=== PATIENT | female | born 1975 | race Caucasian/White ===

== ENCOUNTER 2020-06-14 08:10 | Outpatient (REF) | payer OTHER, SELFPAY ==
[2020-06-14 08:43] LABS: MANUAL DIFF FLAG NO
[2020-06-14 08:49] LABS: Basophils Absolute Auto 0.1 X10*3/uL (0.0-0.2); Basophils Percent Auto 1.2 % (0-2); Eosinophils Absolute Auto 0.1 X10*3/uL (0.0-0.4); Eosinophils Percent Auto 1.2 % (0-4); Hematocrit 39.7 % (37-47); Hemoglobin 12.8 g/dl (12.0-16.0); Imm Gran Abs Auto 0.02 X10*3/uL (0.00-0.03); Imm Gran Pct Auto 0.3 % (0.0-0.4); Lymphocytes Absolute Auto 2.3 X10*3/uL (1.2-4.9); Mean Corpuscular HGB Conc 32.2 g/dl (31.0-35.0); Mean Corpuscular Hemoglobin 27.5 pg (27.0-33.0); Mean Corpuscular Volume 85.2 fL (80-98); Mean Platelet Volume 11.4 fL (9.4-12.3); Monocytes Absolute Auto 0.7 X10*3/uL (0.1-1.2); Neutrophils Absolute Auto 3.5 X10*3/uL (2.0-8.3); Neutrophils Percent Auto 52.3 % (45-73); Platelet Count 292 X10*3/uL (160-400); Red Blood Count 4.66 X10*6/uL (4.20-5.50); Red Cell Distribution Width 13.9 % (11.0-16.0); White Blood Count 6.6 X10*3/uL (4.8-10.8)
[2020-06-14 09:04] LABS: Alanine Aminotransferase 14 U/L (0-31); Albumin Level 4.1 g/dL (3.5-5.0); Alkaline Phosphatase 71 U/L (39-117); Anion Gap 11 (12-20); Aspartate Amino Transferase 21 U/L (5-31); Bilirubin Total 0.7 mg/dL (0.0-1.0); Blood Urea Nitrogen 7 mg/dL (9-16); Calcium 8.9 mg/dL (8.4-10.2); Carbon Dioxide 26 mmol/L (22-29); Chloride 107 mmol/L (96-108); Cholesterol 171 mg/dL; Estimated Glomerular Filt Rate > 60; Glucose Fasting 99 mg/dL (60-99); HDL Cholesterol 42 mg/dL; LDL Cholesterol Calculated 116 mg/dl; Potassium 3.9 mmol/L (3.3-5.1); Sodium 140 mmol/L (135-145); Total Protein 7.1 g/dL (6.5-8.0); Triglycerides 68 mg/dL
[2020-06-14 09:26] LABS: TSH reflex Free T4 1.27 uIU/mL (0.32-4.0)
[2020-06-14 10:23] LABS: Folate 16.6 ng/mL (> or = 4.0); Vitamin B12 490 pg/mL (200-900)
[2020-06-19 13:26] LABS: Vitamin D 25-OH, D2 4 ng/mL; Vitamin D 25-OH, D3 21 ng/mL; Vitamin D 25-OH, Total 25 ng/mL (30-100)
== END 2020-06-14 08:11 | disposition home or self-care (01) ==
LOC: HO.LAB 08:10
PROVIDERS: PCP Internal Medicine; Visit Provider Internal Medicine
DX: R53.82 Chronic fatigue, unspecified (principal); E55.9 Vitamin D deficiency, unspecified; E78.5 Hyperlipidemia, unspecified
CPT/HCPCS: 36415; 80053; 80061; 82306; 82607; 82746; 84443; 85025

== ENCOUNTER 2020-09-21 11:20 | Outpatient (REF) | payer OTHER, SELFPAY ==
--- NOTE | ~2020-09-21 | MM_ITS ---
EXAMINATION: MM SCREENING DIGITAL BREAST TOMOSYNTHESIS, BILATERAL CLINICAL INFORMATION: Screening. Asymptomatic. The lifetime risk of breast cancer based on the Tyrer-Cuzick Model is 6.6%. COMPARISON: Mammography: September 16, 2019 and studies dating back to November 24, 2015 TECHNIQUE: Digital breast tomosynthesis is performed in both the craniocaudal and mediolateral oblique views along with computer-aided detection (CAD). Synthesized 2D images are generated from the tomosynthesis. FINDINGS: The breasts are heterogeneously dense, which may obscure small masses (ACR BI-RADS breast composition Category c). There are no significant masses, abnormal calcifications, or other abnormalities. There are stable calcifications present bilaterally right greater than left. MM/MM tomosynthesis screening BI IMPRESSION: There are no significant changes from prior study. ASSESSMENT: BI-RADS 2: Benign RECOMMENDATION: Routine annual mammography screening. This patient's information was entered into a reminder system with a target due date for their next mammogram.
== END 2020-09-21 11:21 | disposition home or self-care (01) ==
LOC: HO.MAMMO 11:20
PROVIDERS: PCP Internal Medicine; Visit Provider Internal Medicine
DX: Z12.31 Encounter for screening mammogram for malignant neoplasm of breast (principal)
CPT/HCPCS: 77063; 77067

== ENCOUNTER 2021-05-03 08:27 | Outpatient (REF) | payer OTHER, SELFPAY ==
--- NOTE | ~2021-05-03 | XR_ITS ---
EXAMINATION: XR ABDOMEN KUB CLINICAL INDICATION: Calculus of kidney COMPARISON: None TECHNIQUE: AP view of the abdomen. FINDINGS: There is scattered stool and gas seen throughout the colon without significant distention. No radiopaque renal calculi seen. There is solitary phlebolith in pelvis. The gallbladder has been surgically removed. No gross bony abnormality seen. There is partial lumbarization of S1 vertebra. XR/XR KUB IMPRESSION: Mild constipation. No acute process seen.
[2021-05-03 08:46] LABS: MANUAL DIFF FLAG NO
[2021-05-03 09:38] LABS: Basophils Absolute Auto 0.1 X10*3/uL (0.0-0.2); Basophils Percent Auto 1.1 % (0-2); Eosinophils Absolute Auto 0.1 X10*3/uL (0.0-0.4); Eosinophils Percent Auto 1.5 % (0-4); Hematocrit 38.9 % (37.0-47.0); Hemoglobin 12.5 g/dl (12.0-16.0); Imm Gran Abs Auto 0.04 X10*3/uL (0.00-0.03); Imm Gran Pct Auto 0.5 % (0.0-0.4); Lymphocytes Absolute Auto 2.5 X10*3/uL (1.2-4.9); Lymphocytes Percent Auto 33.1 % (20-40); Mean Corpuscular HGB Conc 32.1 g/dl (31.0-35.0); Mean Corpuscular Hemoglobin 27.5 pg (27.0-33.0); Mean Corpuscular Volume 85.7 fL (80.0-98.0); Mean Platelet Volume 11.1 fL (9.4-12.3); Monocytes Absolute Auto 0.7 X10*3/uL (0.1-1.2); Monocytes Percent Auto 8.8 % (2-11); Neutrophils Absolute Auto 4.1 x10*3/uL (2.0-8.3); Platelet Count 335 X10*3/uL (160-400); Red Blood Count 4.54 X10*6/uL (4.20-5.50); Red Cell Distribution Width 13.9 % (11.0-16.0); White Blood Count 7.4 X10*3/uL (4.8-10.8)
[2021-05-03 10:06] LABS: Alanine Aminotransferase 15 U/L (0-31); Albumin Level 3.9 g/dL (3.5-5.0); Alkaline Phosphatase 61 U/L (39-117); Anion Gap 11 (12-20); Aspartate Amino Transferase 13 U/L (5-31); Bilirubin Total 0.5 mg/dL (0.0-1.0); Blood Urea Nitrogen 8 mg/dL (9-16); Calcium 9.3 mg/dL (8.4-10.2); Carbon Dioxide 27 mmol/L (22-29); Chloride 108 mmol/L (96-108); Cholesterol 171 mg/dL; Estimated Glomerular Filt Rate > 60; Glucose Fasting 87 mg/dL (60-99); HDL Cholesterol 48 mg/dL; LDL Cholesterol Calculated 100 mg/dl; Potassium 4.6 mmol/L (3.3-5.1); Sodium 141 mmol/L (135-145); Total Protein 6.8 g/dL (6.5-8.0); Triglycerides 118 mg/dL
[2021-05-07 13:56] LABS: Vitamin D 25-OH, D2 <4 ng/mL; Vitamin D 25-OH, D3 19 ng/mL; Vitamin D 25-OH, Total 19 ng/mL (30-100)
== END 2021-05-03 08:28 | disposition home or self-care (01) ==
LOC: HO.LAB 08:27
PROVIDERS: PCP Internal Medicine; Visit Provider Internal Medicine
DX: Z00.00 Encounter for general adult medical examination without abnormal findings (principal); R53.82 Chronic fatigue, unspecified; E55.9 Vitamin D deficiency, unspecified; N20.0 Calculus of kidney
CPT/HCPCS: 36415; 74018; 80053; 80061; 82306; 85025

== ENCOUNTER 2021-09-22 13:07 | Outpatient (REF) | payer OTHER, SELFPAY ==
--- NOTE | ~2021-09-22 | MM_ITS ---
EXAMINATION: MM SCREENING DIGITAL BREAST TOMOSYNTHESIS, BILATERAL CLINICAL INFORMATION: Screening. Asymptomatic. The lifetime risk of breast cancer based on the Tyrer-Cuzick Model is 7%. COMPARISON: Mammography: 09/21/2020, 09/16/2019, 03/28/2018; ultrasound right breast 08/11/2019, 01/16/2019; ultrasound left breast 06/19/2018. TECHNIQUE: Digital breast tomosynthesis is performed in both the craniocaudal and mediolateral oblique views along with computer-aided detection (CAD). Synthesized 2D images are generated from the tomosynthesis. FINDINGS: The breasts are heterogeneously dense, which may obscure small masses (ACR BI-RADS breast composition Category c). Parenchymal pattern is similar to prior studies. There is no developing density or architectural abnormality. Punctate calcification central and outer right breast are similar to prior studies. There are other benign coarse calcifications again seen as well. The axilla and skin contours are unremarkable. No significant changes. MM/MM tomosynthesis screening BI IMPRESSION: No significant changes from prior studies. ASSESSMENT: BI-RADS 2: Benign RECOMMENDATION: Routine annual mammography screening. This patient's information was entered into a reminder system with a target due date for their next mammogram.
== END 2021-09-22 13:08 | disposition home or self-care (01) ==
LOC: HO.MAMMO 13:07
PROVIDERS: PCP Internal Medicine; Visit Provider Internal Medicine
DX: Z12.31 Encounter for screening mammogram for malignant neoplasm of breast (principal)
CPT/HCPCS: 77063; 77067

== ENCOUNTER 2022-01-23 09:37 | Outpatient (REF) | payer OTHER, SELFPAY ==
[2022-01-24 09:25] LABS: CT PCR DETECTED (Not Detect.); NG PCR NOT DETECTED (Not Detect.)
== END 2022-01-23 09:38 | disposition home or self-care (01) ==
LOC: HO.LNP 09:37
PROVIDERS: PCP Internal Medicine; Visit Provider Obstetrics & Gynecology
DX: Z32.02 Encounter for pregnancy test, result negative (principal); R10.2 Pelvic and perineal pain; R31.29 Other microscopic hematuria
CPT/HCPCS: 81025; 87086; 87088; 87186; 87491; 87591; 99202

== ENCOUNTER 2022-01-25 05:59 | Outpatient (REF) | payer OTHER, SELFPAY ==
[2022-01-25 08:40] LABS: HBsAGNum1 0.31 S/CO (0.00-0.99); HIV AB/AG Nonreactive (Nonreactive); HIV Num 1 0.06 S/CO (0.00-0.99); Hepatitis B Surface Antigen Negative (Negative); ~HepC Num1 0.08 S/CO (0.00-0.79); ~Hepatitis C Antibody Nonreactive (Nonreactive)
[2022-01-26 05:12] LABS: Syphilis Screen Nonreactive (Nonreactive)
== END 2022-01-25 06:00 | disposition home or self-care (01) ==
LOC: HO.LAB 05:59
PROVIDERS: PCP Internal Medicine; Visit Provider Obstetrics & Gynecology
DX: Z11.4 Encounter for screening for human immunodeficiency virus [HIV] (principal); Z11.59 Encounter for screening for other viral diseases; A74.9 Chlamydial infection, unspecified
CPT/HCPCS: 36415; 86780; 86803; 87340; 87389

== ENCOUNTER 2022-02-13 12:09 | Outpatient (REF) | payer OTHER, SELFPAY ==
[2022-02-13 18:18] LABS: CT PCR NOT DETECTED (Not Detect.); NG PCR NOT DETECTED (Not Detect.)
== END 2022-02-13 12:10 | disposition home or self-care (01) ==
LOC: HO.LNP 12:09
PROVIDERS: PCP Internal Medicine; Visit Provider Obstetrics & Gynecology
DX: R31.29 Other microscopic hematuria (principal); Z86.19 Personal history of other infectious and parasitic diseases; Z32.02 Encounter for pregnancy test, result negative
CPT/HCPCS: 81025; 87491; 87591; 99212

== ENCOUNTER 2022-04-19 10:33 | Outpatient (REF) | payer OTHER, SELFPAY ==
--- NOTE | ~2022-04-19 | US_ITS ---
EXAM: Pelvic Ultrasound CLINICAL INDICATION: Pelvic and perineal pain COMPARISON: Pelvic ultrasound 06/27/2015 TECHNIQUE: The pelvis was evaluated using transabdominal and transvaginal imaging. FINDINGS: The uterus measures 9.6 x 5.0 x 5.9 cm in longitudinal by AP by transverse dimension. The endometrial stripe is not thickened and measures 0.7 cm. Some ill-defined hypoechoic regions within the posterior uterine fundus are nonspecific but possibly represent small fibroids. The left ovary measures approximately 4.0 x 2.1 x 3.2 cm and contains a 2 cm cyst, possibly corpus luteum. The right ovary measures approximately 3.0 x 1.3 x 1.8 cm and is normal. There are no abnormal adnexal masses. There is no free fluid in the pelvis. US/US pelvic and transvaginal IMPRESSION: -Normal thickness endometrial stripe. -Possible small posterior fundal fibroids.
== END 2022-04-19 10:34 | disposition home or self-care (01) ==
LOC: HO.US 10:33
PROVIDERS: PCP Internal Medicine; Visit Provider Obstetrics & Gynecology
DX: R10.2 Pelvic and perineal pain (principal)
CPT/HCPCS: 76830; 76856

== ENCOUNTER 2022-07-17 10:23 | Outpatient (REF) | payer OTHER, SELFPAY ==
[2022-07-17 14:33] LABS: CT PCR NOT DETECTED (Not Detect.); NG PCR NOT DETECTED (Not Detect.)
[2022-07-19 00:03] LABS: HPV mRNA E6/E7 rflx Not Detected (Not Detected)
== END 2022-07-17 10:24 | disposition home or self-care (01) ==
LOC: HO.LNP 10:23
PROVIDERS: PCP Internal Medicine; Visit Provider Obstetrics & Gynecology
DX: Z01.419 Encounter for gynecological examination (general) (routine) without abnormal findings (principal); Z11.51 Encounter for screening for human papillomavirus (HPV); R10.2 Pelvic and perineal pain; A74.9 Chlamydial infection, unspecified; R31.29 Other microscopic hematuria
CPT/HCPCS: 0353U; 87086; 87088; 87186; 87624; 88142; 99212

== ENCOUNTER 2022-08-08 08:26 | Outpatient (REF) | payer OTHER, SELFPAY | END 2022-08-08 08:27 | disposition home or self-care (01) | LOC: HO.LNP 08:26 | PROVIDERS: PCP Internal Medicine; Visit Provider Obstetrics & Gynecology | DX: R31.29 Other microscopic hematuria (principal) | CPT/HCPCS: 87086; 87088; 87186; 99212 ==

== ENCOUNTER 2022-08-10 12:39 | Emergency (ER) | payer OTHER, SELFPAY ==
--- NOTE | ~2022-08-10 | CT_ITS ---
EXAMINATION: CT ABDOMEN AND PELVIS WITH CONTRAST CLINICAL INFORMATION: Right-sided flank pain. COMPARISON: None available. TECHNIQUE: Multidetector volumetric images were obtained from the superior aspect of the liver through the pubic symphysis following administration 85 mL of Omnipaque 350 intravenous contrast. Sagittal and coronal reformatted images were obtained on the technologist's workstation. Oral contrast: No This CT examination was performed using dose optimization techniques as appropriate, variously including the following: *Automated exposure control *Adjustment of mA and/or kV according to patient size (this includes techniques or standardized protocols for targeted exams where dose is matched to indication/reason for exam; i.e. extremities or head) *Use of iterative reconstruction technique DLP: 534 mGy-cm FINDINGS: LUNG BASES: Mild hypoventilatory changes are present at both lung bases. LIVER, GALLBLADDER, AND BILIARY TREE: The liver is normal in size, shape, and attenuation. No focal hepatic lesion or biliary ductal dilatation is present. The gallbladder is surgically absent. No evidence of any intrahepatic or extremity biliary ductal dilatation present. PANCREAS: Unremarkable. SPLEEN: Unremarkable. ADRENAL GLANDS: Unremarkable. KIDNEYS AND URETERS: The kidneys are normal in size, shape, and attenuation. No hydronephrosis, hydroureter, or calculi seen. No perinephric stranding. Note is made of 2 radiopaque densities within the left lower hemipelvis, likely represent phlebolith and less likely to be distal left ureteric calculi (628 and [phone] series 4). BLADDER: Suboptimally distended. GASTROINTESTINAL TRACT: The small, large bowel loops are decompressed. The stomach is decompressed. Significant fecal residual is noted throughout the entire large bowel mostly to the right-sided colon. Nonvisualized appendix without any inflammatory changes around the cecum. Multiple nonopacified fluid-filled bowel loops are noted involving the distal ileum. ABDOMINAL WALL: No significant hernia is appreciated. LYMPH NODES: There are no pathologically enlarged retroperitoneal, mesenteric, pelvic and/or groin/inguinal lymphadenopathy. VASCULAR: Unremarkable. PELVIC VISCERA: Small volume free fluid is present within the dependent part of the pelvis and around both adnexal region (right greater than left). There appears to be hemorrhagic follicle present within the right ovary measuring approximately 1.8 cm at its maximum dimension. No evidence of any free air. OSSEOUS STRUCTURES: Transitional lumbar vertebra is present. Mild diffuse osteopenia. No suspicious focal lesion. CT/CT abdomen pelvis w IV con IMPRESSION: 1. No CT evidence of any radiopaque definite urinary tract calculi and/or obstruction. 2. Nonvisualized appendix without any inflammatory changes around the cecum. 3. Small volume free fluid within the dependent part of the pelvis and features suggestive of hemorrhagic follicle within the right ovary. 4. Surgically absent gallbladder and decompressed biliary tree. Fleischner guidelines were followed.
[2022-08-10 12:47] VITALS: BP 138/71; PULSE 72; RESP 20; TEMP 36; O2SAT 98; BMI 23.9
--- NOTE | 2022-08-10 12:48 | ED.GENADULT ---
HPI - General Adult General Chief complaint: Urogenital-Female Stated complaint: Back and Leg Pain Time Seen by Provider: 08/10/22 15:15 History of Present Illness HPI narrative: patient complains of right upper abdominal pain as well as right flank pain for past several days, pain is not changed by movement, there is no nausea vomiting diarrhea, there is mild dysuria and she is being treated with Macrobid, denies any fever chills, she is able to tolerate p.o., there is no chest pain no shortness of breath Related Data Home Medications Medication Instructions Recorded Confirmed gabapentin 400 mg capsule 400 mg PO TID 03/16/20 03/20/21 melatonin 5 mg tablet 500f10 mg PO BEDTIME PRN insomnia 03/16/20 03/20/21 mirtazapine 15 mg tablet 15 mg PO BEDTIME 03/16/20 03/20/21 risperidone 0.5 mg tablet 0.5 mg PO BEDTIME 03/16/20 03/20/21 Previous Rx's Medication Instructions Recorded calcitriol 0.25 mcg capsule 0.25 mcg PO DAILY 90 days #90 caps 09/14/21 ketorolac 10 mg tablet 10 mg PO TID PRN pain 5 days #15 08/10/22 tabs lidocaine 5 % topical patch 1 patch topical DAILY PRN pain #15 08/10/22 ea nitrofurantoin 100 mg PO BID 5 days #10 caps 08/10/22 monohydrate/macrocrystals 100 mg capsule (Macrobid) Allergies Allergy/AdvReac Type Severity Reaction Status Date / Time eggplant [EGGPLANT] Allergy Severe THROAT Verified 08/08/22 08:37 CLOSING sertraline Allergy Severe Nausea and Verified 08/08/22 08:37 Vomiting PMFSH Past Medical History Source: nursing notes reviewed Medical History Cervical radiculopathy Chronic fatigue Depression with anxiety Encounter for physical examination Insomnia Mild asthma Muscle spasm Surgical History History of section History of cholecystectomy History of tubal ligation Family History Family History Father Hypertension Diabetes Mother Hypertension Depression H/O: pituitary tumor Mental health disorder Son Hypoplastic anemia Sister History of kidney cancer Maternal Grandmother Cancer Social History Social History Housing: Apartment Alcohol intake: current Alcohol intake frequency: holidays/special occasions only Alcohol type: beer and wine Patient Tobacco Use Status: Current someday Tobacco user Tobacco use type: Cigarette Cigarettes Per Day: 3 e-Cigarette/Vaping Use: Never Used Second Hand Smoke Exposure: Yes Substance Use Type: Marijuana Advance Directives: No Advance Directives Information Provided: No service: No Current occupational status: disabled Cognitive needs: Yes (Cane) Hearing needs: No Vision needs: Yes (Glasses) Physical Exam ED Vital Signs: Vital Signs - 24 hr 08/10/22 12:47 08/10/22 15:49 08/10/22 17:24 Temperature 96.8 F 98.3 F 98.0 F Pulse Rate 72 65 66 Respiratory Rate 20 16 16 Blood Pressure 138/71 100/63 109/69 Pulse Oximetry 98 97 97 Oxygen Delivery Method Room Air Room Air Room Air BMI result Body Mass Index 23.9 general appearance is no acute distress The pharynx is moist no redness swelling or exudate Neck is supple Chest clear to auscultation bilateral Heart no murmur The abdomen had right upper quadrant tenderness as well as right flank tenderness and right CVA tenderness, there is no improvement or worsening with movement, no rebound no guarding Extremities range motion x4 Skin no rash Neuro no focal deficits Course Course Course Narrative: This is an RME: Additional HPI, ROS, PE not included below will be deferred to primary provider. Patient is a 47 year old female with a past medical history of uterine myoma and pelvic pain presents with RUQ pain radiating to back. Patient is currently being treated with macrobid for a UTI. The first course failed so she is on a second course of the same antibiotic. Patient denies fever, chills, shortness of breath, and weakness. Plan: labs, imaging: CT abdomen and pelvis Patient had tubal ligation 26 years ago Exam showed right upper quadrant and right flank tenderness, Labs CBC chemistry and urinalysis were negative At 07:[address] results pending case is signed out to physician assistant gonzales to follow CT results re-evaluate and dispo patient Reevaluation(s) Reevaluation #1: Patient's CT scan with no evidence of radiopaque urinary tract calculi and/or obstruction, nonvisualized appendix without inflammatory changes, patient's tenderness is not to low right lower quadrant therefore unlikely that this is atypical presentation of appendicitis. Small volume of free fluid within the dependent part of the pelvis and features suggestive of hemorrhagic follicle within the right ovary, no pelvic pain, vaginal bleeding or discharge. Will have her follow-up with OBGYN. Surgically absent gallbladder and decompressed biliary tree. Patient comfortable. Will discharge home on Toradol, Lidoderm patches. Likely musculoskeletal. Medications Administered Discontinued Medications Generic Name Dose Route Start Last Admin Trade Name Freq PRN Reason Stop Dose Admin Iohexol 100 ml 08/10/22 18:03 08/10/22 18:03 Iohexol 350 Mg/Ml 100 Ml Infus..Btl IV 08/10/22 18:04 85 ml ONCE ONE Administration Medical Decision Making Lab Data 08/10/22 13:10 08/10/22 13:10 Labs: Lab Results 08/10/22 08/10/22 08/10/22 Range/Units 13:10 13:10 13:10 WBC 7.1 (4.8-10.8) X10*3/uL RBC 4.78 (4.20-5.50) X10*6/uL Hgb 13.3 (12.0-16.0) g/dl Hct 40.6 (37.0-47.0) % MCV 84.9 (80.0-98.0) fL MCH 27.8 (27.0-33.0) pg MCHC 32.8 (31.0-35.0) g/dl RDW 14.2 (11.0-16.0) % Plt Count 256 (160-400) X10*3/uL MPV 11.1 (9.4-12.3) fL Immature Gran % (Auto) 0.3 (0.0-0.4) % Neut % (Auto) 61.9 (45-73) % Lymph % (Auto) 27.0 (20-40) % [place] % (Auto) 8.9 (2-11) % Eos % (Auto) 0.8 (0-4) % Baso % (Auto) 1.1 (0-2) % Lymph # (Auto) 1.9 (1.2-4.9) X10*3/uL [place] # (Auto) 0.6 (0.1-1.2) X10*3/uL Eos # (Auto) 0.1 (0.0-0.4) X10*3/uL Baso # (Auto) 0.1 (0.0-0.2) X10*3/uL Abs Immat Gran (auto) 0.02 (0.00-0.03) X10*3/uL Absolute Neuts (auto) 4.4 (2.0-8.3) x10*3/uL Absolute Nucleated RBC 0.000 (0.0-0.012) X10*3/uL Nucleated RBC % (auto) 0.0 (0.0-0.2) /100WBC Sodium 141 (135-145) mmol/L Potassium 4.1 (3.3-5.1) mmol/L Chloride 110 H (96-108) mmol/L Carbon Dioxide 24 (22-29) mmol/L Anion Gap 11 L (12-20) BUN 9 (9-16) mg/dL Creatinine 0.65 (0.5-1.4) mg/dL Estim Creat Clear Calc 100.1 Estimated GFR > 60 Random Glucose 97 (60-115) mg/dL Lactic Acid 1.1 (0.5-2.0) mmol/L Calcium 9.4 (8.4-10.2) mg/dL Magnesium 1.9 (1.6-2.6) mg/dL Total Bilirubin 0.2 (0.0-1.0) mg/dL AST 16 (5-31) U/L ALT 14 (0-31) U/L Alkaline Phosphatase 54 (39-117) U/L Total Protein 7.2 (6.5-8.0) g/dL Albumin 4.0 (3.5-5.0) g/dL Urine Color Urine Appearance Urine pH (5.0-9.0) Ur Specific [place] (1.005-1.025) Urine Protein (Neg-Trace) mg/dL Urine Glucose (UA) (Negative) mg/dL Urine Ketones (Negative) mg/dL Urine Blood (Negative) Urine Nitrite (Negative) Ur Leukocyte Esterase (Negative) 08/10/22 Range/Units 18:12 WBC (4.8-10.8) X10*3/uL RBC (4.20-5.50) X10*6/uL Hgb (12.0-16.0) g/dl Hct (37.0-47.0) % MCV (80.0-98.0) fL MCH (27.0-33.0) pg MCHC (31.0-35.0) g/dl RDW (11.0-16.0) % Plt Count (160-400) X10*3/uL MPV (9.4-12.3) fL Immature Gran % (Auto) (0.0-0.4) % Neut % (Auto) (45-73) % Lymph % (Auto) (20-40) % [place] % (Auto) (2-11) % Eos % (Auto) (0-4) % Baso % (Auto) (0-2) % Lymph # (Auto) (1.2-4.9) X10*3/uL [place] # (Auto) (0.1-1.2) X10*3/uL Eos # (Auto) (0.0-0.4) X10*3/uL Baso # (Auto) (0.0-0.2) X10*3/uL Abs Immat Gran (auto) (0.00-0.03) X10*3/uL Absolute Neuts (auto) (2.0-8.3) x10*3/uL Absolute Nucleated RBC (0.0-0.012) X10*3/uL Nucleated RBC % (auto) (0.0-0.2) /100WBC Sodium (135-145) mmol/L Potassium (3.3-5.1) mmol/L Chloride (96-108) mmol/L Carbon Dioxide (22-29) mmol/L Anion Gap (12-20) BUN (9-16) mg/dL Creatinine (0.5-1.4) mg/dL Estim Creat Clear Calc Estimated GFR Random Glucose (60-115) mg/dL Lactic Acid (0.5-2.0) mmol/L Calcium (8.4-10.2) mg/dL Magnesium (1.6-2.6) mg/dL Total Bilirubin (0.0-1.0) mg/dL AST (5-31) U/L ALT (0-31) U/L Alkaline Phosphatase (39-117) U/L Total Protein (6.5-8.0) g/dL Albumin (3.5-5.0) g/dL Urine Color Yellow Urine Appearance Clear Urine pH 7.5 (5.0-9.0) Ur Specific [place] 1.010 (1.005-1.025) Urine Protein Negative (Neg-Trace) mg/dL Urine Glucose (UA) Negative (Negative) mg/dL Urine Ketones Negative (Negative) mg/dL Urine Blood Negative (Negative) Urine Nitrite Negative (Negative) Ur Leukocyte Esterase Negative (Negative) Critical Care Time Critical Care Time Critical Care Time: No Discharge Plan Discharge Clinical Impression: Acute right flank pain, Flank pain Patient Disposition: Home, Self-Care Instructions: Flank Pain (ED) Additional Instructions: Take your medications as prescribed. If you were prescribed antibiotics today, it is important that you take your medication to their entirety, do not skip any doses, do not finish them early. Follow-up with your primary care provider this week. Return to the emergency department with new or worsening symptoms. Such as fevers, chills, chest pain, shortness of breath, nausea, vomiting, dizziness, headache, vision changes, lethargy In case of emergency call 911 Toradol has been sent to your pharmacy, you tolerated this well in the department. Please take this as prescribed do not take this with ibuprofen, or other NSAIDs, do not mix this with alcohol. Side effects of this medication including increased risk for bleeding and possible kidney injury. CT/CT abdomen pelvis w IV con IMPRESSION: ? 1. No CT evidence of any radiopaque definite urinary tract calculi and/or obstruction. 2. Nonvisualized appendix without any inflammatory changes around the cecum. 3. Small volume free fluid within the dependent part of the pelvis and features suggestive of hemorrhagic follicle within the right ovary. 4. Surgically absent gallbladder and decompressed biliary tree.? ? Fleischner guidelines were followed. Prescriptions: New ketorolac 10 mg tablet 10 mg PO TID PRN (Reason: pain) 5 Days Qty: 15 0RF lidocaine 5 % adhesive patch,medicated 1 patch topical DAILY PRN (Reason: pain) Qty: 15 0RF Rx Instructions: leave on most painful area for up to 12 hrs No Action calcitriol 0.25 mcg capsule 0.25 mcg PO DAILY 90 Days Qty: 90 1RF nitrofurantoin monohyd/m-cryst [Macrobid] 100 mg capsule 100 mg PO BID 5 Days Qty: 10 0RF risperidone 0.5 mg tablet 0.5 mg PO BEDTIME mirtazapine 15 mg tablet 15 mg PO BEDTIME melatonin 5 mg tablet 500f10 mg PO BEDTIME PRN (Reason: insomnia) gabapentin 400 mg capsule 400 mg PO TID Referrals: Tali Clemente MD [Primary Care Provider] - 2 days Stand Alone Forms: Work/School Release
[2022-08-10 13:17] LABS: MANUAL DIFF FLAG NO
[2022-08-10 13:18] LABS: Basophils Absolute Auto 0.1 X10*3/uL (0.0-0.2); Basophils Percent Auto 1.1 % (0-2); Eosinophils Absolute Auto 0.1 X10*3/uL (0.0-0.4); Eosinophils Percent Auto 0.8 % (0-4); Hematocrit 40.6 % (37.0-47.0); Hemoglobin 13.3 g/dl (12.0-16.0); Imm Gran Abs Auto 0.02 X10*3/uL (0.00-0.03); Imm Gran Pct Auto 0.3 % (0.0-0.4); Lymphocytes Absolute Auto 1.9 X10*3/uL (1.2-4.9); Mean Corpuscular HGB Conc 32.8 g/dl (31.0-35.0); Mean Corpuscular Hemoglobin 27.8 pg (27.0-33.0); Mean Corpuscular Volume 84.9 fL (80.0-98.0); Mean Platelet Volume 11.1 fL (9.4-12.3); Monocytes Absolute Auto 0.6 X10*3/uL (0.1-1.2); Monocytes Percent Auto 8.9 % (2-11); Neutrophils Absolute Auto 4.4 x10*3/uL (2.0-8.3); Neutrophils Percent Auto 61.9 % (45-73); Platelet Count 256 X10*3/uL (160-400); Red Blood Count 4.78 X10*6/uL (4.20-5.50); Red Cell Distribution Width 14.2 % (11.0-16.0); White Blood Count 7.1 X10*3/uL (4.8-10.8)
[2022-08-10 13:44] LABS: Lactic Acid 1.1 mmol/L (0.5-2.0)
[2022-08-10 13:51] LABS: Alanine Aminotransferase 14 U/L (0-31); Alkaline Phosphatase 54 U/L (39-117); Anion Gap 11 (12-20); Aspartate Amino Transferase 16 U/L (5-31); Bilirubin Total 0.2 mg/dL (0.0-1.0); Blood Urea Nitrogen 9 mg/dL (9-16); Calcium 9.4 mg/dL (8.4-10.2); Carbon Dioxide 24 mmol/L (22-29); Chloride 110 mmol/L (96-108); Creatinine Clr Calc Pharmacy 100.1; Estimated Glomerular Filt Rate > 60; Glucose Random 97 mg/dL (60-115); Magnesium 1.9 mg/dL (1.6-2.6); Potassium 4.1 mmol/L (3.3-5.1); Sodium 141 mmol/L (135-145); Total Protein 7.2 g/dL (6.5-8.0)
[2022-08-10 15:49] VITALS: BP 100/63; PULSE 65; RESP 16; TEMP 36.8; O2SAT 97
[2022-08-10 17:24] VITALS: BP 109/69; PULSE 66; RESP 16; TEMP 36.7; O2SAT 97
[2022-08-10] MEDS: iohexoL 350 MG/ML 100 ML INFUS..BTL IV (18:03)
[2022-08-10 18:25] LABS: Appearance Urine Clear; Color Urine Yellow; Glucose Urine UA Negative (Negative); Leukocyte Esterase Urine Negative (Negative); Nitrite Urine Negative (Negative); PH 7.5 (5.0-9.0); Urine Blood Negative (Negative); Urine Ketones Negative (Negative); Urine Protein Negative (Neg-Trace)
[2022-08-10 19:41] VITALS: BP 122/67; PULSE 67; RESP 14; O2SAT 97
[2022-08-10] MEDS: Lidocaine 4 % Patch ADH..PATCH 1 PATCH TRANSDERMA (19:42)
[2022-08-10] MEDS: Ketorolac Tromethamine 15 MG/ML VIAL 30 MG IM (19:43)
== END 2022-08-10 19:57 | disposition home or self-care (01) ==
PROVIDERS: Physician Assistant; Emergency Provider Emergency Medicine Emergency Medical Services; PCP Internal Medicine
DX: R10.9 Unspecified abdominal pain (principal); F17.210 Nicotine dependence, cigarettes, uncomplicated; F12.90 Cannabis use, unspecified, uncomplicated
CPT/HCPCS: 36415; 74177; 80053; 81003; 83605; 83735; 85025; 87040; 96372; 99284; J1885; Q9967

== ENCOUNTER 2022-09-04 16:58 | Outpatient (AMB) | payer OTHER, SELFPAY ==
[2022-09-04 17:01] VITALS: BP 110/74; BMI 23.6
--- NOTE | 2022-09-04 17:01 | MHC.PC.OV ---
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 Accompanied by: Self / Same As Patient Allergies eggplant [EGGPLANT] Allergy (Severe, Verified 09/04/22 17:10) THROAT CLOSING sertraline Allergy (Severe, Verified 09/04/22 17:10) Nausea and Vomiting Medication List - Last Reconciled 09/04/22 by Tali Rivera MD calcitriol 0.25 mcg PO DAILY 90 days gabapentin 400 mg PO TID ketorolac 10 mg PO TID PRN 5 days melatonin 500f10 mg PO BEDTIME PRN mirtazapine 15 mg PO BEDTIME risperidone 0.5 mg PO BEDTIME Tobacco use date assessed: 09/04/22 Dental Screening Dental Screen Date: 09/04/22 Did you have a dental visit in the last 12 months?: Yes Did you have a dental problem in the last 6 months where you did not have access to dental care?: No Was dental information given to patient?: Patient has dentist HPI HPI Comments History of Present Illness Details This is a 47-year-old female that comes today complaining of lumbar pain radiating to the right leg and associated with right leg numbness that has been present for about 4-6 weeks. She denies any fever, bowel or bladder incontinence. On gabapentin for her sciatica. Went to ER due to this matter last month and they thought he was flank pain and did a CT scan of the abdomen and pelvis. She also has and ovarian abnormality follow by OBGYN. [facility] Medical History Cervical radiculopathy Chronic fatigue Depression with anxiety Encounter for physical examination Insomnia Mild asthma Muscle spasm Surgical History History of section History of cholecystectomy History of tubal ligation Family History Father Hypertension Diabetes Mother Hypertension Depression H/O: pituitary tumor Mental health disorder Son Hypoplastic anemia Sister History of kidney cancer Maternal Grandmother Cancer Social History Housing: Apartment Alcohol intake: current Alcohol intake frequency: holidays/special occasions only Alcohol type: beer and wine Patient Tobacco Use Status: Current someday Tobacco user Tobacco use type: Cigarette Cigarettes Per Day: 3 e-Cigarette/Vaping Use: Never Used Second Hand Smoke Exposure: Yes Substance Use Type: Marijuana service: No Current occupational status: disabled Cognitive needs: Yes (Cane) Hearing needs: No Vision needs: Yes (Glasses) Female Reproductive History Menstrual Age of Menarche: 11 Questionnaire PHQ-9 Over the last 2 weeks, how often have you been bothered by any of the following problems? 1. Little interest or pleasure in doing things: not at all 2. Feeling down, depressed, or hopeless: several days 3. Trouble falling or staying asleep, or sleeping too much: not at all 4. Feeling tired or having little energy: not at all 5. Poor appetite or overeating: not at all 6. Feeling bad about yourself - or that you are a failure or have let yourself or your family down: not at all 7. Trouble concentrating on things, such as reading the newspaper or watching television: not at all 8. Moving or speaking so slowly that other people could have noticed. Or the opposite - being so fidgety or restless that you have been moving around a lot more than usual: not at all 9. Thoughts that you would be better off or of hurting yourself in some way: not at all Total score: 1 Depression Screening Interpretation: Negative 35252 - PHQ-9 Billing: Yes Source: Developed by Drs. Joseluis Espinoza, Mirtha Link, Jonathan Trejo and colleagues, with an educational maryan from [employer]. Thrive Questionnaire Date Thrive assessed: 09/04/22 I am a: Patient What is your living situation today?: I have a steady place to live Within the past 12 months, did the food you bought not last and you didn't have the money to get more?: Never true Within the past 12 months, did you worry whether your food would run out before you got money to buy more?: Never true Do you have trouble paying for medicines?: No Do you have trouble getting transportation to medical appointments?: No Do you have trouble paying your heating and electricity bill?: No Do you have trouble taking care of your child, family member or friend?: No Do you have trouble with day-to-day activities such as bathing, preparing meals, shopping, managing finances, etc.?: No Are you currently unemployed and looking for a job?: No Are you interested in more education?: No Please select the resources that you would like help with: None Currently or been in a relationship where the following occur: no concerns reported AUDIT C Alcohol Use Questionnaire (AUDIT-C) 1. How often do you have a drink containing alcohol?: Monthly or less 2. How many drinks containing alcohol do you have on a typical day when you are drinking?: 1 or 2 3. How often do you have six or more drinks on one occasion?: Never Total Score: 1 Score Reviewed/Action Taken: No HELDER-7 AMB Questionnaire HELDER-7 Date HELDER - 7 assessed: 09/04/22 Feeling nervous, anxious, or on edge: 1 = Several days Not being able to stop or control worryin = Not at all Worrying too much about different things: 0 = Not at all Trouble relaxin = Not at all Being so restless that it is hard to sit still: 0 = Not at all Becoming easily annoyed or irritable: 0 = Not at all Feeling afraid as if something awful might happen: 0 = Not at all Total HELDER-7 score (0-4 normal; 5-9 mild; 10-14 moderate; 15-21 severe): 1 Source: Developed by Drs. Joseluis Espinoza, Mirtha Link, Jonathan Trejo and colleagues, with an educational maryan from [employer]. HELDER-7 Assessment Billing HELDER-7 Assessment Tool: HELDER-7 Assessment 99089 Review of Systems Const All systems reviewed & are unremarkable except as noted in HPI and below Eyes Reports no additional complaints, Denies change in vision and Denies other visual disturbances Card Denies chest pain at rest, Denies chest pain with activity, Denies edema, Denies irregular heart rhythm, Denies claudication, Denies dyspnea, Denies dyspnea on exertion, Denies orthopnea, Denies paroxysmal nocturnal dyspnea and Denies slow heart rate Resp Denies cough, Denies dyspnea and Denies dyspnea on exertion GI Denies abdominal pain, Denies change in bowel habits, Denies excessive flatus, Denies nausea and Denies vomiting Denies urinary incontinence, Denies urinary hesitancy and Denies urinary urgency Musc Denies abnormal gait, Reports back pain, Denies atrophy, Denies deformity, Denies limited range of motion, Reports numbness and Reports radiating pain into limb Skin/Breast Denies bleeding lesions, Denies changing lesions and Denies rash Neuro Denies abnormal gait, Denies lack of coordination and Reports numbness Physical exam (Primary Care) Vital Signs: Last Vital Signs BP 110/74 09/04/22 17:01 BMI result Body Mass Index 23.6 Tobacco/Smoking Status: Tobacco use Status Tobacco use date assessed 09/04/22 09/04/22 17:06 Patient Tobacco Use Status Current someday Tobacco 09/04/22 17:06 Tobacco use type Cigarette 09/04/22 17:06 e-Cigarette/Vaping Use Never Used 09/04/22 17:06 PHQ-9: PHQ-9 Score PHQ-9: Total score 1 09/04/22 17:06 Depression Screening Interpretation: Negative Thrive Assessment: Date of Thrive Assessment Date Thrive assessed 09/04/22 09/04/22 17:06 Currently or been in a relationship where the following occur: no concerns reported Eyes General: appearance normal, both eyes and all related structures Eyelids: Yes eyelids normal Conjunctivae: conjunctivae normal Neck Neck: Yes normal visual inspection and Yes supple Resp Effort & Inspection: normal respiratory effort Auscultation: clear to auscultation bilaterally Cardio Jugular venous distension: no JVD Rate: regular rate Rhythm: regular rhythm Heart sounds: S1 normal heart sound present and S2 normal heart sound present Back/Spine/Pelvis Thoracic/Lumbar Spine: straight leg raise positive bilateral Extrem General: Yes full ROM Assessment and Plan Assessment & Plan (1) Right sided sciatica: Code(s): M54.31 - Sciatica, right side Plan: Continue gabapentin. X-ray ordered. Referred to pain management. Orders: Orders XR hip RT min 2V Today M25.551 - Pain in right hip XR lumbar spine 2-3V Today M54.50 - Low back pain, unspecified Comprehensive [place]. Panel Fast Today M54.50 - Low back pain, unspecified Lipid Panel Today Z00.00 - Encounter for general adult medical examination without abnormal findings Vitamin D 25-OH Total Today E55.9 - Vitamin D deficiency, unspecified Referrals Pain Management Referral M54.31 - Sciatica, right side Coding Level of Care Code Est Pt Level 3 (37573) Diagnoses Right sided sciatica M54.31 Additional Codes HELDER-7 Assessment Billing - HELDER-7 Assessment Tool: HELDER-7 Assessment 61536 ([id number]) Time Spent (min) 17
== END 2022-09-04 17:19 | disposition home or self-care (01) ==
PROVIDERS: PCP Internal Medicine; Visit Provider Internal Medicine
DX: M54.31 Sciatica, right side (principal)
CPT/HCPCS: 99213

== ENCOUNTER 2022-09-11 09:19 | Outpatient (REF) | payer OTHER, SELFPAY ==
--- NOTE | ~2022-09-11 | XR_ITS ---
EXAMINATION: XR HIP, RIGHT CLINICAL INFORMATION: Pain COMPARISON: None available. TECHNIQUE: Two views of the right hip and AP pelvis. FINDINGS: No fracture. Alignment is anatomic. Hip joint space is maintained. Soft tissues are unremarkable. XR/XR hip RT w PEL1V IMPRESSION: Normal right hip.
--- NOTE | ~2022-09-11 | XR_ITS ---
EXAMINATION: XR LUMBOSACRAL SPINE CLINICAL INFORMATION: Low back pain COMPARISON: 11/20/2018 TECHNIQUE: Three views of the lumbosacral spine. FINDINGS: There are 5 not ribs bearing vertebral bodies and lumbar spine. The vertebral bodies and posterior elements are normal. The disc spaces are preserved and the vertebral alignment is normal. The paraspinal soft tissues are normal. XR/XR lumbar spine 2-3V IMPRESSION: Unremarkable examination.
[2022-09-11 11:07] LABS: Alanine Aminotransferase 15 U/L (0-31); Albumin Level 3.9 g/dL (3.5-5.0); Alkaline Phosphatase 48 U/L (39-117); Anion Gap 14 (12-20); Aspartate Amino Transferase 13 U/L (5-31); Bilirubin Total 0.5 mg/dL (0.0-1.0); Blood Urea Nitrogen 9 mg/dL (9-16); Calcium 9.2 mg/dL (8.4-10.2); Carbon Dioxide 22 mmol/L (22-29); Chloride 110 mmol/L (96-108); Cholesterol 161 mg/dL; Estimated Glomerular Filt Rate > 60; Glucose Fasting 88 mg/dL (60-99); HDL Cholesterol 43 mg/dL; LDL Cholesterol Calculated 101 mg/dl; Potassium 4.6 mmol/L (3.3-5.1); Sodium 141 mmol/L (135-145); Total Protein 6.9 g/dL (6.5-8.0); Triglycerides 85 mg/dL
[2022-09-11 11:22] LABS: Vitamin D 25-OH Total 23.8 ng/mL (>30)
== END 2022-09-11 09:20 | disposition home or self-care (01) ==
LOC: HO.LAB 09:19
PROVIDERS: PCP Internal Medicine; Visit Provider Internal Medicine
DX: E55.9 Vitamin D deficiency, unspecified (principal); Z00.00 Encounter for general adult medical examination without abnormal findings; M54.50 Low back pain, unspecified; G62.9 Polyneuropathy, unspecified
CPT/HCPCS: 36415; 72100; 73502; 80053; 80061; 82306; 99202

== ENCOUNTER 2022-09-11 09:59 | Outpatient (AMB) | payer OTHER, SELFPAY ==
--- NOTE | 2022-09-11 10:12 | A.OFFVIS_ITS ---
Intake Vital Signs 09/11/22 10:18 Height 5 ft 6 in Weight 144 lb 6 oz BMI 23.3 BP 114/56 L Blood Pressure Location Rt brachial Position Sitting Respiration 16 Pulse 70 Pulse Source Pulse Oximeter Pulse Oximetry (%) 98 Oxygen Delivery Method Room Air Intake Visit Reasons: RIGHT SIDED SCIATICA Allergies eggplant [EGGPLANT] Allergy (Severe, Verified 09/11/22 10:12) THROAT CLOSING sertraline Allergy (Severe, Verified 09/11/22 10:12) Nausea and Vomiting HPI HPI Comments History of Present Illness Details Britta is a very pleasant 47 year old female who presents to the office today for evaluation and management of right sided lower back pain with radiation down right leg. Patient reports the pain started over 3 months ago. She does not recall inciting injury but states she walks a lot and the pain is excruciating at times. Pain is worse in the morning when she tries to get out of bed, with ambulation, position changes, sleeping on right side and standing. Pain is constant, 9/10 today with burning/tingling and zapping pain down the right leg in anterior aspect of thigh, lateral lower leg to the right foot. She denies red flag symptoms including loss of bladder, bowel or saddle anesthesia. Patient reports the pain is negatively impacting her sleep, mood, mobility, enjoyment of life and ability to perform activities of daily living. She has tried NSAIDs without effect. She is currently taking gabapentin and using lidocaine patches with minimal relief. PCP ordered LS xray that patient completed this morning, she reports positioning for the xrays exacerbated her pain. She has not tried PT, massage, aqua therapy, chiropractor or acupuncture. She has not tried muscle relaxers. In terms of muscle damage condition is described as aching, shooting, stabbing, sharp, tingling, pins, needles and burning. Patient denies implantable devices, pacemaker or defibrillator. [facility], [facility] Medical History Cervical radiculopathy Chronic fatigue Depression with anxiety Encounter for physical examination Insomnia Mild asthma Muscle spasm Surgical History History of section History of cholecystectomy History of tubal ligation Family History Father Hypertension Diabetes Mother Hypertension Depression H/O: pituitary tumor Mental health disorder Son Hypoplastic anemia Sister History of kidney cancer Maternal Grandmother Cancer Social History Housing: Apartment Alcohol intake: current Alcohol intake frequency: holidays/special occasions only Alcohol type: beer and wine Patient Tobacco Use Status: Current someday Tobacco user Tobacco use type: Cigarette Cigarettes Per Day: 3 e-Cigarette/Vaping Use: Never Used Second Hand Smoke Exposure: Yes Substance Use Type: Marijuana service: No Current occupational status: disabled Cognitive needs: Yes (Cane) Hearing needs: No Vision needs: Yes (Glasses) Female Reproductive History Menstrual Age of Menarche: 11 Review of Systems Const All systems reviewed & are unremarkable except as noted in HPI and below Physical Exam Vital Signs: Last Vital Signs Pulse 70 09/11/22 10:18 Resp 16 09/11/22 10:18 BP 114/56 L 09/11/22 10:18 Pulse Ox 98 09/11/22 10:18 Oxygen Delivery Method Room Air 09/11/22 10:18 BMI result Body Mass Index 23.3 General: awake, alert, oriented. Answers questions appropriately. Fully engaged in examination. Skin: warm, dry, intact without visible rashes or lesions. HEENT: Normocephalic. Conjuntivae clear without exudate. Sclera non-icteric. Hearing intact. Cardiac: External chest normal in appearance. Respiratory: No signs of trauma. No signs of respiratory distress. No cough, audible wheezing or stridor. Abdomen: without gross distension. Neurological: Oriented to person, place, time and situation. Thought process intact. No gait abnormalities appreciated. Psychiatric: Appropriate mood and affect. Good judgment and insight. Back/Spine/Pelvis Other: Lumbar Spine visual inspection without gross abnormality Able to stand on bilateral tiptoes and bilateral heels. Able to transition from sit to stand unassisted. Ambulates with bilaterally normal heel strike and toe off Tender to palpation over paraspinal muscles in region of L2-3 to L4-5 Nontender to palpation over midline lumbar vertebrae Nontender to palpation over PSIS ROM: limited secondary to pain with extension to 10 degrees. flexion to 70 degrees Strength: 5/5 BLE Sensation: intact and symmetric BLE DTR: intact and symmetric Straight leg raises with and without dorsiflexion positive on Right, negative on Left CARITO positive on Right Assessment & Plan Assessment & Plan (1) Lumbar radiculopathy: Code(s): M54.16 - Radiculopathy, lumbar region (2) Neuropathy: Code(s): G62.9 - Polyneuropathy, unspecified Plan Britta is a very pleasant 47 year old female who presented to the office today for evaluation and management of her right lower back pain with radiculopathy and neuropathy. Xrays had been ordered by PCP, she completed them just prior to her appointment here today. Results unavailable at this time. Will order MRI to futher evaluate lumbar radiculopathy ongoing for greater than 3 months with no response to gabapentin and NSAIDS. PT eval and treat ordered Tizanidine 2mg po bid as needed. pt instructed on use. Patient to follow up here after MRI and several sessions of PT to evaluate response. Discussed options for treatment including diagnostic interventional testing, epidural steroid injections, peripheral nerve stimulation with Sprint, RFA and more permanent neuromodulation. If no reported improvement in symptoms at next visit will plan for Fluoroscopy guided L4/5 TFESI with local anesthetic. All questions and concerns have been answered and patient agrees with the plan. Follow up after injections and sooner if needed. Orders: Orders MR lumbar spine wo con Today G62.9 - Polyneuropathy, unspecified, M54.16 - Radiculopathy, lumbar region PT Evaluation and Treatment Today M54.16 - Radiculopathy, lumbar region Medications: New tizanidine do not drive or drink alcohol while taking this medication. 2 mg PO BID PRN 60 tabs 0RF muscle spasticity M54.16 - Radiculopathy, lumbar region Coding Level of Care Code New Pt Level 4 (56102) Diagnoses Lumbar radiculopathy M54.16 Neuropathy G62.9
[2022-09-11 10:18] VITALS: BP 114/56; PULSE 70; RESP 16; O2SAT 98; BMI 23.3
== END 2022-09-11 10:29 | disposition home or self-care (01) ==
PROVIDERS: PCP Internal Medicine; Visit Provider Registered Nurse Emergency
DX: M54.16 Radiculopathy, lumbar region (principal); G62.9 Polyneuropathy, unspecified
CPT/HCPCS: 99204

== ENCOUNTER 2022-09-19 14:52 | Outpatient (AMB) | payer OTHER, SELFPAY ==
--- NOTE | 2022-09-19 14:53 | MHC.PC.OV ---
Vital Signs 09/19/22 14:54 Height 5 ft 6 in Weight 150 lb BMI 24.2 BP 110/70 Blood Pressure Location Lt brachial Position Sitting Pulse 66 Pulse Source Pulse Oximeter Temp Source Skin Pulse Oximetry (%) 99 Oxygen Delivery Method Room Air Intake Visit Reasons: Physical exam Intake Note: Patient is here today for a physical. Charge Attendant Required: Yes Charge Attendant Language: [place] Allergies eggplant [EGGPLANT] Allergy (Severe, Verified 09/19/22 15:01) THROAT CLOSING sertraline Allergy (Severe, Verified 09/19/22 15:01) Nausea and Vomiting Medication List - Last Reconciled 09/19/22 by NITZA Almanzar cholecalciferol (vitamin D3) 25 mcg PO DAILY 90 days gabapentin 400 mg PO TID ketorolac 10 mg PO TID PRN 5 days melatonin 500f10 mg PO BEDTIME PRN mirtazapine 15 mg PO BEDTIME risperidone 0.5 mg PO BEDTIME tizanidine 2 mg PO BID PRN Tobacco use date assessed: 09/19/22 Dental Screening Dental Screen Date: 09/19/22 Did you have a dental visit in the last 12 months?: No Did you have a dental problem in the last 6 months where you did not have access to dental care?: No HPI Physical exam HPI Details Patient is a 47-year-old female who presents today for physical exam. Patient of Dr. Levine. Medical history significant for depression with anxiety-followed by Psychiatry and therapist, insomnia, mild asthma, microscopic hematuria-will be seeing Urology 10/2022, right-sided sciatica-followed by [facility]. Patient has an upcoming mammogram scheduled for 09/2022. Pap smear normal 07/2022 with [facility]. Patient has an upcoming appointment with [facility] this month for pre colonoscopy screening. Today we discussed patient's need for tetanus vaccine. Patient reports that she will call her eye doctor for an exam. Patient denies shortness of breath or chest pain. 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 FORMERLY [facility], [facility] Medical History Cervical radiculopathy Chronic fatigue Depression with anxiety Encounter for physical examination Insomnia Mild asthma Muscle spasm Surgical History History of section History of cholecystectomy History of tubal ligation Family History Father Hypertension Diabetes Mother Hypertension Depression H/O: pituitary tumor Mental health disorder Son Hypoplastic anemia Sister History of kidney cancer Maternal Grandmother Cancer Social History Housing: Apartment Alcohol intake: current Alcohol intake frequency: holidays/special occasions only Alcohol type: beer and wine Patient Tobacco Use Status: Current someday Tobacco user Tobacco use type: Cigarette Cigarettes Per Day: 3 e-Cigarette/Vaping Use: Never Used Second Hand Smoke Exposure: Yes Substance Use Type: Marijuana service: No Current occupational status: disabled Cognitive needs: Yes (Cane) Hearing needs: No Vision needs: Yes (Glasses) Female Reproductive History Menstrual Age of Menarche: 11 Questionnaire PHQ-9 Over the last 2 weeks, how often have you been bothered by any of the following problems? 1. Little interest or pleasure in doing things: not at all 2. Feeling down, depressed, or hopeless: several days 3. Trouble falling or staying asleep, or sleeping too much: not at all 4. Feeling tired or having little energy: not at all 5. Poor appetite or overeating: not at all 6. Feeling bad about yourself - or that you are a failure or have let yourself or your family down: not at all 7. Trouble concentrating on things, such as reading the newspaper or watching television: not at all 8. Moving or speaking so slowly that other people could have noticed. Or the opposite - being so fidgety or restless that you have been moving around a lot more than usual: not at all 9. Thoughts that you would be better off or of hurting yourself in some way: not at all Total score: 1 Depression Screening Interpretation: Negative [id number] - PHQ-9 Billing: Yes Source: Developed by Drs. Joseluis Espinoza, Mirtha Link, Jonathan Trejo and colleagues, with an educational maryan from [employer]. Thrive Questionnaire Date Thrive assessed: 09/04/22 AUDIT C Alcohol Use Questionnaire (AUDIT-C) 1. How often do you have a drink containing alcohol?: Monthly or less 2. How many drinks containing alcohol do you have on a typical day when you are drinking?: 1 or 2 3. How often do you have six or more drinks on one occasion?: Never Total Score: 1 Score Reviewed/Action Taken: No HELDER-7 AMB Questionnaire HELDER-7 Date HELDER - 7 assessed: 09/04/22 Feeling nervous, anxious, or on edge: 0 = Not at all Not being able to stop or control worryin = Not at all Worrying too much about different things: 0 = Not at all Trouble relaxin = Not at all Being so restless that it is hard to sit still: 0 = Not at all Becoming easily annoyed or irritable: 0 = Not at all Feeling afraid as if something awful might happen: 0 = Not at all Total HELDER-7 score (0-4 normal; 5-9 mild; 10-14 moderate; 15-21 severe): 0 Source: Developed by Drs. Joseluis Espinoza, Mirtha Link, Jonathan Trejo and colleagues, with an educational maryan from [employer]. HELDER-7 Assessment Billing HELDER-7 Assessment Tool: HELDER-7 Assessment 93235 Review of Systems Const Denies body aches, Denies chills, Denies fever(s) and Denies headache(s) Eyes Denies change in vision ENT Denies dizziness, Denies otalgia, Denies headache(s), Denies nasal discharge, Denies sinus pain and Denies sore throat Card Denies chest pain, Denies edema, Denies lightheadedness and Denies dyspnea Resp Denies cough, Denies dyspnea and Denies wheezing GI Denies abdominal pain, Denies constipation, Denies diarrhea, Denies nausea and Denies vomiting Denies dysuria Musc Reports back pain and Denies myalgias Skin/Breast Denies rash Neuro Denies dizziness and Denies headache(s) Aller/Immun Denies wheezing Physical exam (Primary Care) Vital Signs: Last Vital Signs Pulse 66 09/19/22 14:54 BP 110/70 09/19/22 14:54 Pulse Ox 99 09/19/22 14:54 Oxygen Delivery Method Room Air 09/19/22 14:54 BMI result Body Mass Index 24.2 Tobacco/Smoking Status: Tobacco use Status Tobacco use date assessed 09/19/22 09/19/22 14:54 Patient Tobacco Use Status Current someday Tobacco 09/19/22 14:54 Tobacco use type Cigarette 09/19/22 14:54 e-Cigarette/Vaping Use Never Used 09/19/22 14:54 PHQ-9: PHQ-9 Score PHQ-9: Total score 1 09/19/22 14:59 Depression Screening Interpretation: Negative Thrive Assessment: Date of Thrive Assessment Date Thrive assessed 09/04/22 09/19/22 14:54 Const General: cooperative and no acute distress Orientation/consciousness: patient oriented x3 HENMT Head: Yes normocephalic and Yes atraumatic Ears: TM's normal bilaterally Face and sinus: Yes sinuses nontender Mouth: oropharynx normal and moist mucous membranes Throat: Yes posterior oropharynx normal Eyes General: appearance normal, both eyes and all related structures Pupils: Equal, round and reactive pupils present EOM: EOMs intact bilaterally Neck Neck: Yes normal visual inspection, Yes full ROM and Yes no lymphadenopathy Thyroid: Thyroid normal Resp Effort & Inspection: normal respiratory effort and able to speak in complete sentences Auscultation: clear to auscultation bilaterally, no crackles, no rales, no rhonchi and no wheezes Cardio Rate: regular rate Rhythm: regular rhythm Heart sounds: S1 normal heart sound present, S2 normal heart sound present and no murmurs GI Palpation (GI): Soft to palpation, not firm, nontender, no guarding, not rigid and no hepatosplenomegaly Auscultation: normal bowel sounds General: No CVA tenderness Back/Spine/Pelvis Back: No CVA tenderness Skin General skin exam: no rashes or lesions noted Neuro General: patient oriented x3 Cranial nerves: Yes Equal, round and reactive pupils present Gait exam (Neuro): Normal gait present Extrem General: Yes full ROM and No edema Immunizations Boostrix Tdap Performing Provider: NITZA Almanzar Administered by: ELVER Castro on 09/19/22 15:15 Dose Route Admin Location Lot Number Expiration Date NDC Core Analyst 0.5 mL IM Left Deltoid [id number] 11/21/24 [id number] Verastem VIS Given Date VIS Provided VIS Publication Date 09/19/22 Single Vaccine 20 Eligibility Eligibility Date Funding Source Not [facility] Eligible 09/19/22 Private Assessment and Plan Assessment & Plan (1) Adult general medical exam: Code(s): Z00.00 - Encounter for general adult medical examination without abnormal findings Plan: Repeat in 1 year (2) Mild asthma: Code(s): J45.909 - Unspecified asthma, uncomplicated Plan: Stable Provided patient with albuterol inhaler p.r.n. (3) Depression with anxiety: Code(s): F41.8 - Other specified anxiety disorders Plan: Continue to follow-up with psychiatry and therapist, continue current treatment as prescribed by Psychiatry Orders: Orders TSH reflex Free T4 Today Z00.00 - Encounter for general adult medical examination without abnormal findings TDaP Immunization Today Z23 - Encounter for immunization Medications: New albuterol sulfate 90 mcg/actuation (Ventolin HFA) 2 puffs inhalation Q4-6H PRN 8.5 grams 0RF shortness of breath or wheezing J45.909 - Unspecified asthma, uncomplicated Discontinued ketorolac Discontinued Reason: Patient no longer taking 10 mg PO TID 5 days PRN 15 tabs 0RF pain Coding Level of Care Code Est Pt Prev Care 40-64y(75219) Diagnoses Adult general medical exam Z00.00 Mild asthma J45.909 Depression with anxiety F41.8 Additional Codes HELDER-7 Assessment Billing - HELDER-7 Assessment Tool: HELDER-7 Assessment [id number] ([id number])
[2022-09-19 14:54] VITALS: BP 110/70; PULSE 66; O2SAT 99; BMI 24.2
== END 2022-09-19 15:19 | disposition home or self-care (01) ==
PROVIDERS: Visit Provider Nurse Practitioner Family
DX: Z00.00 Encounter for general adult medical examination without abnormal findings (principal); J45.909 Unspecified asthma, uncomplicated; F41.8 Other specified anxiety disorders; Z23 Encounter for immunization
CPT/HCPCS: 90471; 90715; 99396

== ENCOUNTER 2022-09-26 14:27 | Outpatient (REF) | payer OTHER, SELFPAY ==
--- NOTE | ~2022-09-26 | CT_ITS ---
EXAMINATION: CT ABDOMEN AND PELVIS WITHOUT AND WITH CONTRAST CLINICAL INFORMATION: Microscopic hematuria COMPARISON: 08/10/2022 TECHNIQUE: Multidetector volumetric imaging was performed of the abdomen and pelvis before and after the IV administration of 85 mL of Omnipaque 350 intravenous contrast. Sagittal and coronal reformatted images were obtained on the technologist's workstation. This CT examination was performed using dose optimization techniques as appropriate, variously including the following: *Automated exposure control *Adjustment of mA and/or kV according to patient size (this includes techniques or standardized protocols for targeted exams where dose is matched to indication/reason for exam; i.e. extremities or head) *Use of iterative reconstruction technique DLP: 858 mGy-cm FINDINGS: LUNG BASES: The visualized lung bases are unremarkable. LIVER, GALLBLADDER, AND BILIARY TREE: The liver is normal in size, shape, and attenuation. No focal hepatic lesion or biliary ductal dilatation is present. Gallbladder is surgically absent. PANCREAS: Unremarkable SPLEEN: Unremarkable ADRENAL GLANDS: Unremarkable KIDNEYS AND URETERS: The kidneys are normal in size, shape, and attenuation. No hydronephrosis, hydroureter, or calculi seen. No perinephric stranding. BLADDER: Unremarkable GASTROINTESTINAL TRACT: The small and large bowel are unremarkable. The appendix is unremarkable. ABDOMINAL WALL: No significant hernia is appreciated. LYMPH NODES: Normal VASCULAR: Unremarkable PELVIC VISCERA: Unremarkable OSSEOUS STRUCTURES: Unremarkable CT/CT abdomen pelvis wo/w IV con IMPRESSION: No explanation for hematuria. Status post cholecystectomy. Fleischner guidelines were followed.
[2022-09-26] MEDS: iohexoL 350 MG/ML 100 ML INFUS..BTL IV (16:54)
== END 2022-09-26 14:28 | disposition home or self-care (01) ==
LOC: HO.CT 14:27
PROVIDERS: Visit Provider Obstetrics & Gynecology
DX: R31.29 Other microscopic hematuria (principal)
CPT/HCPCS: 74178; Q9967

== ENCOUNTER 2022-09-27 13:21 | Outpatient (REF) | payer OTHER, SELFPAY ==
--- NOTE | ~2022-09-27 | MM_ITS ---
EXAMINATION: MM SCREENING DIGITAL BREAST TOMOSYNTHESIS, BILATERAL CLINICAL INFORMATION: Screening. Asymptomatic. COMPARISON: Mammography: This study is compared with prior exams dating back to 2019. TECHNIQUE: Digital breast tomosynthesis is performed in both the craniocaudal and mediolateral oblique views along with computer-aided detection (CAD). Synthesized 2D images are generated from the tomosynthesis. FINDINGS: The breasts are heterogeneously dense, which may obscure small masses (ACR BI-RADS breast composition Category c). There are no significant masses, abnormal calcifications, or other abnormalities. There are unchanged, benign calcifications in the right breast. MM/MM tomosynthesis screening BI IMPRESSION: No mammographic evidence of malignancy. ASSESSMENT: BI-RADS BI-RADS 2 - Benign Findings RECOMMENDATION: Routine annual mammography screening. 1 year F/U This examination should not preclude the clinical evaluation of a suspicious palpable abnormality. This patient's information was entered into a reminder system with a target due date for their next mammogram.
== END 2022-09-27 13:22 | disposition home or self-care (01) ==
LOC: HO.MAMMO 13:21
PROVIDERS: PCP Internal Medicine; Referring Provider Obstetrics & Gynecology; Visit Provider Internal Medicine
DX: Z12.31 Encounter for screening mammogram for malignant neoplasm of breast (principal)
CPT/HCPCS: 77063; 77067

== ENCOUNTER → 2022-09-27 13:45 | Outpatient (BNV) | payer OTHER, SELFPAY | PROVIDERS: PCP Internal Medicine; Referring Provider Obstetrics & Gynecology; Visit Provider Radiology Diagnostic Radiology | DX: Z12.31 Encounter for screening mammogram for malignant neoplasm of breast (principal) | CPT/HCPCS: 77063; 77067 ==

== ENCOUNTER → 2022-10-10 13:41 | Outpatient (BNVA) | payer OTHER, SELFPAY | PROVIDERS: PCP Internal Medicine; Visit Provider Physician Assistant ==

== ENCOUNTER 2022-10-22 08:05 | Outpatient (AMB) | payer OTHER, SELFPAY ==
[2022-10-22 08:08] VITALS: BP 118/70; BMI 23.8
--- NOTE | 2022-10-22 08:08 | A.OFFVIS_ITS ---
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 CT scan showed the following: IMPRESSION: No explanation for hematuria. Status post cholecystectomy. Fleischner guidelines were followed. Urology referral was placed [facility] Medical History Encounter for physical examination Chronic fatigue Mild asthma Muscle spasm Cervical radiculopathy Insomnia Depression with anxiety Surgical History History of cholecystectomy History of tubal ligation History of section Family History Father Hypertension Diabetes Mother Hypertension Depression H/O: pituitary tumor Mental health disorder Son Hypoplastic anemia Sister History of kidney cancer Maternal Grandmother Cancer Social History Housing: Apartment Alcohol intake: current Alcohol intake frequency: holidays/special occasions only Alcohol type: beer and wine Patient Tobacco Use Status: Current someday Tobacco user Tobacco use type: Cigarette Cigarettes Per Day: 3 e-Cigarette/Vaping Use: Never Used Second Hand Smoke Exposure: Yes Substance Use Type: Marijuana service: No Current occupational status: disabled Cognitive needs: Yes (Cane) Hearing needs: No Vision needs: Yes (Glasses) Female Reproductive History Menstrual Age of Menarche: 11 Date of last menstrual period: 10/04/22 Review of Systems Const All systems reviewed & are unremarkable except as noted in HPI and below Reports as per HPI and Reports no additional complaints GI Reports no additional complaints Reports no additional complaints Physical Exam Vital Signs: Last Vital Signs BP 118/70 10/22/22 08:08 BMI result Body Mass Index 23.8 Assessment & Plan Assessment & Plan (1) Microscopic hematuria: Code(s): R31.29 - Other microscopic hematuria Plan: Discussed with the patient the results of CT scan, recommended follow-up with Urology, appointment scheduled today at 11:00. All questions answered, the patient verbalized understanding Coding Level of Care Code Est Pt Level 3 (89317) Diagnoses Microscopic hematuria R31.29
== END 2022-10-22 08:57 | disposition home or self-care (01) ==
PROVIDERS: PCP Internal Medicine; Visit Provider Obstetrics & Gynecology
DX: R31.29 Other microscopic hematuria (principal)
CPT/HCPCS: 99213

== ENCOUNTER 2022-10-22 08:05 | Outpatient (REF) | payer OTHER, SELFPAY ==
[2022-10-22 16:48] LABS: Urine Cytology See Pathology rpt
== END 2022-10-22 08:06 | disposition home or self-care (01) ==
LOC: HO.LAB 08:05
PROVIDERS: Urology; PCP Internal Medicine; Visit Provider Obstetrics & Gynecology
DX: R31.29 Other microscopic hematuria (principal); N39.0 Urinary tract infection, site not specified; Z80.51 Family history of malignant neoplasm of kidney; Z79.899 Other long term (current) drug therapy
CPT/HCPCS: 81003; 87086; 87088; 87186; 88112; 99202; 99212

== ENCOUNTER 2022-10-22 10:01 | Outpatient (AMB) | payer OTHER, SELFPAY ==
--- NOTE | 2022-10-22 10:04 | A.OFFVIS_ITS ---
Intake Intake Visit Reasons: microscopic hematuria Intake Note: NEW Patient presents today to established treatment for Microscopic Hematuria: Meds- None Allergies to Antibiotic- No Known Allergies Blood Thinner- None Screen Machine Operator Required: Yes Screen Machine Operator Language: Legal Document Assistant Name: Ritesh Henderson Information Interpreted: non-clinical & clinical Accompanied by: Self / Same As Patient Allergies eggplant [EGGPLANT] Allergy (Severe, Verified 10/22/22 10:31) THROAT CLOSING sertraline Allergy (Severe, Verified 10/22/22 10:31) Nausea and Vomiting Medication List - Last Reconciled 10/22/22 by Radha Mitchell MD albuterol sulfate 90 mcg/actuation (Ventolin HFA) 2 puffs inhalation Q4-6H PRN bisacodyl (Dulcolax (bisacodyl)) 20 mg (4 x 5 mg) PO ONCE 1 day cholecalciferol (vitamin D3) 25 mcg PO DAILY 90 days gabapentin 400 mg PO TID melatonin 500f10 mg PO BEDTIME PRN mirtazapine 15 mg PO BEDTIME polyethylene glycol 3350 (Miralax) 238 grams PO ONCE 1 day risperidone 0.5 mg PO BEDTIME sulfamethoxazole-trimethoprim 800-160 mg (Bactrim DS) 1 tab PO BID tizanidine 2 mg PO BID PRN HPI HPI Comments History of Present Illness Details Britta is a 47-year-old female who presents today to the office to establish as a new patient for an evaluation of microscopic hematuria. 10/22/2022? She presents today for an evaluation of microscopic hematuria. The patient is a Cymro speaking female. Certified food handler was present during the visit. She was referred to the urology office by her OB-MIXING ENGINEER. She was also seen in ER on 08/08/2022 for right back pain. She states that she was not treated with any antibiotics in ER. She states that her county coroner has prescribed antibiotics for her urinary tract infections. She was referred to the pain management by her PCP due to pain on her right back and right lower leg. She is having frequent urination and has burning with urination. She states that her father and sister had kidney cancer. Her sister had kidney cancer diagnosed when she was 6 yrs old and is sp nephrectomy, and her father is . I reviewed the abdomen/pelvis CT results from 09/26/2022 revealed?normal kidneys, no hydronephrosis of the right kidney. I reviewed the urine culture results from 08/08/2022 revealed Escherichia coli > 100,000 cfu/mL Evaluation today?UA? leukocytes: 2 +; blood: 1 +. Plan: Will send for urine for culture and cytology. Bactrim DS BID for 7 days. Follow up office Cystoscopy [facility] Medical History Encounter for physical examination Chronic fatigue Mild asthma Muscle spasm Cervical radiculopathy Insomnia Depression with anxiety Surgical History History of cholecystectomy History of tubal ligation History of section Family History Father Hypertension Diabetes Mother Hypertension Depression H/O: pituitary tumor Mental health disorder Son Hypoplastic anemia Sister History of kidney cancer Maternal Grandmother Cancer Social History Housing: Apartment Alcohol intake: current Alcohol intake frequency: holidays/special occasions only Alcohol type: beer and wine Patient Tobacco Use Status: Current someday Tobacco user Tobacco use type: Cigarette Cigarettes Per Day: 3 e-Cigarette/Vaping Use: Never Used Second Hand Smoke Exposure: Yes Substance Use Type: Marijuana service: No Current occupational status: disabled Cognitive needs: Yes (Cane) Hearing needs: No Vision needs: Yes (Glasses) Female Reproductive History Menstrual Age of Menarche: 11 Review of Systems Const All systems reviewed & are unremarkable except as noted in HPI and below Reports no additional complaints Eyes Reports no additional complaints ENT Reports no additional complaints Card Denies dyspnea Resp Denies cough and Denies dyspnea GI Reports no additional complaints Reports no additional complaints Musc Reports no additional complaints Skin/Breast Denies rash and Denies unusual bruising Neuro Reports no additional complaints Psych Reports no additional complaints Endo Reports no additional complaints Tu/Lymph Reports no additional complaints Aller/Immun Reports no additional complaints Physical Exam Const General: cooperative, healthy appearing and no acute distress Orientation/consciousness: patient oriented x3 HEENT Head: Yes normal to inspection, Yes normocephalic and Yes atraumatic Eyes Conjunctivae: conjunctivae normal Neck Neck: Yes normal visual inspection and Yes trachea midline Chest Chest palpation & inspection: normal inspection of the chest Resp Effort & Inspection: normal respiratory effort Cardio Rate: regular rate GI Inspection: Yes normal to inspection Skin General skin exam: no rashes or lesions noted Neuro General: patient oriented x3 Extrem General: No edema Psych Appearance: grossly normal Results AMB Urinalysis, Automated UA Leukoctes 125 Francesca/uL Last Edit by Fred Henderson [facility] on 10/22/22 10:36 2+ Fred Henderson 10/22/22 10:36 UA Nitrite Negative Last Edit by Fred Henderson [facility] on 10/22/22 10:36 UA Urobilinogen 0.2 mg/dL Last Edit by Fred Henderson [facility] on 10/22/22 10:3 6 UA Protein 0 mg/dL Last Edit by Fred Henderson [facility] on 10/22/22 10:36 UA pH 6.0 Last Edit by Fred Henderson [facility] on 10/22/22 10:36 UA Blood 25 Garth/uL Last Edit by Fred Henderson [facility] on 10/22/22 10:36 1+ Fred Henderson 10/22/22 10:36 UA Specific Rougon 1.030 Last Edit by Fred Henderson [facility] on 10/22/22 10: 36 UA Ketone Negative Last Edit by Fred Henderson [facility] on 10/22/22 10:36 UA Bilirubin 1 mg/dL Last Edit by Fred Henderson [facility] on 10/22/22 10:36 1+ Fred Henderson 10/22/22 10:36 UA Glucose 0 mg/dL Last Edit by Fred Henderson [facility] on 10/22/22 10:36 Results Reviewed Results Reviewed: Laboratory Last Values Urine pH (Auto) 6.0 10/22/22 10:34 Specific Rougon (Auto) 1.030 10/22/22 10:34 Urine Protein (Auto) 0 mg/dL 10/22/22 10:34 Glucose (UA)(Auto) 0 mg/dL 10/22/22 10:34 Urine Ketones (Auto) Negative 10/22/22 10:34 Urine Blood (Auto) 25 Garth/uL 10/22/22 10:34 Urine Nitrite (Auto) Negative 10/22/22 10:34 Urine Bilirubin (Auto) 1 mg/dL 10/22/22 10:34 Urine Urobilinogen (Auto) 0.2 mg/dL 10/22/22 10:34 Leukocyte Esterase (Auto) 125 Francesca/uL 10/22/22 10:34 Date of Service: 09/26/22 EXAMINATION: CT ABDOMEN AND PELVIS WITHOUT AND WITH CONTRAST CLINICAL INFORMATION: Microscopic hematuria COMPARISON: 08/10/2022 FINDINGS: LUNG BASES: The visualized lung bases are unremarkable. LIVER, GALLBLADDER, AND BILIARY TREE: The liver is normal in size, shape, and attenuation. No focal hepatic lesion or biliary ductal dilatation is present. Gallbladder is surgically absent. PANCREAS: Unremarkable SPLEEN: Unremarkable ADRENAL GLANDS: Unremarkable KIDNEYS AND URETERS: The kidneys are normal in size, shape, and attenuation. No hydronephrosis, hydroureter, or calculi seen. No perinephric stranding. BLADDER: Unremarkable GASTROINTESTINAL TRACT: The small and large bowel are unremarkable. The appendix is unremarkable. ABDOMINAL WALL: No significant hernia is appreciated. LYMPH NODES: Normal VASCULAR: Unremarkable PELVIC VISCERA: Unremarkable OSSEOUS STRUCTURES: Unremarkable IMPRESSION: No explanation for hematuria. Status post cholecystectomy. Ordered: Urine Culture Procedure Result Verified Site Urine Culture Final 08/11/22 Organism 1 Escherichia coli Quant > 100,000 cfu/mL E coli M.I.C. RX --------- --- Ampicillin 4 S Ceftriaxone <=0.25 S Gentamicin <=1 S Levofloxacin <=0.12 S Nitrofurantoin <=16 S Trimethoprim/Sulfamethoxazole <=20 S Assessment & Plan Assessment & Plan (1) Microscopic hematuria: Code(s): R31.29 - Other microscopic hematuria (2) Recurrent UTI: Code(s): N39.0 - Urinary tract infection, site not specified Plan Will send for urine for culture and cytology Bactrim DS BID for 7 days. Follow up office Cystoscopy in 4-5 weeks. Orders: Orders AMB Urinalysis Automated Today Z13.9 - Encounter for screening, unspecified Medications: New sulfamethoxazole-trimethoprim 800-160 mg (Bactrim DS) 1 tab PO BID 14 tabs 0RF Patient Instructions: The patient had an opportunity to ask questions regarding treatment plan. All questions were answered. Imaging, Laboratory studies and physical exam results were discussed and reviewed in detail. No major barriers to understanding were identified. The patient expressed understanding and agreement with the above t reatment plan.? ? ? The patient is aware they should contact our office by phone for worsening of their current condition or the appearance of new symptoms. Compliance is encouraged with any medications and followup testing that is ordered.? ? ? It is a privilege to be allowed the opportunity to participate in the urologic care of your patient. If you have any questions or concerns regarding treatment for the above conditions please do not hesitate to contact me. The office telephone contact is [phone].? ? ? This note is constructed in part using voice recognition software. While every effort has been made to ensure accuracy annealer helper errors may have been included.? ? ? Yours sincerely,? ? ? Radha Mitchell MD? Coding Level of Care Code New Pt Level 4 (54784) Diagnoses Microscopic hematuria R31.29 Recurrent UTI N39.0
== END 2022-10-22 11:06 | disposition home or self-care (01) ==
PROVIDERS: PCP Internal Medicine; Visit Provider Urology
DX: R31.29 Other microscopic hematuria (principal); N39.0 Urinary tract infection, site not specified; Z13.9 Encounter for screening, unspecified
CPT/HCPCS: 99204

== ENCOUNTER 2022-12-12 07:31 | Outpatient (REF) | payer OTHER, SELFPAY ==
--- NOTE | ~2022-12-12 | MR_ITS ---
EXAMINATION: MR LUMBAR SPINE WITHOUT CONTRAST CLINICAL INFORMATION: Radiculopathy, lumbar region. COMPARISON: CT scan of the abdomen and pelvis 09/26/2022. Plain films of the lumbar spine 09/11/2022. TECHNIQUE: MRI of the lumbar spine was obtained using routine sequences without contrast. FINDINGS: VERTEBRAL BODIES AND PARASPINAL STRUCTURES: There is a transitional vertebra at the lumbosacral junction with partial lumbarization of S1. There is a rudimentary disc at S1-S2. These findings should be correlated with the plain films and CT scan before any intervention is undertaken. There is a mild retrolisthesis of L5 on S1. There is loss of intervertebral disc signal at L4-L5 and L5-S1, consistent with disc desiccation. Intervertebral disc heights are maintained. The vertebral bodies have normal height and contour, and no fractures are demonstrated. There are small Schmorl's nodes in the mid and upper lumbar spine. Overall, marrow signal is homogenous. There are bilateral extrarenal pelves. The visualized pelvic structures are unremarkable. CONUS MEDULLARIS AND CAUDA EQUINA: Normal, terminating at the level of L1. The lower thoracic spinal cord appears normal. The cauda equina nerve roots and filum terminale appear normal. SPINAL LEVELS: T12-L1: There is mild left facet arthropathy. Posterior disc contour is normal and there is no central stenosis. The neural foramina are patent bilaterally. L1-L2: The facet joints appear normal bilaterally. Disc contour is normal. There is no central stenosis or foraminal narrowing. L2-L3: There is mild bilateral facet arthropathy. Disc contour is normal. There is no central stenosis or foraminal narrowing. L3-L4: There is mild bilateral facet arthropathy. Disc contour is normal. There is no central stenosis or foraminal narrowing. L4-L5: There is moderate bilateral facet arthropathy with ligamenta flava hypertrophy. There is a left foraminal disc protrusion with an annular fissure without definite impingement on the exiting left L4 nerve root. There is no central stenosis. L5-S1: There is mild bilateral facet arthropathy. There is a posterior disc protrusion with an annular fissure which is most prominent centrally and to the right of midline. There is minimal mass effect on the thecal sac and there is no central stenosis. There may be mild impingement on the traversing right S1 nerve root. There is a right inferior foraminal disc protrusion without exiting nerve root impingement. MR/MR lumbar spine wo con IMPRESSION: 1. There is a transitional vertebra at the lumbosacral junction with partial lumbarization of S1. This should be correlated with the plain films and CT scan before any intervention is undertaken. 2. At L5-S1 there is a posterior disc protrusion with an annular fissure, most prominent centrally and to the right of midline. There is no central stenosis. There may be mild impingement on the traversing right S1 nerve root. There is a right inferior foraminal disc protrusion without exiting nerve root impingement. 3. At L4-L5 there is moderate facet arthropathy. There is a left foraminal disc protrusion without definite impingement on the exiting left L4 nerve root. There is no central stenosis.
== END 2022-12-12 07:32 | disposition home or self-care (01) ==
LOC: HO.MRI 07:31
PROVIDERS: PCP Internal Medicine; Visit Provider Registered Nurse Emergency
DX: M54.16 Radiculopathy, lumbar region (principal); G62.9 Polyneuropathy, unspecified
CPT/HCPCS: 72148

== ENCOUNTER 2023-03-12 10:39 | Day surgery (SDC) | payer OTHER, SELFPAY ==
[2023-03-12 11:40] VITALS: BMI 27.2
[2023-03-12 12:04] VITALS: BP 108/71; PULSE 60; RESP 16; TEMP 36.4; O2SAT 100
[2023-03-12] MEDS: Lactated Ringers 1,000 ML 80 ML IVCONT (12:06)
--- NOTE | 2023-03-12 12:16 | MHC.SHP ---
Pre-Procedural Eval Section A - 24 Hr Update-Section A only Date of Service: 03/12/23 Section B - Complete if H&P > 30 days Chief Complaint: Encounter for screening for malignant neoplasm of Relevant Family History (Specify if Yes): No Relevant Social History: Tobacco Use Present Medications: see Short Stay Collaborative assessment Medical History: Significant History (Cervical radiculopathy Chronic fatigue Depression with anxiety Encounter for physical examination Insomnia Mild asthma Muscle spasm) History of Previous Operations: Relevant previous surgery/procedure and date(s) (History of section History of cholecystectomy History of tubal ligation) Allergies: Allergies Allergy/AdvReac Type Severity Reaction Status Date / Time eggplant [EGGPLANT] Allergy Severe THROAT Verified 03/12/23 11:46 CLOSING sertraline Allergy Severe Nausea and Verified 03/12/23 11:46 Vomiting Review of Systems Sugical H&P ROS: Negative: Constitution, Cardiovascular, Respiratory, Neurological, Psychiatric, Hem-Onc, Allergic/Immunologic, Gastrointestinal, Genitourinary, Musculoskeletal, Integumentary, Endocrine and Eyes/Ears/Nose/Throat Exam Surgical H&P Exam: Normal: HEENT, Normal: Heart, Normal: Lungs, Normal: Extremities, Normal: Abdomen, Normal: Skin and Normal: Neurological Plan Diagnosis/Plan: Unchanged I have reviewed the history and physical and performed a pertinent physical examination on my patient. No changes have occurred unless specified. Time Spent With Patient Time: Total time managing care of this patient today ____ minutes.
--- NOTE | 2023-03-12 12:52 | P.OP_ITS ---
Operative Note Operative Note Date of Service: 03/12/23 Narrative: Operative Information Procedure Description: Colonoscopy Indication: screening Anesthesia: MAC COLONOSCOPY Instrument: Olympus variable stiffness pediatric scope 190L Colonoscopy Monitoring: Vital signs and clinical assessment, continuous EKG monitoring, Pulse oximetry, Carbon Dioxide monitoring and blood pressure monitoring were done throughout the procedure. Colon withdrawal time was 12 minutes. Procedure: The patient was placed in the left lateral decubitis position and pre-procedure medications were administered. After a digital rectal examination of the ano-rectum, the video colonoscope was inserted into the rectum and advanced through the colon to the cecum/TI. The colonoscope was slowly withdrawn in a retrograde panoramic fashion and the colon mucosa was carefully examined including a retroflexed view of the rectum. Findings and interventions are described below. Procedure Difficulty: easy Findings: Terminal Ileum-normal Cecum: 4-5 mm sessile polyp removed with cold forceps Ascending Colon: normal Transverse Colon -normal Descending Colon:normal Sigmoid Colon: normal Rectum: Retroflexion with small internal hemorrhoids, grade I Anorectum - normal Colon preparation: [place] Bowel Preparation Scale Right colon; 2 Transverse colon: 2 Left colon; 1-2 (0 = Unprepared colon segment with mucosa not seen due to solid stool that cannot be cleared. 1 = Portion of mucosa of the colon segment seen, but other areas of the colon segment not well seen due to staining, residual stool and/or opaque liquid. 2 = Minor amount of residual staining, small fragments of stool and/or opaque liquid, but mucosa of colon segment seen well. 3 = Entire mucosa of colon segment seen well with no residual staining, small fragments of stool or opaque liquid) Impression and Post Procedure Diagnosis: polyp internal hemorrhoids Plan: High fiber diet leaflet Avoid straining at stool, epsom salts and sitz bath, anusol supps or cream Repeat Colonoscopy in 5 years due to fair left sided prep or earlier if clinically indicated Above findings were reviewed with the patient and relevant handouts were provided if indicated.
--- NOTE | 2023-03-12 12:55 | P.CONAN_ITS ---
HPI - Anesthesia Eval Consult details Narrative: colonoscopy ON LICENSE OF [facility] Active Problems Active Problems: All Active Problems (Updated 10/22/22 @ 11:10 by Radha Mitchell MD) Recurrent UTI (Acute) Encounter for screening colonoscopy (Acute) Adult general medical exam (Acute) Hypovitaminosis D (Acute) Neuropathy (Acute) Lumbar radiculopathy (Acute) Right sided sciatica (Acute) Right hip pain (Acute) Lumbar pain (Acute) Uterine myoma (Acute) Well woman exam (Acute) Chlamydia (Acute) Microscopic hematuria (Acute) Pelvic pain (Acute) Encounter for physical examination (Acute) Sinusitis, acute (Acute) Chronic fatigue (Acute) Mild asthma (Acute) Muscle spasm (Acute) Cervical radiculopathy (Acute) Insomnia (Acute) Depression with anxiety (Acute) Past Medical History Medical History Encounter for physical examination Chronic fatigue Mild asthma Muscle spasm Cervical radiculopathy Insomnia Depression with anxiety Family History Family History Father Hypertension Diabetes Mother Hypertension Depression H/O: pituitary tumor Mental health disorder Son Hypoplastic anemia Sister History of kidney cancer Maternal Grandmother Cancer Family history of problems with anesthesia: No Surgical History Surgical History History of cholecystectomy History of tubal ligation History of section History of Problems with Anesthesia: No Social History Social History Housing: Apartment Alcohol intake: current Alcohol intake frequency: holidays/special occasions only Alcohol type: beer and wine Patient Tobacco Use Status: Current someday Tobacco user Tobacco use type: Cigarette Cigarettes Per Day: 3 e-Cigarette/Vaping Use: Never Used Second Hand Smoke Exposure: Yes Use of substances other than those prescribed or required for medical reasons: Yes Substance Use Type: Marijuana Substance Use Frequency: Daily Are you DNR?: No Advance Directives: No Advance Directives Information Provided: Yes service: No Current occupational status: disabled Cognitive needs: Yes (Cane) Hearing needs: No Vision needs: Yes (Glasses) Meds Allergies Allergy/AdvReac Type Severity Reaction Status Date / Time eggplant [EGGPLANT] Allergy Severe THROAT Verified 03/12/23 11:46 CLOSING sertraline Allergy Severe Nausea and Verified 03/12/23 11:46 Vomiting Active Medications: Current Medications Lactated Ringer's (Lr) 1,000 mls @ 80 mls/hr IVCONT .[id number] IKER Last Admin: 03/12/23 12:06 Dose: 80 mls/hr Home Medications Medication Instructions Recorded Confirmed Last Taken Type gabapentin 400 mg capsule 400 mg PO TID 03/16/20 10/22/22 Unknown History melatonin 5 mg tablet 500f10 mg PO BEDTIME PRN insomnia 03/16/20 10/22/22 Unknown History mirtazapine 15 mg tablet 15 mg PO BEDTIME 03/16/20 10/22/22 Unknown History risperidone 0.5 mg tablet 0.5 mg PO BEDTIME 03/16/20 10/22/22 Unknown History Exam Height,Weight and Vital Signs: Height 5 ft 2 in Weight 67.358 kg Last Vital Signs Temp 97.5 F 03/12/23 12:04 Pulse 60 03/12/23 12:04 Resp 16 03/12/23 12:04 BP 108/71 03/12/23 12:04 Pulse Ox 100 03/12/23 12:04 O2 Del Method Room Air 03/12/23 12:04 Airway Mallampati Class: II TM Dist: >3cm Neck ROM: Full Heart: rrr Lungs: cta Assessment and Plan Assessment Anesthesia Assessment: Anesthesia Plan Discussed and Chart Reviewed Final Anesthetic Review Family History of Problems with Anesthesia: No History of Problems with Anesthesia: No NPO: Yes ASA Class: II Final Preanesthetic Review: No Changes in Pt Med Stat, Meds/Allgs Chart Reviewed, Consent Obtained/Reviewed and Anes Risks/Benef Reviewed Patient Risk: Low Procedure Risk: Low Anesthetic Plan Anesthetic Plan: MAC: Disposition: Standard PACU
[2023-03-12 13:38] VITALS: BP 113/72; PULSE 76; RESP 11; TEMP 36.2; O2SAT 100
[2023-03-12 13:53] VITALS: BP 129/76; PULSE 78; RESP 16; TEMP 37.3; O2SAT 100
== END 2023-03-12 14:19 | disposition home or self-care (01) ==
PROVIDERS: PCP Internal Medicine; Visit Provider Internal Medicine Gastroenterology
PROC: 0DJD8ZZ Inspection of Lower Intestinal Tract, Via Natural or Artificial Opening Endoscopic (ICD-10-PCS; CPT 45378; principal; 2023-03-12 13:20)
DX: Z12.11 Encounter for screening for malignant neoplasm of colon (principal); D12.0 Benign neoplasm of cecum; K64.0 First degree hemorrhoids; J45.909 Unspecified asthma, uncomplicated; M62.838 Other muscle spasm; R53.82 Chronic fatigue, unspecified; F41.8 Other specified anxiety disorders; Z79.899 Other long term (current) drug therapy; Z88.8 Allergy status to other drugs, medicaments and biological substances; F17.210 Nicotine dependence, cigarettes, uncomplicated; F12.90 Cannabis use, unspecified, uncomplicated
CPT/HCPCS: 45380; 88305; J2704

== ENCOUNTER → 2023-03-12 10:39 | Outpatient (BNV) | payer OTHER, SELFPAY | PROVIDERS: PCP Internal Medicine; Visit Provider Internal Medicine Gastroenterology | DX: Z12.11 Encounter for screening for malignant neoplasm of colon (principal); D12.0 Benign neoplasm of cecum; K64.0 First degree hemorrhoids | CPT/HCPCS: 45380 ==

== ENCOUNTER 2023-03-18 13:39 | Outpatient (AMB) | payer OTHER, SELFPAY ==
--- NOTE | 2023-03-18 14:30 | MHC.OFFVIS ---
Intake Intake Visit Reasons: cysto Intake Note: Patient presents today for Cystoscopy Meds: None Allergies to Antibiotic: No Known Allergies Blood Thinner: None Disposable Uro-G Cystoscope Cannula: Lot: [id number] Exp: 06/24/2024 Page Makeup System Operator Required: Yes Accompanied by: Self / Same As Patient Allergies eggplant [EGGPLANT] Allergy (Severe, Verified 03/18/23 14:39) THROAT CLOSING sertraline Allergy (Severe, Verified 03/18/23 14:39) Nausea and Vomiting Medication List - Last Reconciled 03/18/23 by Radha Mitchell MD albuterol sulfate 90 mcg/actuation (Ventolin HFA) 2 puffs inhalation Q4-6H PRN bisacodyl (Dulcolax (bisacodyl)) 20 mg (4 x 5 mg) PO ONCE 1 day cholecalciferol (vitamin D3) 25 mcg PO DAILY 90 days gabapentin 400 mg PO TID levofloxacin 500 mg PO DAILY 10 days melatonin 500f10 mg PO BEDTIME PRN mirtazapine 15 mg PO BEDTIME polyethylene glycol 3350 (Miralax) 238 grams PO ONCE 1 day risperidone 0.5 mg PO BEDTIME tizanidine 2 mg PO BID PRN HPI HPI Comments History of Present Illness Details 03/18/23--Britta is a 47-year-old female who presents today office cystoscopy. She has had recurrent UTI's. The patient is a Eritrean speaking female. Certified transmission repairer was present during the visit. She was initially referred to the urology office by her OB-FIELD SAMPLING TECHNICIAN for microscopic hematuria. She states that her television news photographer has prescribed antibiotics for her urinary tract infections. She is having frequent urination and has burning with urination. FH--father and sister had kidney cancer. Her sister had kidney cancer diagnosed when she was 6 yrs old and is sp nephrectomy, and her father is . I reviewed last urine c/s - 10/24/2022-- Ecoli - the patient was treated with Bactrim. 03/18/23--Office cystoscopy - Cystoscopy findings: bullous changes consistent wth cystitis, no suspicious bladder lesions visualized Review of chart: I reviewed the abdomen/pelvis CT results from 09/26/2022 revealed?normal kidneys, no hydronephrosis of the right kidney. I reviewed the urine culture results from 08/08/2022 revealed Escherichia coli > 100,000 cfu/mL Plan: Levaquin 500 mg daily for 10 days Antibiotic prophylaxis post sexual activity Follow up one month [facility] Medical History Encounter for physical examination Chronic fatigue Mild asthma Muscle spasm Cervical radiculopathy Insomnia Depression with anxiety Surgical History History of cholecystectomy History of tubal ligation History of section Family History Father Hypertension Diabetes Mother Hypertension Depression H/O: pituitary tumor Mental health disorder Son Hypoplastic anemia Sister History of kidney cancer Maternal Grandmother Cancer Social History Housing: Apartment Alcohol intake: current Alcohol intake frequency: holidays/special occasions only Alcohol type: beer and wine Patient Tobacco Use Status: Current someday Tobacco user Tobacco use type: Cigarette Cigarettes Per Day: 3 e-Cigarette/Vaping Use: Never Used Second Hand Smoke Exposure: Yes Substance Use Type: Marijuana service: No Current occupational status: disabled Cognitive needs: Yes (Cane) Hearing needs: No Vision needs: Yes (Glasses) Female Reproductive History Menstrual Age of Menarche: 11 Review of Systems Const All systems reviewed & are unremarkable except as noted in HPI and below Reports no additional complaints Eyes Reports no additional complaints ENT Reports no additional complaints Card Denies dyspnea Resp Denies cough and Denies dyspnea GI Reports no additional complaints Reports no additional complaints Musc Reports no additional complaints Skin/Breast Denies rash and Denies unusual bruising Neuro Reports no additional complaints Psych Reports no additional complaints Endo Reports no additional complaints Tu/Lymph Reports no additional complaints Aller/Immun Reports no additional complaints Office Procedures Cystoscopy Consent Discussed risk and benefit or proposed procedure with the patient. Information consent for procedure given to the patient. Discussed technical aspects, risks, benefits and alternatives in full. Addressed all of the patient's questions and concerns regarding the procedure. The patient demonstrated knowledge and understanding. They wish to proceed with this procedure. Preparation The patient was prepped in the usual manner. A building architectural designer was present and in the room. Genitalia was prepped with betadine solution in a sterile manner. Lidocaine Jelly 2% was placed into the urethra and 16Fr flexible Olympus cystoscope was inserted into the meatus after adequate lubrication. Procedure Time out per protocol performed. Bladder Inspection Bladder Inspection: The bladder was inspected in its entirety with utilization retroflexion displaying: Tumor(s): none visualized Trabeculation: N/A Mucosal Erthema: bullous changes c/w cystitis follicularis Orifices: normal shape and position Urethra: normal Cystoscopy findings: bullous changes consistent wth cystitis, no suspicious bladder lesions visualized [id number] DISPOSABLE SCOPE URO-G FLEXIBLE SCOPE Procedure code (CPT) selection complete Office Meds lidocaine HCl 2 % mucosal jelly in applicator Performing Provider: Radha Mitchell MD Performing Location: [facility] Administered by: Justus Salcedo LPN on 03/18/23 14:38 Dose Route Admin Location Dispensed Lot Number Expiration Date [facility] Integrity Engineer 10 mL intra-urethral 20 mL naproxen 500 mg tablet Performing Provider: Radha Mitchell MD Performing Location: [facility] Administered by: Justus Salcedo LPN on 03/18/23 14:38 Dose Route Admin Location Dispensed Lot Number Expiration Date [facility] Integrity Engineer 500 mg PO 1 tab ciprofloxacin HCl 500 mg tablet Performing Provider: Radha Mitchell MD Performing Location: [facility] Administered by: Justus Salcedo LPN on 03/18/23 14:38 Dose Route Admin Location Dispensed Lot Number Expiration Date [facility] Integrity Engineer 500 mg PO 1 tab Results AMB Urinalysis, Automated UA Leukoctes 0 Francesca/uL Last Edit by Jessica Rebolledo CMA on 03/18/23 14:48 UA Leukoctes previously reported as 15 [facility] Rebolledo 03/18/23 14:46 0 [facility] Rebolledo 03/18/23 14:48 UA Nitrite Positive Last Edit by Jessica Rebolledo CMA on 03/18/23 14:48 UA Nitrite previously reported as Negative [facility] Rebolledo 03/18/23 14:46 positive Jessicasindhu Rebolledo Rebol[place] 03/18/23 14:48 UA Urobilinogen 0.2 mg/dL Last Edit by Jessica Rebolledo CMA on 03/18/23 14:44 UA Protein 15 mg/dL Last Edit by Jessicasindhu Rebolledo [facility] on 03/18/23 14:44 UA pH 6.0 Last Edit by [facility], [facility] on 03/18/23 14:44 UA Blood 80 Garth/uL Last Edit by [facility] Rebolledo, [facility] on 03/18/23 14:44 UA Specific [place] 1.025 Last Edit by [facility], [facility] on 03/18/23 14:44 UA Ketone Negative Last Edit by [facility] Rebolledo, [facility] on 03/18/23 14:44 UA Bilirubin 0 mg/dL Last Edit by [facility] Rebolledo, [facility] on 03/18/23 14:44 UA Glucose 0 mg/dL Last Edit by [facility] Rebolledo, [facility] on 03/18/23 14:44 Results Reviewed Results Reviewed: Laboratory Last Values Urine pH (Auto) 6.0 03/18/23 14:42 Specific [place] (Auto) 1.025 03/18/23 14:42 Urine Protein (Auto) 15 mg/dL 03/18/23 14:42 Glucose (UA)(Auto) 0 mg/dL 03/18/23 14:42 Urine Ketones (Auto) Negative 03/18/23 14:42 Urine Blood (Auto) 80 Garth/uL 03/18/23 14:42 Urine Nitrite (Auto) Positive 03/18/23 14:42 Urine Bilirubin (Auto) 0 mg/dL 03/18/23 14:42 Urine Urobilinogen (Auto) 0.2 mg/dL 03/18/23 14:42 Leukocyte Esterase (Auto) 0 Francesca/uL 03/18/23 14:42 Collected: 10/22/22 Status: COMP Req#: [id number] Received: 10/22/22 Source: [facility] Sp Desc: Urine flores Subm Dr: Radha Mitchell MD Ordered: Urine Culture Procedure Result Verified Urine Culture Final 10/24/22 Organism 1 Escherichia coli Quant > 100,000 cfu/mL E coli M.I.C. RX --------- --- Ampicillin 4 S Ceftriaxone <=0.25 S Gentamicin <=1 S Levofloxacin <=0.12 S Nitrofurantoin <=16 S Trimethoprim/Sulfamethoxazole <=20 S Assessment & Plan Assessment & Plan (1) Microscopic hematuria: Code(s): R31.29 - Other microscopic hematuria (2) Recurrent UTI: Code(s): N39.0 - Urinary tract infection, site not specified (3) Cystitis: Code(s): N30.90 - Cystitis, unspecified without hematuria Plan Levaquin 500 mg daily for 10 days Antibiotic prophylaxis post sexual activity, Nitrofurantoin 50 mg prn Follow up one month Orders: Orders AMB Urinalysis Automated 03/18/23 R33.9 - Retention of urine, unspecified Urine Culture 03/18/23 N39.0 - Urinary tract infection, site not specified AMB Cystoscopy 03/18/23 N39.0 - Urinary tract infection, site not specified, R10.2 - Pelvic and perineal pain, R31.29 - Other microscopic hematuria Medications: New nitrofurantoin macrocrystal 50 mg orally use one capsule post sexual activity to reduce UTI episodes; must administer with a meal/food; 30 caps 1RF levofloxacin 500 mg PO DAILY 10 days 10 tabs 0RF Patient Instructions: The patient had an opportunity to ask questions regarding treatment plan. All questions were answered. Imaging, Laboratory studies and physical exam results were discussed and reviewed in detail. No major barriers to understanding were identified. The patient expressed understanding and agreement with the above treatment plan. The patient is aware they should contact our office by phone for worsening of their current condition or the appearance of new symptoms. Compliance is encouraged with any medications and followup testing that is ordered. It is a privilege to be allowed the opportunity to participate in the urologic care of your patient. If you have any questions or concerns regarding treatment for the above conditions please do not hesitate to contact me. The office telephone contact is [phone]. This note is constructed in part using voice recognition software. While every effort has been made to ensure accuracy margarine churn operator errors may have been included. Yours sincerely, Radha Mitchell MD Coding Level of Care Code Est Pt Level 3 (19357) Diagnoses Microscopic hematuria R31.29 Recurrent UTI N39.0 Cystitis N30.90 CPT Codes Cystoscopy - CPT: 97757-[id number] ([id number])
== END 2023-03-18 15:36 | disposition home or self-care (01) ==
PROVIDERS: PCP Internal Medicine; Visit Provider Urology
DX: N39.0 Urinary tract infection, site not specified (principal); R31.29 Other microscopic hematuria; R10.2 Pelvic and perineal pain; R33.9 Retention of urine, unspecified
CPT/HCPCS: 52000; 99213

== ENCOUNTER 2023-03-18 13:39 | Outpatient (REF) | payer OTHER, SELFPAY | END 2023-03-18 13:40 | disposition home or self-care (01) | LOC: HO.LAB 13:39 | PROVIDERS: PCP Internal Medicine; Visit Provider Urology | DX: N30.91 Cystitis, unspecified with hematuria (principal); R33.9 Retention of urine, unspecified; R31.29 Other microscopic hematuria; Z79.899 Other long term (current) drug therapy | CPT/HCPCS: 52000; 81003; 87086; 87088; 87186; 99212 ==

== ENCOUNTER 2023-04-18 08:31 | Outpatient (AMB) | payer OTHER, SELFPAY ==
--- NOTE | 2023-04-18 09:07 | A.OFFVIS_ITS ---
Intake Intake Visit Reasons: 1m follow up Intake Note: Patient presents today for a 1 month follow-up Meds: Cephalexin Allergies to Antibiotic: No Known Allergies Blood Thinner: None Recycling Crew Supervisor Required: Yes Accompanied by: Self / Same As Patient Allergies eggplant [EGGPLANT] Allergy (Severe, Verified 04/18/23 09:08) THROAT CLOSING sertraline Allergy (Severe, Verified 04/18/23 09:08) Nausea and Vomiting Medication List - Last Reconciled 04/18/23 by Radha Mitchell MD albuterol sulfate 90 mcg/actuation (Ventolin HFA) 2 puffs inhalation Q4-6H PRN bisacodyl (Dulcolax (bisacodyl)) 20 mg (4 x 5 mg) PO ONCE 1 day cephalexin 250 mg PO DAILY 30 days cholecalciferol (vitamin D3) 25 mcg PO DAILY 90 days gabapentin 400 mg PO TID melatonin 500f10 mg PO BEDTIME PRN mirtazapine 15 mg PO BEDTIME nitrofurantoin macrocrystal 50 mg orally use one capsule post sexual activity to reduce UTI episodes; must administer with a meal/food; polyethylene glycol 3350 (Miralax) 238 grams PO ONCE 1 day risperidone 0.5 mg PO BEDTIME solifenacin (Vesicare) 10 mg PO DAILY tizanidine 2 mg PO BID PRN HPI HPI Comments History of Present Illness Details 04/18/23--Britta is a 48-year-old female wh o is here for follow-up due to recurrent UTIs and pelvic pain. She was seen last on 03/18/2023-office cystoscopy noted cystitis and urine was sent for culture which came back E coli. She was treated with a 10 day course of Levaquin. I discussed use of nitrofurantoin 50 mg post intercourse. The patient states that she still has pelvic pain. Urinalysis 3+ blood. The patient today also raises concerns that she is afraid of cancer as her sister had kidney cancer. I have reviewed with her today prior CT scan from October 2022--kidneys were normal. I have reviewed with her prior urine cytology from October 2022 which was negative for malignant cells. I have discussed daily course of Keflex 250 mg daily and VESIcare 10 mg daily. Plan to follow-up in 3 months Review of chart: 03/18/23--Britta is a 47-year-old female wh o presents today office cystoscopy. She has had recurrent UTI's. The patient is a Danish speaking female. Certified senior counsel was present during the visit. She was initially referred to the urology office by her OB-NUTRITIONISTS for microscopic hematuria. She states that her fire control mechanic has prescribed antibiotics for her urinary tract infections. She is having frequent urination and has burning with urination. FH--father and sister had kidney cancer. Her sister had kidney cancer diagnosed when she was 6 yrs old and is sp nephrectomy, and her father is . I reviewed last urine c/s - 10/24/2022-- Ecoli - the patient was treated with Bactrim. 03/18/23--Office cystoscopy - Cystoscopy f indings: bullous changes consistent wth cystitis, no suspicious bladder lesions visualized Test reports: I reviewed the abdomen/pelvis CT results from 09/26/2022 revealed?normal k idneys, no hydronephrosis of the right kidney. I reviewed the urine culture results from 08/08/2022 revealed Escherichia coli > 100,000 cfu/mL 04/18/2023--PLAN: Antibiotic prophylaxis post sexual activity, nitrofurantoin 50 mg Keflex 250 mg daily VESIcare 10 mg daily Follow up 3 months [facility] Medical History Encounter for physical examination Chronic fatigue Mild asthma Muscle spasm Cervical radiculopathy Insomnia Depression with anxiety Surgical History History of cholecystectomy History of tubal ligation History of section Family History Father Hypertension Diabetes Mother Hypertension Depression H/O: pituitary tumor Mental health disorder Son Hypoplastic anemia Sister History of kidney cancer Maternal Grandmother Cancer Social History Housing: Apartment Alcohol intake: current Alcohol intake frequency: holidays/special occasions only Alcohol type: beer and wine Patient Tobacco Use Status: Current someday Tobacco user Tobacco use type: Cigarette Cigarettes Per Day: 3 e-Cigarette/Vaping Use: Never Used Second Hand Smoke Exposure: Yes Substance Use Type: Marijuana service: No Current occupational status: disabled Cognitive needs: Yes (Cane) Hearing needs: No Vision needs: Yes (Glasses) Female Reproductive History Menstrual Age of Menarche: 11 Review of Systems Const All systems reviewed & are unremarkable except as noted in HPI and below Reports no additional complaints Eyes Reports no additional complaints ENT Reports no additional complaints Card Denies dyspnea Resp Denies cough and Denies dyspnea GI Reports no additional complaints Reports no additional complaints Musc Reports no additional complaints Skin/Breast Denies rash and Denies unusual bruising Neuro Reports no additional complaints Psych Reports no additional complaints Endo Reports no additional complaints Tu/Lymph Reports no additional complaints Aller/Immun Reports no additional complaints Results AMB Urinalysis, Automated UA Leukoctes 0 Francesca/uL Last Edit by ELVER Laureano on 04/18/23 09:14 UA Nitrite Negative Last Edit by ELVER Laureano on 04/18/23 09:14 UA Urobilinogen 0.2 mg/dL Last Edit by ELVER Laureano on 04/18/23 09:1 4 UA Protein 0 mg/dL Last Edit by ELVER Laureano on 04/18/23 09:14 UA pH 6.0 Last Edit by ELVER Laureano on 04/18/23 09:14 UA Blood 200 Garth/uL Last Edit by ELVER Laureano on 04/18/23 09:14 3+ Fred Henderson 04/18/23 09:14 UA Specific [place] 1.020 Last Edit by ELVER Laureano on 04/18/23 09: 14 UA Ketone Negative Last Edit by ELVER Laureano on 04/18/23 09:14 UA Bilirubin 0 mg/dL Last Edit by ELVER Laureano on 04/18/23 09:14 UA Glucose 0 mg/dL Last Edit by ELVER Laureano on 04/18/23 09:14 Results Reviewed Results Reviewed: Laboratory Last Values Urine pH (Auto) 6.0 04/18/23 09:13 Specific [place] (Auto) 1.020 04/18/23 09:13 Urine Protein (Auto) 0 mg/dL 04/18/23 09:13 Glucose (UA)(Auto) 0 mg/dL 04/18/23 09:13 Urine Ketones (Auto) Negative 04/18/23 09:13 Urine Blood (Auto) 200 Garth/uL 04/18/23 09:13 Urine Nitrite (Auto) Negative 04/18/23 09:13 Urine Bilirubin (Auto) 0 mg/dL 04/18/23 09:13 Urine Urobilinogen (Auto) 0.2 mg/dL 04/18/23 09:13 Leukocyte Esterase (Auto) 0 Francesca/uL 04/18/23 09:13 Collected: 03/18/23 Status: COMP Req#: [id number] Received: 03/18/23 Source: [facility] Sp Desc: Subm Dr: Radha Mitchell MD Ordered: Urine Culture Procedure Result Verified Urine Culture Final 03/20/23 Organism 1 Escherichia coli Quant > 100,000 cfu/mL E coli M.I.C. RX --------- --- Ampicillin <=2 S Ceftriaxone <=0.25 S Gentamicin <=1 S Levofloxacin <=0.12 S Nitrofurantoin <=16 S Trimethoprim/Sulfamethoxazole <=20 S Assessment & Plan Assessment & Plan (1) Microscopic hematuria: Code(s): R31.29 - Other microscopic hematuria (2) Recurrent UTI: Code(s): N39.0 - Urinary tract infection, site not specified (3) Cystitis: Code(s): N30.90 - Cystitis, unspecified without hematuria (4) Pelvic pain: Code(s): R10.2 - Pelvic and perineal pain Plan Antibiotic prophylaxis post sexual activity, nitrofurantoin 50 mg Keflex 250 mg daily VESIcare 10 mg daily Follow up 3 months Orders: Orders AMB Urinalysis Automated Today Z13.9 - Encounter for screening, unspecified Medications: New cephalexin 250 mg PO DAILY 30 days 30 caps 5RF solifenacin (Vesicare) 10 mg PO DAILY 30 tabs 2RF Coding Level of Care Code Est Pt Level 4 (17852) Diagnoses Microscopic hematuria R31.29 Recurrent UTI N39.0 Cystitis N30.90 Pelvic pain R10.2
== END 2023-04-18 09:37 | disposition home or self-care (01) ==
PROVIDERS: PCP Internal Medicine; Visit Provider Nurse Practitioner Family
DX: R31.29 Other microscopic hematuria (principal); N39.0 Urinary tract infection, site not specified; N30.90 Cystitis, unspecified without hematuria; R10.2 Pelvic and perineal pain; Z13.9 Encounter for screening, unspecified
CPT/HCPCS: 99214

== ENCOUNTER → 2023-04-18 08:31 | Outpatient (BNVA) | payer OTHER, SELFPAY | PROVIDERS: PCP Internal Medicine; Visit Provider Nurse Practitioner Family | DX: R31.29 Other microscopic hematuria (principal); N39.0 Urinary tract infection, site not specified; R10.2 Pelvic and perineal pain | CPT/HCPCS: 81003; 99212 ==

== ENCOUNTER 2023-07-12 11:16 | Outpatient (REF) | payer OTHER, SELFPAY ==
[2023-07-13 10:44] LABS: Bacterial Vaginosis PCR POSITIVE (Negative); Candida Group PCR DETECTED (Not Detect); Candida glab krusei PCR NOT DETECTED (Not Detect); Trichomonas vaginalis PCR NOT DETECTED (Not Detect)
[2023-07-13 10:54] LABS: CT PCR NOT DETECTED (Not Detect.); NG PCR NOT DETECTED (Not Detect.)
== END 2023-07-12 11:17 | disposition home or self-care (01) ==
LOC: HO.LNP 11:16
PROVIDERS: PCP Internal Medicine; Visit Provider Advanced Practice Midwife
DX: R10.2 Pelvic and perineal pain (principal)
CPT/HCPCS: 0352U; 0353U; 99212

== ENCOUNTER 2023-07-12 11:16 | Outpatient (AMB) | payer OTHER, SELFPAY ==
[2023-07-12 11:27] VITALS: BP 112/70; BMI 25.8
--- NOTE | 2023-07-12 11:27 | MHC.OFFVIS ---
Vital Signs 07/12/23 11:27 Height 5 ft 2 in Weight 141 lb BMI 25.8 BP 112/70 Intake Visit Reasons: Ovarian Pain Intake Note: Having pain in her left ovary, she states she was told she had a small fibroid Industrial Garage Servicer Required: Yes Industrial Garage Servicer Language: Ivorian Information Interpreted: non-clinical & clinical Process Trainer: Process Trainer Present (Claribel) Allergies eggplant [EGGPLANT] Allergy (Severe, Verified 07/12/23 11:29) THROAT CLOSING sertraline Allergy (Severe, Verified 07/12/23 11:29) Nausea and Vomiting Medication List - Last Reconciled 07/12/23 by Celena Branham CNM albuterol sulfate 90 mcg/actuation (Ventolin HFA) 2 puffs inhalation Q4-6H PRN bisacodyl (Dulcolax (bisacodyl)) 20 mg (4 x 5 mg) PO ONCE 1 day cephalexin 250 mg PO DAILY 30 days cholecalciferol (vitamin D3) 25 mcg PO DAILY 90 days gabapentin 400 mg PO TID melatonin 500f10 mg PO BEDTIME PRN mirtazapine 15 mg PO BEDTIME risperidone 0.5 mg PO BEDTIME solifenacin (Vesicare) 10 mg PO DAILY Is last menstrual period known: Yes Last menstrual period: 07/03/23 Post menopausal: No HPI HPI Ovarian Pain: Details: Patient complains of left-sided pain for the last month that she thinks is in her ovary she says Dr. More told her she had a small fibroid last year but it was very small. She is just finished he period Just a few days ago. She had her tubes tied years ago. Denies constipation or any urinary symptoms at this time. [facility] Medical History Encounter for physical examination Chronic fatigue Mild asthma Muscle spasm Cervical radiculopathy Insomnia Depression with anxiety Surgical History Hx of colonoscopy History of cholecystectomy History of tubal ligation History of section Family History Father Hypertension Diabetes Mother Hypertension Depression H/O: pituitary tumor Mental health disorder Son Hypoplastic anemia Sister History of kidney cancer Maternal Grandmother Cancer Social History Housing: Apartment Alcohol intake: current Alcohol intake frequency: holidays/special occasions only Alcohol type: beer and wine Patient Tobacco Use Status: Current someday Tobacco user Tobacco use type: Cigarette Cigarettes Per Day: 3 e-Cigarette/Vaping Use: Never Used Second Hand Smoke Exposure: Yes Substance Use Type: Marijuana service: No Current occupational status: disabled Cognitive needs: Yes (Cane) Hearing needs: No Vision needs: Yes (Glasses) Female Reproductive History Menstrual Age of Menarche: 11 Duration of menses: 6-7 days Date of last menstrual period: 07/03/23 control method: other (tubal ligation) Total pregnancies: 2 Full term: 2 Number of Living Children: 2 Date of last pap smear: 07/17/22 (negative) History of abnormal pap smear: No Date of Mammogram: 09/27/22 Physical Exam Vital Signs: Last Vital Signs BP 112/70 07/12/23 11:27 BMI result Body Mass Index 25.8 Other: Speculum exam within normal limits thin white discharge nulliparous cervix very tightly closed cervix mobile nontender right adnexa nontender left adnexa feels slightly full patient states that is where her tenderness is uterus is very small midposition very good muscle tone. External Female Exam: normal external appearance Speculum Exam - Vagina: normal appearance of the vagina and normal vaginal discharge Speculum Exam - Cervix: normal appearance of the cervix Bimanual exam- vagina & uterus: normal bimanual exam, uterine size normal, consistency normal, uterine mobility normal, uterine shape normal and non-tender Bimanual Exam- Adnexa, other: normal adnexae, no masses and No adnexal tenderness Assessment & Plan Assessment & Plan (1) Pelvic pain: Comment: 07/12/2023 patient complains of left-sided pain X 1 month Code(s): R10.2 - Pelvic and perineal pain Category: Medical Plan Cultures done for gonorrhea chlamydia trichomoniasis Gardnerella and Nan. We will get an ultrasound and I will see her after the ultrasound to see if possibly it is an ovarian cyst in the meantime for pain became very severe she would need to go the emergency room. She also has her annual exams set up and she also has an annual visit with her primary care provider next week as well. Orders: Orders US pelvic and transvaginal Today R10.2 - Pelvic and perineal pain Coding Level of Care Code Est Pt Level 3 (50941) Diagnoses Pelvic pain R10.2
== END 2023-07-12 12:44 | disposition home or self-care (01) ==
LOC: HO.HWSM 11:16
PROVIDERS: PCP Internal Medicine; Visit Provider Advanced Practice Midwife
DX: R10.2 Pelvic and perineal pain (principal)
CPT/HCPCS: 99213

== ENCOUNTER 2023-08-20 14:08 | Outpatient (REF) | payer OTHER, SELFPAY ==
--- NOTE | ~2023-08-20 | US_ITS ---
EXAMINATION: US PELVIS CLINICAL INFORMATION: Pelvic and perineal pain, last menstrual period 2 days ago. COMPARISON: CT abdomen and pelvis 09/27/2022. TECHNIQUE: Ultrasound of the pelvis is performed using both transabdominal and transvaginal transducers along with Doppler. Transvaginal imaging is performed due to inadequate visualization transabdominally. FINDINGS: Uterus is anteverted and measures 10.3 x 3.3 x 5.5 cm. Endometrial thickness is 7 mm. No significant free fluid. Small amount of fluid in the cervix. 0.8 x 0.5 x 0.7 cm fibroid. Left ovary measures 3.0 x 1.4 x 1.6 cm, volume 3.5 mL and is unremarkable. Right ovary measures 3.2 x 1.6 x 1.5 cm, volume 4.0 mL. 1.4 x 1.4 x 0.9 cm right ovarian cyst is likely physiologic, although visualization limited due to bowel gas. 0.4 x 0.2 x 0.3 cm anechoic focus within the myometrium, anterior to the endometrium, difficult to characterize due to small size. US/US pelvic and transvaginal IMPRESSION: 1. Endometrial thickness is 7 mm. 2. A 0.8 cm fibroid. 3. A 1.4 cm right ovarian cyst is likely physiologic, although visualization limited due to bowel gas. 4. A 0.4 cm anechoic focus within the myometrium, anterior to the endometrium, difficult to characterize due to small size. 5. Small amount of fluid in the cervix.
== END 2023-08-20 14:09 | disposition home or self-care (01) ==
LOC: HO.US 14:08
PROVIDERS: PCP Internal Medicine; Visit Provider Advanced Practice Midwife
DX: R10.2 Pelvic and perineal pain (principal)
CPT/HCPCS: 76830; 76856

== ENCOUNTER 2023-09-10 14:25 | Outpatient (AMB) | payer OTHER, SELFPAY ==
[2023-09-10 14:33] VITALS: BP 110/68; BMI 25.8
--- NOTE | 2023-09-10 14:33 | A.OFFVIS_ITS ---
Vital Signs 09/10/23 14:33 Height 5 ft 2 in Weight 141 lb BMI 25.8 BP 110/68 Intake Visit Reasons: Ultrasound follow up Clinical Account Executive Services: Clinical Account Executive Present Information Interpreted: clinical only Agricultural Equipment Salesperson: Agricultural Equipment Salesperson Present Allergies eggplant [EGGPLANT] Allergy (Severe, Verified 09/10/23 14:34) THROAT CLOSING sertraline Allergy (Severe, Verified 09/10/23 14:34) Nausea and Vomiting Is last menstrual period known: Yes Last menstrual period: 09/08/23 HPI HPI Ultrasound follow up: Details: Patient is here to review her ultrasound. She normally sees Dr. More and in fact has an appointment with him coming up for her annual exam she had a known history of fibroids. She had had left-sided discomfort which she still has. Also has back pain for which she is using it a large icy -hot bandage, which she says helps. [facility] Medical History Encounter for physical examination Chronic fatigue Mild asthma Muscle spasm Cervical radiculopathy Insomnia Depression with anxiety Surgical History Hx of colonoscopy History of cholecystectomy History of tubal ligation History of section Family History Father Hypertension Diabetes Mother Hypertension Depression H/O: pituitary tumor Mental health disorder Son Hypoplastic anemia Sister History of kidney cancer Maternal Grandmother Cancer Social History Housing: Apartment Alcohol intake: current Alcohol intake frequency: holidays/special occasions only Alcohol type: beer and wine Patient Tobacco Use Status: Current someday Tobacco user Tobacco use type: Cigarette Cigarettes Per Day: 3 e-Cigarette/Vaping Use: Never Used Second Hand Smoke Exposure: Yes Substance Use Type: Marijuana service: No Current occupational status: disabled Cognitive needs: Yes (Cane) Hearing needs: No Vision needs: Yes (Glasses) Female Reproductive History Menstrual Age of Menarche: 11 Duration of menses: 6-7 days Date of last menstrual period: 09/08/23 control method: permanent sterilization Total pregnancies: 2 Full term: 2 Date of last pap smear: 07/17/22 (negative) History of abnormal pap smear: No Date of Mammogram: 09/27/22 (negative) History of abnormal mammogram: No Physical Exam Vital Signs: Last Vital Signs BP 110/68 09/10/23 14:33 BMI result Body Mass Index 25.8 Results Reviewed Results Reviewed: [address] [address] Ultrasound Report Signed Patient: Britta Brandt MR#: [id number] : 1975 Acct:[id number] Age/Sex: 48 / F ADM Date: 08/20/23 Loc: HO.US Attending Dr: Celena Branham CNM Ordering Physician: Celena Branham CNM Date of Service: 08/20/23 Procedure(s): US pelvic and transvaginal Accession Number(s): [id number] cc: Celena Branham CNM; Tali Clemente MD~ EXAMINATION: US PELVIS CLINICAL INFORMATION: Pelvic and perineal pain, last menstrual period 2 days ago. COMPARISON: CT abdomen and pelvis 09/27/2022. TECHNIQUE: Ultrasound of the pelvis is performed using both transabdominal and transvaginal transducers along with Doppler. Transvaginal imaging is performed due to inadequate visualization transabdominally. FINDINGS: Uterus is anteverted and measures 10.3 x 3.3 x 5.5 cm. Endometrial thickness is 7 mm. No significant free fluid. Small amount of fluid in the cervix. 0.8 x 0.5 x 0.7 cm fibroid. Left ovary measures 3.0 x 1.4 x 1.6 cm, volume 3.5 mL and is unremarkable. Right ovary measures 3.2 x 1.6 x 1.5 cm, volume 4.0 mL. 1.4 x 1.4 x 0.9 cm right ovarian cyst is likely physiologic, although visualization limited due to bowel gas. 0.4 x 0.2 x 0.3 cm anechoic focus within the myometrium, anterior to the endometrium, difficult to characterize due to small size. US/US pelvic and transvaginal IMPRESSION: 1. Endometrial thickness is 7 mm. 2. A 0.8 cm fibroid. 3. A 1.4 cm right ovarian cyst is likely physiologic, although visualization limited due to bowel gas. 4. A 0.4 cm anechoic focus within the myometrium, anterior to the endometrium, difficult to characterize due to small size. 5. Small amount of fluid in the cervix. Dictated By: Jennifer Lawson MD Signed By: <Electronically signed by Jennifer Lawson MD in OV> 09/09/23 1241 DD/ 1449 TD/TT: Logistics Loss Prevention Manager: Assessment & Plan Assessment & Plan (1) Uterine myoma: Code(s): D25.9 - Leiomyoma of uterus, unspecified Category: Medical (2) Pelvic pain: Comment: 07/12/2023 patient complains of left-sided pain X 1 month Code(s): R10.2 - Pelvic and perineal pain Category: Medical Plan I reviewed her ultrasound with her I compared it to previous ultrasounds the myoma that is seen is very small, 0.8 cm and there is a small echogenic focus that is even smaller 0.4 cm within the endometrial lining patient states that she is concerned about that she has had discussions with MZ before about this and she was told that it was something that could be observed and she intends to discuss this further with him at her upcoming October 02 visit. I did share with her that both these findings are very small. Also discussed alina menopausal changes in general and the time range over which yeast changes occur. Coding Level of Care Code Est Pt Level 3 (94897) Diagnoses Uterine myoma D25.9 Pelvic pain R10.2
== END 2023-09-10 15:35 | disposition home or self-care (01) ==
LOC: HO.HWSM 14:25
PROVIDERS: PCP Internal Medicine; Visit Provider Advanced Practice Midwife
DX: D25.9 Leiomyoma of uterus, unspecified (principal); R10.2 Pelvic and perineal pain
CPT/HCPCS: 99213

== ENCOUNTER → 2023-09-10 14:25 | Outpatient (BNVA) | payer OTHER, SELFPAY | PROVIDERS: PCP Internal Medicine; Visit Provider Advanced Practice Midwife | DX: D25.9 Leiomyoma of uterus, unspecified (principal); R10.2 Pelvic and perineal pain | CPT/HCPCS: 99212 ==

== ENCOUNTER 2023-11-13 12:41 | Outpatient (REF) | payer OTHER, SELFPAY ==
[2023-11-14 04:32] LABS: CT PCR NOT DETECTED (Not Detect.); NG PCR NOT DETECTED (Not Detect.)
== END 2023-11-13 12:42 | disposition home or self-care (01) ==
LOC: HO.LNP 12:41
PROVIDERS: PCP Internal Medicine; Visit Provider Obstetrics & Gynecology
DX: R31.29 Other microscopic hematuria (principal); R10.2 Pelvic and perineal pain; Z01.419 Encounter for gynecological examination (general) (routine) without abnormal findings; D25.9 Leiomyoma of uterus, unspecified
CPT/HCPCS: 87086; 87088; 87186; 87491; 87591; 99396

== ENCOUNTER 2023-11-13 12:41 | Outpatient (AMB) | payer OTHER, SELFPAY ==
[2023-11-13 13:14] VITALS: BP 114/72; BMI 25.4
--- NOTE | 2023-11-13 13:14 | A.OFFVIS_ITS ---
Vital Signs 11/13/23 13:14 Height 5 ft 2 in Weight 138 lb 14.259 oz BMI 25.4 BP 114/72 Intake Visit Reasons: annual/DO NOT RS Activity Coordinator Required: Yes Activity Coordinator Language: Rolfer Services: Activity Coordinator Present (in person) Activity Coordinator Name: Kami RAYA Information Interpreted: non-clinical & clinical Chair Inspector: Chair Inspector Present (Kami RAYA) Accompanied by: Self / Same As Patient Allergies eggplant [EGGPLANT] Allergy (Severe, Verified 11/13/23 13:23) THROAT CLOSING sertraline Allergy (Severe, Verified 11/13/23 13:23) Nausea and Vomiting HPI Comments Details: Presenting for annual exam. No complaints. Last Pap/HPV was negative in 08/03 Last Mammogram was BI-RADS 2 in 10/03 Last colonoscopy was in 03/06, the recommendation was to repeat in 5 years Last pelvic ultrasound done in 09/03 showed the following: Uterus is anteverted and measures 10.3 x 3.3 x 5.5 cm. Endometrial thickness is 7 mm. No significant free fluid. Small amount of fluid in the cervix. 0.8 x 0.5 x 0.7 cm fibroid. Left ovary measures 3.0 x 1.4 x 1.6 cm, volume 3.5 mL and is unremarkable. Right ovary measures 3.2 x 1.6 x 1.5 cm, volume 4.0 mL. 1.4 x 1.4 x 0.9 cm right ovarian cyst is likely physiologic, although visualization limited due to bowel gas. 0.4 x 0.2 x 0.3 cm anechoic focus within the myometrium, anterior to the endometrium, difficult to characterize due to small size. The patient was diagnosed microscopic hematuria was referred to Urology, workup was done diagnosis recurrent UTIs with overactive bladder, the patient was prescribed VESIcare which she stopped on her own because she did not feel a difference in her symptoms still complaining of pelvic pressure especially when her bladder is full that is relieved afterwards associated with frequency and nocturia, no dysuria. [facility] Medical History Encounter for physical examination Chronic fatigue Mild asthma Muscle spasm Cervical radiculopathy Insomnia Depression with anxiety Surgical History Hx of colonoscopy History of cholecystectomy History of tubal ligation History of section Family History Father Hypertension Diabetes Mother Hypertension Depression H/O: pituitary tumor Mental health disorder Son Hypoplastic anemia Sister History of kidney cancer Maternal Grandmother Cancer Social History Housing: Apartment Alcohol intake: current Alcohol intake frequency: holidays/special occasions only Alcohol type: beer and wine Patient Tobacco Use Status: Current someday Tobacco user Tobacco use type: Cigarette Cigarettes Per Day: 3 e-Cigarette/Vaping Use: Never Used Second Hand Smoke Exposure: Yes Substance Use Type: Marijuana service: No Current occupational status: disabled Cognitive needs: Yes (Cane) Hearing needs: No Vision needs: Yes (Glasses) Female Reproductive History Menstrual Age of Menarche: 11 control method: permanent sterilization Total pregnancies: 2 Full term: 2 Number of Living Children: 2 Date of last pap smear: 07/17/22 Date of Mammogram: 09/27/22 Review of Systems Const All systems reviewed & are unremarkable except as noted in HPI and below Card Reports as per HPI Resp Reports as per HPI GI Reports as per HPI and Reports no additional complaints Reports as per HPI Physical Exam Vital Signs: Last Vital Signs BP 114/72 11/13/23 13:14 BMI result Body Mass Index 25.4 Const General: cooperative, healthy appearing and comfortable Chest Chest palpation & inspection: normal inspection of the chest and normal palpation of entire chest wall Breast/axilla inspection: normal inspection of the breasts and normal inspection of the axillae Breast/axilla palpation: normal palpation of the breasts, normal palpation of the axillae and no axillary lymphadenopathy Resp Effort & Inspection: normal respiratory effort Auscultation: clear to auscultation bilaterally Percussion: percussion normal Cardio Palpation: normal PMI Rate: regular rate Rhythm: regular rhythm Heart sounds: no murmurs and no rubs Peripheral pulses: Peripheral pulses 2+ throughout GI Inspection: Yes normal to inspection Palpation (GI): Soft to palpation, nontender, no guarding, not rigid and No hepatosplenomegaly present Percussion: Yes normal to percussion Auscultation: normal bowel sounds Rectal Exam - Female: deferred General: Yes bladder normal to palpation External Female Exam: No lesion Speculum Exam - Vagina: normal appearance of the vagina, normal palpation, normal vaginal discharge and not erythematous Speculum Exam - Cervix: normal appearance of the cervix and normal palpation Bimanual exam- vagina & uterus: normal bimanual exam, normal palpation, uterine size normal, bladder normal to palpation, consistency normal and normal palpation Bimanual Exam- Adnexa, other: normal adnexae, no masses and no tenderness Assessment & Plan Assessment & Plan (1) Well woman exam: Code(s): Z01.419 - Encounter for gynecological examination (general) (routine) without abnormal findings Category: Medical Plan: Co testing not indicated this. Counseled the patient about the recommended dietary allowance of 1200 mg of Calcium & 600 IU of vitamin D. Mammogram ordered. The patient was referred to GI for screening colonoscopy . The patient was instructed to perform monthly self-breast exams and schedule annual exam in a year. All questions answered and the patient verbalized understanding. (2) Pelvic pain: Code(s): R10.2 - Pelvic and perineal pain Category: Medical Plan: Urine dip and test done in the office were both negative. GC and chlamydia taken and pelvic ultrasound ordered. Discussed with the patient the differential diagnosis of pelvic pain including but not limited to adnexal, uterine masses, pelvic infections (PID), GI the (Irritable bowel syndrome, diverticulitis, others), musculoskeletal, myofascial pain abdominal wall , adhesions, endometriosis, psychological and others causes. Will check results and treat accordingly. All questions answered, the patient verbalized understanding. Instructed the patient to schedule follow-up appointment in 2 weeks (3) Uterine myoma: Code(s): D25.9 - Leiomyoma of uterus, unspecified Category: Medical Plan: Ultrasound ordered . Instructions given the patient to schedule a pelvic ultrasound and a follow-up appointment (4) Microscopic hematuria: Code(s): R31.29 - Other microscopic hematuria Category: Medical Plan: Urine culture sent, the patient is in the process schedule a follow-up appointment with urology Orders: Orders MM tomosynthesis screening BI Today Z12.31 - Encounter for screening mammogram for malignant neoplasm of breast Urine Culture Today R31.29 - Other microscopic hematuria Coding Level of Care Code Est Pt Prev Care 40-64y(96400) Diagnoses Well woman exam Z01.419 Pelvic pain R10.2 Uterine myoma D25.9 Microscopic hematuria R31.29
== END 2023-11-13 13:47 | disposition home or self-care (01) ==
PROVIDERS: PCP Internal Medicine; Visit Provider Obstetrics & Gynecology
DX: Z01.419 Encounter for gynecological examination (general) (routine) without abnormal findings (principal); R10.2 Pelvic and perineal pain; D25.9 Leiomyoma of uterus, unspecified; R31.29 Other microscopic hematuria
CPT/HCPCS: 99396

== ENCOUNTER 2023-11-16 09:21 | Outpatient (REF) | payer OTHER, SELFPAY ==
--- NOTE | ~2023-11-16 | MM_ITS ---
EXAMINATION: MM SCREENING DIGITAL BREAST TOMOSYNTHESIS, BILATERAL CLINICAL INFORMATION: Screening. Asymptomatic. COMPARISON: Mammography: Comparison is made with available priors TECHNIQUE: Digital breast mammography with tomosynthesis is performed in both the craniocaudal and mediolateral oblique views along with computer-aided detection (CAD). FINDINGS: The breasts are heterogeneously dense, which may obscure small masses (ACR BI-RADS breast composition Category c). Right: There are no significant masses, abnormal calcifications, or other abnormalities. Left: Asymmetry superior breast middle depth on MLO view. No suspicious calcifications or other abnormal findings. MM/MM tomosynthesis screening BI IMPRESSION: Additional imaging is recommended ASSESSMENT: BI-RADS BI-RADS 0 - Incomplete: Needs additional Imaging. RECOMMENDATION: 1. Additional views of the left breast 2. Targeted ultrasound if warranted after review of the additional views. 3. Radiology department staff will contact the patient for additional imaging. Additional Imaging required This examination should not preclude the clinical evaluation of a suspicious palpable abnormality. This patient's information was entered into a reminder system with a target due date for their next mammogram. Electronically signed by: Alka Ramirez DO 11/29/2023 09:31 AM EDT
== END 2023-11-16 09:22 | disposition home or self-care (01) ==
LOC: HO.MAMMO 09:21
PROVIDERS: PCP Internal Medicine; Visit Provider Obstetrics & Gynecology
DX: Z12.31 Encounter for screening mammogram for malignant neoplasm of breast (principal)
CPT/HCPCS: 77063; 77067

== ENCOUNTER → 2023-11-16 10:30 | Outpatient (BNV) | payer OTHER, SELFPAY | PROVIDERS: PCP Internal Medicine; Visit Provider Internal Medicine | DX: Z12.31 Encounter for screening mammogram for malignant neoplasm of breast (principal) | CPT/HCPCS: 77063; 77067 ==

== ENCOUNTER 2023-11-20 15:15 | Outpatient (REF) | payer OTHER, SELFPAY ==
--- NOTE | ~2023-11-20 | US_ITS ---
EXAMINATION: US PELVIS CLINICAL INFORMATION: Pelvic and perineal pain, last menstrual period October 2003. COMPARISON: August 20, 2023 TECHNIQUE: Ultrasound of the pelvis is performed using both transabdominal and transvaginal transducers along with Doppler. Transvaginal imaging is performed due to inadequate visualization transabdominally. FINDINGS: The anteverted uterus measures 9.2 x 3.8 x 5.2 cm. Endometrial thickness is 5 mm. 0.9 x 0.7 x 0.7 cm hypoechoic uterine mass, previously 0.8 x 0.5 x 0.7 cm, most likely represents a fibroid. 0.4 x 0.3 x 0.3 cm very hypoechoic lesion, previously 0.4 x 0.2 x 0.3 cm, possibly representing a myometrial cyst versus hypoechoic lesion such as a fibroid. Right ovary measures 1.9 x 2.2 x 1.4 cm, volume of 3.2 mL. Left ovary measures 2.8 x 1.9 x 2.2 cm, volume 6.1 mL. Limited visualization due to bowel gas. US/US pelvic and transvaginal IMPRESSION: 1. Endometrial thickness is 5 mm. 2. A 0.9 cm hypoechoic uterine mass, previously 0.8 cm, most likely represents a fibroid 3. A 0.4 cm very hypoechoic lesion, previously 0.4 cm, possibly representing a myometrial cyst versus hypoechoic lesion such as a fibroid. Electronically signed by: Jennifer Lawson MD 01/28/2024 01:33 PM [facility]
== END 2023-11-20 15:16 | disposition home or self-care (01) ==
LOC: HO.US 15:15
PROVIDERS: PCP Internal Medicine; Visit Provider Obstetrics & Gynecology
DX: R10.2 Pelvic and perineal pain (principal)
CPT/HCPCS: 76830; 76856

== ENCOUNTER 2023-11-21 13:53 | Outpatient (AMB) | payer OTHER, SELFPAY ==
--- NOTE | 2023-11-21 14:02 | A.OFFVIS_ITS ---
Intake Visit Reasons: hematuria Intake Note: Patient is present for hematuria Urology Medication:solifenacin Antibiotic Allergy:none Blood Thinner:none Proof Load Mechanic Required: No Allergies eggplant [EGGPLANT] Allergy (Severe, Verified 11/21/23 14:03) THROAT CLOSING sertraline Allergy (Severe, Verified 11/21/23 14:03) Nausea and Vomiting HPI Comments Details: 11/21/23--Britta is a 48-year-old female who is here for follow-up due to recurrent UTIs and pelvic pain. LV - 04/18/23--She was seen last on 03/18/2023- office cystoscopy noted cystitis and urine was sent for culture which came back E coli. She was treated with a 10 day course of Levaquin. I discussed use of nitrofurantoin 50 mg post intercourse. The patient today also raises concerns that she is afraid of cancer as her s ister had kidney cancer. I have reviewed with her today prior CT scan from October 2022--kidneys were normal. I have reviewed with her prior urine cytology from October 2022 which was negative for malignant cells. VESIcare 10 mg daily. Reevaluate with repeat CT abdomen. Review of chart: 03/18/23--Britta is a 47-year-old female who presents today office cystoscopy. She has had recurrent UTI's. The patient is a [place] speaking female. Certified police officer was present during the visit. She was initially referred to the urology office by her OB-PRINTING SUPPLIES SALES REPRESENTATIVE for microscopic hematuria. She states that her software reliability engineer has prescribed antibiotics for her urinary tract infections. She is having frequent urination and has burning with urination. FH--father and sister had kidney cancer. Her sister had kidney cancer diagnosed when she was 6 yrs old and is sp nephrectomy, and her father is . I reviewed last urine c/s - 10/24/2022-- Ecoli - the patient was treated with Bactrim. 03/18/23--Office cystoscopy - Cystoscopy findings: bullous changes consistent wth cystitis, no suspicious bladder lesions visualized Test reports: I reviewed the abdomen/pelvis CT results from 09/26/2022 revealed?normal kidneys, no hydronephrosis of the right kidney. I reviewed the urine culture results from 08/08/2022 revealed Escherichia coli > 100,000 cfu/mL PFSH Medical History Encounter for physical examination Chronic fatigue Mild asthma Muscle spasm Cervical radiculopathy Insomnia Depression with anxiety Surgical History Hx of colonoscopy History of cholecystectomy History of tubal ligation History of section Family History Father Hypertension Diabetes Mother Hypertension Depression H/O: pituitary tumor Mental health disorder Son Hypoplastic anemia Sister History of kidney cancer Maternal Grandmother Cancer Social History Housing: Apartment Alcohol intake: current Alcohol intake frequency: holidays/special occasions only Alcohol type: beer and wine Patient Tobacco Use Status: Current someday Tobacco user Tobacco use type: Cigarette Cigarettes Per Day: 3 e-Cigarette/Vaping Use: Never Used Second Hand Smoke Exposure: Yes Substance Use Type: Marijuana service: No Current occupational status: disabled Cognitive needs: Yes (Cane) Hearing needs: No Vision needs: Yes (Glasses) Female Reproductive History Menstrual Age of Menarche: 11 Review of Systems Const All systems reviewed & are unremarkable except as noted in HPI and below Reports no additional complaints Eyes Reports no additional complaints ENT Reports no additional complaints Card Reports no additional complaints Resp Reports no additional complaints GI Reports no additional complaints Reports as per HPI Musc Reports no additional complaints Skin/Breast Reports system reviewed and no additional complaints, except as documented Neuro Reports no additional complaints Psych Reports no additional complaints Endo Reports no additional complaints Tu/Lymph Reports no additional complaints Aller/Immun Reports no additional complaints Results AMB Urinalysis, Automated UA Leukoctes 0 Francesca/uL Last Edit by EMMETT [place] on 11/21/23 14:37 UA Nitrite Negative Last Edit by EMMETT [place] on 11/21/23 14:37 UA Urobilinogen 1 mg/dL Last Edit by EMMETT [place] on 11/21/23 14:37 UA Protein 30 mg/dL Last Edit by EMMETT [place] on 11/21/23 14:37 UA pH 8.5 Last Edit by EMMETT [place] on 11/21/23 14:37 UA Blood 10 Garth/uL Last Edit by EMMETT [place] on 11/21/23 14:37 UA Specific Hector 1.005 Last Edit by EMMETT [place] on 11/21/23 14: 37 UA Ketone Negative Last Edit by EMMETT [place] on 11/21/23 14:37 UA Bilirubin 0 mg/dL Last Edit by EMMETT [place] on 11/21/23 14:37 UA Glucose 0 mg/dL Last Edit by EMMETT [place] on 11/21/23 14:37 Results Reviewed Results Reviewed: Laboratory Last Values Urine pH (Auto) 8.5 11/21/23 14:36 Specific Hector (Auto) 1.005 11/21/23 14:36 Urine Protein (Auto) 30 mg/dL 11/21/23 14:36 Glucose (UA)(Auto) 0 mg/dL 11/21/23 14:36 Urine Ketones (Auto) Negative 11/21/23 14:36 Urine Blood (Auto) 10 Garth/uL 11/21/23 14:36 Urine Nitrite (Auto) Negative 11/21/23 14:36 Urine Bilirubin (Auto) 0 mg/dL 11/21/23 14:36 Urine Urobilinogen (Auto) 1 mg/dL 11/21/23 14:36 Leukocyte Esterase (Auto) 0 Francesca/uL 11/21/23 14:36 Date of Service: 09/26/22 EXAMINATION: CT ABDOMEN AND PELVIS WITHOUT AND WITH CONTRAST CLINICAL INFORMATION: Microscopic hematuria COMPARISON: 08/10/2022 FINDINGS: LUNG BASES: The visualized lung bases are unremarkable. LIVER, GALLBLADDER, AND BILIARY TREE: The liver is normal in size, shape, and attenuation. No focal hepatic lesion or biliary ductal dilatation is present. Gallbladder is surgically absent. PANCREAS: Unremarkable SPLEEN: Unremarkable ADRENAL GLANDS: Unremarkable KIDNEYS AND URETERS: The kidneys are normal in size, shape, and attenuation. No hydronephrosis, hydroureter, or calculi seen. No perinephric stranding. BLADDER: Unremarkable GASTROINTESTINAL TRACT: The small and large bowel are unremarkable. The appendix is unremarkable. ABDOMINAL WALL: No significant hernia is appreciated. LYMPH NODES: Normal VASCULAR: Unremarkable PELVIC VISCERA: Unremarkable OSSEOUS STRUCTURES: Unremarkable IMPRESSION: No explanation for hematuria. Status post cholecystectomy. Assessment & Plan Assessment & Plan (1) Hematuria: Code(s): R31.9 - Hematuria, unspecified Category: Medical (2) Cystitis: Code(s): N30.90 - Cystitis, unspecified without hematuria Category: Medical Plan Persistent microscopic hematuria. FU CT Orders: Orders Urine Cytology 11/21/23 N39.0 - Urinary tract infection, site not specified AMB Urinalysis Automated 11/21/23 Z13.9 - Encounter for screening, unspecified Patient Instructions: The patient had an opportunity to ask questions regarding treatment plan. The patient expressed understanding and agreement with the above treatment plan. The patient is aware they should contact our office by phone for worsening of their current condition or the appearance of new symptoms. Compliance is encouraged with any medications and followup testing that is ordered. It is a privilege to be allowed the opportunity to participate in the urologic care of your patient. If you have any questions or concerns regarding treatment for the above conditions please do not hesitate to contact me. The office telephone contact is [phone]. This note is constructed in part using voice recognition software. While every effort has been made to ensure accuracy electronic device monitor errors may have been included. Yours sincerely, Radha Mitchell MD Coding Level of Care Code Est Pt Level 3 (25684) Diagnoses Hematuria R31.9 Cystitis N30.90
== END 2023-11-21 14:50 | disposition home or self-care (01) ==
PROVIDERS: PCP Internal Medicine; Visit Provider Urology
DX: R31.9 Hematuria, unspecified (principal); N30.90 Cystitis, unspecified without hematuria
CPT/HCPCS: 99213

== ENCOUNTER 2023-11-21 13:53 | Outpatient (REF) | payer OTHER, SELFPAY ==
[2023-11-21 16:44] LABS: Urine Cytology See Pathology rpt
== END 2023-11-21 13:54 | disposition home or self-care (01) ==
LOC: HO.LNP 13:53
PROVIDERS: PCP Internal Medicine; Visit Provider Urology
DX: N39.0 Urinary tract infection, site not specified (principal)
CPT/HCPCS: 81003; 88112; 99212

== ENCOUNTER 2023-12-03 14:15 | Outpatient (REF) | payer OTHER, SELFPAY ==
--- NOTE | ~2023-12-03 | MM_ITS ---
EXAMINATION: MM DIAGNOSTIC DIGITAL BREAST TOMOSYNTHESIS, LEFT US BREAST LIMITED, LEFT MAMMOGRAPHY: CLINICAL INFORMATION: Diagnostic; evaluate asymmetry on the MLO view only, superior breast middle depth, seen on screening exam. COMPARISON: Mammography: Screening mammography 11/16/2023. Exams dating to 2018. TECHNIQUE: Digital breast tomosynthesis is performed in the following views: Full field left rete mediolateral view, as well as spot compression 3-D left MLO view. This was followed by targeted left breast ultrasound. FINDINGS: The breasts are heterogeneously dense, which may obscure small masses (ACR BI-RADS breast composition Category c). Spot compression views demonstrate a very focally dense region of tissue in the superior left breast middle depth, without definitive underlying mass, abnormal calcifications, or architectural distortion. There is no definite correlate on the corresponding screening CC view. We will evaluate this dense region with ultrasound. ULTRASOUND: CLINICAL INFORMATION: As above. COMPARISON: None contributory. TECHNIQUE: Targeted sonographic evaluation was performed using a high frequency linear transducer. Left breast was examined from the 10:00 to the 2:00 axis, to include the area of mammographic concern. Selected archived documentation. FINDINGS: LEFT BREAST: -There is a region of very dense fibrocystic tissue with mild duct ectasia in the approximate 1:00-2:00 axis left breast, correlating with the dense region on mammography. There is no discrete underlying mass, abnormal shadowing, or areas of architectural distortion. Findings are benign. MM/MM tomosynthesis added views L IMPRESSION: -There are no findings suspicious for malignancy in the left breast. -Dense region of benign fibrocystic tissue present in the superior central left breast. No suspicious finding. -Recommend the patient return to routine annual screening mammography. OVERALL ASSESSMENT: Mammography: BI-RADS 2 - Benign Findings Ultrasound: BI-RADS 2 - Benign Findings RECOMMENDATION: 1 year F/U This patient's information was entered into a reminder system with a target due date for their next mammogram. Their next mammogram. Electronically signed by: Bonilla Cohen MD 12/03/2023 04:29 PM EDT
== END 2023-12-03 14:16 | disposition home or self-care (01) ==
LOC: HO.MAMMO 14:15
PROVIDERS: PCP Internal Medicine; Visit Provider Obstetrics & Gynecology
DX: N64.89 Other specified disorders of breast (principal)
CPT/HCPCS: 76642; 77061; 77065

== ENCOUNTER → 2023-12-03 15:00 | Outpatient (BNV) | payer OTHER, SELFPAY | PROVIDERS: PCP Internal Medicine; Visit Provider Radiology Diagnostic Radiology | DX: N60.32 Fibrosclerosis of left breast (principal) | CPT/HCPCS: 76642; 77065; G0279 ==

== ENCOUNTER 2024-02-13 09:37 | Outpatient (REF) | payer OTHER, SELFPAY ==
--- NOTE | ~2024-02-13 | CT_ITS ---
CLINICAL HISTORY: R31.9 - Hematuria, unspecified CT abdomen and pelvis with and without contrast Comparison: 09/26/2022 Findings: No consolidation or effusion. Unremarkable solid organs. There are no abnormal findings in the gallbladder fossa. No urolithiasis. No bowel obstruction, pneumoperitoneum, or pneumatosis. Pelvic contents unremarkable. Normal appendix. The bones are intact. IMPRESSION: No acute findings. This document has been electronically signed by: Jose David Marshall MD on 02/13/2024 22:10:33
[2024-02-13] MEDS: iohexoL 350 MG/ML 100 ML INFUS..BTL IV (11:24)
== END 2024-02-13 09:38 | disposition home or self-care (01) ==
LOC: HO.CT 09:37
PROVIDERS: PCP Internal Medicine; Visit Provider Urology
DX: R31.9 Hematuria, unspecified (principal)
CPT/HCPCS: 74178; Q9967

== ENCOUNTER → 2024-02-13 09:40 | Outpatient (BNV) | payer OTHER, SELFPAY | PROVIDERS: PCP Internal Medicine; Visit Provider Specialist | DX: R31.9 Hematuria, unspecified (principal) | CPT/HCPCS: 74178 ==

== ENCOUNTER 2024-02-23 20:51 | Emergency (ER) | payer OTHER, SELFPAY ==
[2024-02-23 20:54] VITALS: BP 131/77; PULSE 97; RESP 18; TEMP 36.8; O2SAT 100; BMI 24.5
[2024-02-23 21:14] LABS: MANUAL DIFF FLAG NO
[2024-02-23 21:16] LABS: Basophils Absolute Auto 0.1 X10*3/uL (0.0-0.2); Basophils Percent Auto 0.8 % (0-2); Eosinophils Absolute Auto 0.1 X10*3/uL (0.0-0.4); Eosinophils Percent Auto 1.1 % (0-4); Hematocrit 40.9 % (37.0-47.0); Hemoglobin 13.8 g/dl (12.0-16.0); Imm Gran Abs Auto 0.03 X10*3/uL (0.00-0.03); Imm Gran Pct Auto 0.3 % (0.0-0.4); Lymphocytes Absolute Auto 2.5 X10*3/uL (1.2-4.9); Mean Corpuscular HGB Conc 33.7 g/dl (31.0-35.0); Mean Corpuscular Hemoglobin 28.2 pg (27.0-33.0); Mean Corpuscular Volume 83.5 fL (80.0-98.0); Mean Platelet Volume 10.2 fL (9.4-12.3); Monocytes Absolute Auto 0.8 X10*3/uL (0.1-1.2); Neutrophils Absolute Auto 6.6 x10*3/uL (2.0-8.3); Neutrophils Percent Auto 64.8 % (45-73); Platelet Count 333 X10*3/uL (160-400); Red Cell Distribution Width 13.4 % (11.0-16.0); White Blood Count 10.2 X10*3/uL (4.8-10.8)
[2024-02-23 21:32] LABS: Appearance Urine Clear; Color Urine Yellow; Glucose Urine UA Negative (Negative); Leukocyte Esterase Urine Trace (Negative); Nitrite Urine Negative (Negative); UMIC TRIGGER UACC YES; Urine Blood Negative (Negative); Urine Ketones Negative (Negative); Urine Protein Negative (Neg-Trace)
[2024-02-23 21:33] LABS: UPreg QC Valid YES; Urine Pregnancy NEGATIVE (NEGATIVE)
[2024-02-23 21:37] LABS: Bacteria Urine 1+ (None Seen); Hyaline Casts Urine 0-2 /LPF (0-2); RBC Urine 0-2 /HPF (0-2); UACC Culture Trigger YES
[2024-02-23 21:55] LABS: Alanine Aminotransferase 31 U/L (0-31); Albumin Level 4.5 g/dL (3.5-5.0); Alkaline Phosphatase 73 U/L (39-117); Anion Gap 13 (12-20); Aspartate Amino Transferase 22 U/L (5-31); Bilirubin Direct < 0.2 mg/dL (0.0-0.5); Bilirubin Total 0.2 mg/dL (0.0-1.0); Blood Urea Nitrogen 12 mg/dL (9-16); Calcium 9.7 mg/dL (8.4-10.2); Carbon Dioxide 29 mmol/L (22-29); Chloride 105 mmol/L (96-108); Creatinine Clr Calc Pharmacy 81.4; Estimated Glomerular Filt Rate > 60; Glucose Random 98 mg/dL (60-115); Lipase 24 U/L (8-78); Potassium 3.7 mmol/L (3.3-5.1); Sodium 143 mmol/L (135-145); Total Protein 7.9 g/dL (6.5-8.0)
[2024-02-23 22:09] LABS: Influenza A PCR NEGATIVE (Negative); Influenza B PCR NEGATIVE (Negative); Resp Syncy Virus RNA Qual PCR NEGATIVE (Negative); SARS COV2 PCR INHOUSE NEGATIVE (Negative)
--- NOTE | 2024-02-24 00:32 | ED.GENADULT ---
HPI - General Adult General Chief complaint: Abdominal Pain Stated complaint: abd pain Time Seen by Provider: 02/24/24 00:31 History of Present Illness ED Provider: Dyan CRONIN narrative: The patient is a 48-year-old woman who says that she developed epigastric abdominal pain at around 18:00 this evening. She said that she had nausea earlier in vomited. She has not had any diarrhea. She is not currently nauseated but continues to have pain in her epigastrium. She says that she has had similar pain in the past that has been attributed to gastritis. This was in 2019. She believes she was prescribed omeprazole that time. She is not currently taking omeprazole. The patient says that she fractured her left ankle in mid January. She was seen at [facility]. She has been wearing an orthopedic boot because of this fracture. She has followed up with Orthopedics. She has been taking acetaminophen, ibuprofen, and oxycodone. She wonders whether these pain medications may have triggered her current pain today. Related Data Home Medications ?Medication ?Instructions ?Recorded ?Confirmed gabapentin 400 mg capsule 400 mg PO TID 03/16/20 07/12/23 melatonin 5 mg tablet 500f10 mg PO BEDTIME PRN insomnia 03/16/20 07/12/23 mirtazapine 15 mg tablet 15 mg PO BEDTIME 03/16/20 07/12/23 risperidone 0.5 mg tablet 0.5 mg PO BEDTIME 03/16/20 07/12/23 Previous Rx's ?Medication ?Instructions ?Recorded bisacodyl 5 mg tablet,delayed 20 mg (4 x 5 mg) PO ONCE 10/10/22 release (Dulcolax (bisacodyl)) colonoscopy prep 1 day #4 tabs solifenacin 10 mg tablet 10 mg PO DAILY #90 tabs 07/14/23 cholecalciferol (vitamin D3) 25 25 mcg PO DAILY 90 days #90 caps 09/14/23 mcg (1,000 unit) capsule nitrofurantoin 100 mg PO BID 5 days #10 caps 11/15/23 monohydrate/macrocrystals 100 mg capsule (Macrobid) albuterol sulfate 90 mcg/actuation 2 puff inhalation Q4-6H PRN 02/18/24 aerosol inhaler (Ventolin HFA) shortness of breath or wheezing #8.5 grams omeprazole 40 mg capsule,delayed 40 mg PO DAILY #30 caps 02/24/24 release ondansetron 4 mg disintegrating 4 mg PO Q6H PRN nausea and 02/24/24 tablet vomiting #10 tabs sucralfate 1 gram tablet 1 g PO BID Epigastric pain #60 tabs 02/24/24 Allergies Allergy/AdvReac Type Severity Reaction Status Date / Time eggplant [EGGPLANT] Allergy Severe THROAT Verified 02/23/24 20:55 CLOSING sertraline Allergy Severe Nausea and Verified 02/23/24 20:55 Vomiting Review of Systems Review of Systems: Yes all other systems are reviewed and are negative PMFSH Past Medical History Medical History Encounter for physical examination Chronic fatigue Mild asthma Muscle spasm Cervical radiculopathy Insomnia Depression with anxiety Surgical History Hx of colonoscopy History of cholecystectomy History of tubal ligation History of section Family History Family History Father Hypertension Diabetes Mother Hypertension Depression H/O: pituitary tumor Mental health disorder Son Hypoplastic anemia Sister History of kidney cancer Maternal Grandmother Cancer Social History Social History Housing: Apartment Alcohol intake: current Alcohol intake frequency: holidays/special occasions only Alcohol type: beer and wine Patient Tobacco Use Status: Current someday Tobacco user Tobacco use type: Cigarette Cigarettes Per Day: 3 e-Cigarette/Vaping Use: Never Used Second Hand Smoke Exposure: Yes Substance Use Type: Marijuana Advance Directives: No Advance Directives Information Provided: Yes Do you have a plan to hurt others: No Plan service: No Current occupational status: disabled Cognitive needs: Yes (Cane) Hearing needs: No Vision needs: Yes (Glasses) Physical Exam ED Vital Signs: Vital Signs - 24 hr 02/23/24 20:54 02/24/24 01:38 Temperature 98.2 F 98.0 F Pulse Rate 97 86 Respiratory Rate 18 18 Blood Pressure 131/77 131/77 Pulse Oximetry 100 98 Oxygen Delivery Method Room Air Room Air BMI result Body Mass Index 24.5 Const Other: The patient is a 48-year-old woman who is sitting hunched over clutching her abdomen. She looked uncomfortable. HENMT Other: Face is symmetrical. Mucous membranes moist. Eyes General: appearance normal, both eyes and all related structures Conjunctivae: conjunctivae normal Pupils: Equal, round and reactive pupils present EOM: EOMs intact bilaterally Neck Neck: Yes normal visual inspection and Yes full ROM Resp Effort & Inspection: normal respiratory effort Auscultation: clear to auscultation bilaterally Cardio Rate: regular rate Rhythm: regular rhythm Heart sounds: S1 normal heart sound present and S2 normal heart sound present GI Other: The abdomen is flat and soft. There was tenderness in the epigastrium without rebound or guarding. The other areas of the abdomen were soft and nontender. No right upper quadrant tenderness. No right lower quadrant tenderness. Skin General skin exam: no rashes or lesions noted Neuro Other: The patient is awake and alert. Mental status is normal. Cranial nerves are grossly intact. She moves her extremities normally. Cranial nerves: Yes Equal, round and reactive pupils present Extrem Other: The patient is wearing an orthopedic boot on her left lower leg. Medications Administered Discontinued Medications Generic Name Dose Route Start Last Admin Trade Name Ashley PRN Reason Stop Dose Admin Omeprazole 40 mg 02/24/24 01:21 02/24/24 01:25 Omeprazole 40 Mg Capsule.Dr PO 02/24/24 01:22 40 mg ONCE ONE Administration Sucralfate 2 gm 02/24/24 00:38 02/24/24 00:59 Sucralfate Oral Suspension 1 Gm/10 Ml Oral.Susp PO 02/24/24 00:39 2 gm ONCE ONE Administration Medical Decision Making Medical Decision Making [facility] Narrative: The patient presents with epigastric pain similar to previous Pains in the past attributed to gastritis. Her labs are unremarkable. Her abdomen seems benign. No right upper quadrant tenderness. No Bach sign. No right lower quadrant tenderness.She was given a dose of sucralfate with improvement in her discomfort. She will be discharged with prescriptions for omeprazole and sucralfate. Lab Data 02/23/24 21:09 02/23/24 21:09 Labs: Lab Results 02/23/24 02/23/24 02/23/24 Range/Units 21:09 21:23 21:24 WBC 10.2 (4.8-10.8) X10*3/uL RBC 4.90 (4.20-5.50) X10*6/uL Hgb 13.8 (12.0-16.0) g/dl Hct 40.9 (37.0-47.0) % MCV 83.5 (80.0-98.0) fL MCH 28.2 (27.0-33.0) pg MCHC 33.7 (31.0-35.0) g/dl RDW 13.4 (11.0-16.0) % Plt Count 333 D (160-400) X10*3/uL MPV 10.2 (9.4-12.3) fL Immature Gran % (Auto) 0.3 (0.0-0.4) % Neut % (Auto) 64.8 (45-73) % Lymph % (Auto) 25.0 (20-40) % [place] % (Auto) 8.0 (2-11) % Eos % (Auto) 1.1 (0-4) % Baso % (Auto) 0.8 (0-2) % Lymph # (Auto) 2.5 (1.2-4.9) X10*3/uL [place] # (Auto) 0.8 (0.1-1.2) X10*3/uL Eos # (Auto) 0.1 (0.0-0.4) X10*3/uL Baso # (Auto) 0.1 (0.0-0.2) X10*3/uL Abs Immat Gran (auto) 0.03 (0.00-0.03) X10*3/uL Absolute Neuts (auto) 6.6 (2.0-8.3) x10*3/uL Absolute Nucleated RBC 0.000 (0.0-0.012) X10*3/uL Nucleated RBC % (auto) 0.0 (0.0-0.2) /100WBC Sodium 143 (135-145) mmol/L Potassium 3.7 (3.3-5.1) mmol/L Chloride 105 (96-108) mmol/L Carbon Dioxide 29 (22-29) mmol/L Anion Gap 13 (12-20) BUN 12 (9-16) mg/dL Creatinine 0.76 (0.5-1.4) mg/dL Estim Creat Clear Calc 81.4 Estimated GFR > 60 Random Glucose 98 (60-115) mg/dL Calcium 9.7 (8.4-10.2) mg/dL Total Bilirubin 0.2 (0.0-1.0) mg/dL Direct Bilirubin < 0.2 (0.0-0.5) mg/dL AST 22 (5-31) U/L ALT 31 (0-31) U/L Alkaline Phosphatase 73 (39-117) U/L Total Protein 7.9 (6.5-8.0) g/dL Albumin 4.5 (3.5-5.0) g/dL Lipase 24 (8-78) U/L Urine Color Yellow Urine Appearance Clear Urine pH 8.0 (5.0-9.0) Ur Specific [place] 1.010 (1.005-1.025) Urine Protein Negative (Neg-Trace) mg/dL Urine Glucose (UA) Negative (Negative) mg/dL Urine Ketones Negative (Negative) mg/dL Urine Blood Negative (Negative) Urine Nitrite Negative (Negative) Ur Leukocyte Esterase Trace H (Negative) Urine RBC 0-2 (0-2) /HPF Urine WBC 11-20 H (0-5) /HPF Ur Squamous Epith Cells 3-5 (0-2) /HPF Urine Bacteria 1+ (None Seen) Hyaline Casts 0-2 (0-2) /LPF Urine Test NEGATIVE (NEGATIVE) Influenza Type A (PCR) NEGATIVE (Negative) Influenza Type B (PCR) NEGATIVE (Negative) RSV RNA Qual (PCR) NEGATIVE (Negative) SARS-CoV-2 RNA (RT-PCR) NEGATIVE (Negative) Discharge Plan Discharge Clinical Impression: Acute epigastric pain Patient Disposition: Home, Self-Care Instructions: Gastritis (ED) Additional Instructions: I believe that your pain is probably a recurrence of gastritis. This may have been triggered by the use of ibuprofen for your left ankle fracture. I would recommend stopping the ibuprofen. I have sent a prescription for omeprazole, an acid reducing medication, to your pharmacy. Please take this once a day. I have also sent a prescription for medication called sucralfate which you may take on an as-needed basis in addition to the omeprazole if necessary. Additionally there is a prescription for ondansetron which you may use as needed for nausea. Please follow up with your regular doctor soon. Return to the emergency room if significantly worse. Prescriptions: New omeprazole 40 mg capsule,delayed release(DR/EC) 40 mg PO DAILY Qty: 30 0RF sucralfate 1 gram tablet 1 g PO BID Qty: 60 0RF ondansetron 4 mg tablet,disintegrating 4 mg PO Q6H PRN (Reason: nausea and vomiting) Qty: 10 0RF No Action solifenacin 10 mg tablet 10 mg PO DAILY Qty: 90 2RF cholecalciferol (vitamin D3) 25 mcg (1,000 unit) capsule 25 mcg PO DAILY 90 Days Qty: 90 0RF nitrofurantoin monohyd/m-cryst [Macrobid] 100 mg capsule 100 mg PO BID 5 Days Qty: 10 0RF albuterol sulfate [Ventolin HFA] 90 mcg/actuation HFA aerosol inhaler 2 puff inhalation Q4-6H PRN (Reason: shortness of breath or wheezing) Qty: 8.5 0RF risperidone 0.5 mg tablet 0.5 mg PO BEDTIME mirtazapine 15 mg tablet 15 mg PO BEDTIME melatonin 5 mg tablet 500f10 mg PO BEDTIME PRN (Reason: insomnia) gabapentin 400 mg capsule 400 mg PO TID bisacodyl [Dulcolax (bisacodyl)] 5 mg tablet,delayed release (DR/EC) 20 mg PO ONCE 1 Days Qty: 4 0RF Rx Instructions: Take 4 tablets by mouth at 12:00pm the day before your procedure. Referrals: Tali Clemente MD [Primary Care Provider] - (gastritis) Interventions: ED Discharge Assessment Last Done: 02/24/24 01:38 Discharge Date/Time: 02/24/24 01:39 Print Language: Italian
[2024-02-24] MEDS: Sucralfate Oral Suspension 1 GM/10 ML ORAL.SUSP 2 GM PO (00:59)
[2024-02-24] MEDS: Omeprazole 40 MG CAPSULE.DR PO (01:25)
[2024-02-24 01:38] VITALS: BP 131/77; PULSE 86; RESP 18; TEMP 36.7; O2SAT 98
== END 2024-02-24 01:39 | disposition home or self-care (01) ==
PROVIDERS: Emergency Provider Emergency Medicine; PCP Internal Medicine
DX: R10.13 Epigastric pain (principal); R10.2 Pelvic and perineal pain; Z79.899 Other long term (current) drug therapy; Z03.818 Encounter for observation for suspected exposure to other biological agents ruled out
CPT/HCPCS: 0241U; 36415; 80048; 80076; 81001; 81025; 83690; 85025; 87086; 87088; 87186; 99283

== ENCOUNTER 2024-03-12 13:43 | Outpatient (AMB) | payer OTHER, SELFPAY ==
--- NOTE | 2024-03-12 14:08 | A.OFFVIS_ITS ---
Intake Visit Reasons: US follow up/DO NOT RS Group Burner Machine Required: Yes Group Burner Machine Language: Clinical Specialty Rep Services: Group Burner Machine Present (Endocyte) Group Burner Machine Name: Celestina [id number] Information Interpreted: clinical only Team Assistant: Team Assistant Present (Alivia) Accompanied by: Self / Same As Patient Allergies eggplant [EGGPLANT] Allergy (Severe, Verified 02/23/24 20:55) THROAT CLOSING sertraline Allergy (Severe, Verified 02/23/24 20:55) Nausea and Vomiting HPI Comments Details: Presenting for follow-up ultrasound regarding uterine myoma seen on previous pelvic ultrasound. The patient is doing well with no complaints no abnormal uterine bleeding, pelvic pressure or pain. Pelvic ultrasound done recently showed the following: The anteverted uterus measures 9.2 x 3.8 x 5.2 cm. Endometrial thickness is 5 mm. 0.9 x 0.7 x 0.7 cm hypoechoic uterine mass, previously 0.8 x 0.5 x 0.7 cm, most likely represents a fibroid. 0.4 x 0.3 x 0.3 cm very hypoechoic lesion, previously 0.4 x 0.2 x 0.3 cm, possibly representing a myometrial cyst versus hypoechoic lesion such as a fibroid. Right ovary measures 1.9 x 2.2 x 1.4 cm, volume of 3.2 mL. Left ovary measures 2.8 x 1.9 x 2.2 cm, volume 6.1 mL. Limited visualization due to bowel gas. [facility] Medical History Encounter for physical examination Chronic fatigue Mild asthma Muscle spasm Cervical radiculopathy Insomnia Depression with anxiety Surgical History Hx of colonoscopy History of cholecystectomy History of tubal ligation History of section Family History Father Hypertension Diabetes Mother Hypertension Depression H/O: pituitary tumor Mental health disorder Son Hypoplastic anemia Sister History of kidney cancer Maternal Grandmother Cancer Social History Housing: Apartment Alcohol intake: current Alcohol intake frequency: holidays/special occasions only Alcohol type: beer and wine Patient Tobacco Use Status: Current someday Tobacco user Tobacco use type: Cigarette Cigarettes Per Day: 3 e-Cigarette/Vaping Use: Never Used Second Hand Smoke Exposure: Yes Substance Use Type: Marijuana service: No Current occupational status: disabled Cognitive needs: Yes (Cane) Hearing needs: No Vision needs: Yes (Glasses) Female Reproductive History Menstrual Age of Menarche: 11 Review of Systems Const All systems reviewed & are unremarkable except as noted in HPI and below Reports as per HPI and Reports no additional complaints GI Reports no additional complaints Reports no additional complaints Assessment & Plan Assessment & Plan (1) Uterine myoma: Code(s): D25.9 - Leiomyoma of uterus, unspecified Category: Medical Plan: Discussed with the patient the findings on pelvic ultrasound & the risk of myosarcoma; discussed with the patient the options of treatment including expectant management versus hysterectomy; the pros and cons, risks benefits of each approach were discussed with the patient including the fact that in cases of myosarcoma, surgical treatment can lead to early diagnosis and positively affects the prognosis; after further discussion, the patient decided to proceed with expectant management. Will repeat pelvic ultrasound periodically. Instructions given to patient to call in case any of the following occurs: pressure symptoms, abnormal uterine bleeding, pelvic pain; and to schedule a 12- months pelvic ultrasound (order placed) and a follow-up appointment . All questions answered, the patient verbalized understanding and agreed with the plan . Orders: Orders US pelvic and transvaginal Today D25.9 - Leiomyoma of uterus, unspecified Coding Level of Care Code Est Pt Level 3 (36560) Diagnoses Uterine myoma D25.9
--- OUTSIDE RECORDS SUMMARY | 2024-03-12 17:34 | XMS_ITS | Encounter Summary ---
Author Organization 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 Name Role Phone Physician, Pcp Unknown Primary Care Provider Tila vailable Encounter Details Date Type Department Care Team (Latest Contact Info) Description 02/20/2024 7:38 AM EST - 02/20/2024 11:59 PM EST Hospital Encounter [facility] Ortho Xray [address] [place] [address] Pain Discharge Disposition: Home or Self Care Social History Tobacco Use Types Packs/Day Years Used Date Smoking Tobacco: Never Assessed Sex and Gender Information Value Date Recorded Sex Assigned at Female 01/28/2024 12:36 PM EST Gender Identity Female 01/28/2024 12:36 PM EST Sexual Orientation Not on file Job Start Date Occupation Industry Not on file Not on file Not on file documented as of this encounter Medications at Time of Discharge Medication Sig Dispensed Refills Start Date End Date acetaminophen (TYLENOL) 500 mg tablet Take 2 tablets (1,000 mg total) by mouth every 6 (six) hours if needed for mild pain or moderate pain. 60 tablet 01/28/2024 ibuprofen (ADVIL,MOTRIN) 600 mg tablet Take 1 tablet (600 mg total) by mouth every 6 (six) hours if needed for mild pain or moderate pain. 30 tablet 1 01/28/2024 oxyCODONE (ROXICODONE) 5 mg immediate release tablet Take 1 tablet (5 mg total) by mouth every 6 (six) hours if needed for severe pain. Max Daily Amount: 20 mg 15 tablet 01/28/2024 documented as of this encounter Discharge Disposition Disposition Code Departure Means Destination Home or Self Care documented in this encounter Plan of Treatment Not on file documented as of this encounter Procedures Procedure Name Priority Date/Time Associated Diagnosis Comments XR ANKLE 3+ VIEWS LEFT Routine 02/20/2024 7:52 AM EST Pain documented in this encounter Results * XR Ankle 3+ Views Left (02/20/2024 7:52 AM EST) Narrative RIS PACS/VR - 02/20/2024 8:00 AM EST This order has been auto-finalized and does not contain a result. Otf Kenny MD IMG XR PROCEDURES RIS PACS/VR documented in this encounter Visit Diagnoses Diagnosis Pain Generalized pain documented in this encounter Care Teams Waxing Machine Operator Helper Relationship Specialty Start Date End Date Physician, Pcp Unknown PCP - General 01/28/24 documented as of this encounter
--- OUTSIDE RECORDS SUMMARY | 2024-03-12 17:34 | XMS_ITS | Clinical Summary ---
Author Organization [facility] Address [address] [place] [address] Phone Care Team Providers Care Cashier Supervisor Name Role Phone Physician, Pcp Unknown Primary Care Provider Tila vailable Allergies No known active allergies Medications Medication Sig Dispensed Refills Start Date End Date Status ibuprofen (ADVIL,MOTRIN) 600 mg tablet Take 1 tablet (600 mg total) by mouth every 6 (six) hours if needed for mild pain or moderate pain. 30 tablet 1 01/28/2024 Active acetaminophen (TYLENOL) 500 mg tablet Take 2 tablets (1,000 mg total) by mouth every 6 (six) hours if needed for mild pain or moderate pain. 60 tablet 01/28/2024 Active oxyCODONE (ROXICODONE) 5 mg immediate release tablet Take 1 tablet (5 mg total) by mouth every 6 (six) hours if needed for severe pain. Max Daily Amount: 20 mg 15 tablet 01/28/2024 Active Encounters Date Type Department Care Team Description 02/20/2024 7:38 AM EST - 02/20/2024 11:59 PM EST Hospital Encounter [facility] Ortho Xray [address] [place] [address] Pain Discharge Disposition: Home or Self Care 01/28/2024 11:56 AM EST - 01/28/2024 4:34 PM EST Emergency [facility] Emergency [address] [place] [address] Ankle fracture, bimalleolar, closed, left, initial encounter (Primary Dx) Discharge Disposition: Home or Self Care from Last 3 Months Medical History Medical History Date Comments Depression Anxiety Sciatica Social History Tobacco Use Types Packs/Day Years Used Date Smoking Tobacco: Never Assessed Sex and Gender Information Value Date Recorded Sex Assigned at Female 01/28/2024 12:36 PM EST Gender Identity Female 01/28/2024 12:36 PM EST Sexual Orientation Not on file Job Start Date Occupation Industry Not on file Not on file Not on file Obstetrics History Last Filed Vital Signs Vital Sign Reading Time Taken Comments Blood Pressure 140/76 01/28/2024 4:08 PM EST Pulse 89 01/28/2024 4:08 PM EST Temperature 36.8 ??C (98.3 ??F) 01/28/2024 4:08 PM ES T Respiratory Rate 20 01/28/2024 4:08 PM EST Oxygen Saturation 100% 01/28/2024 4:08 PM EST Inhaled Oxygen Concentration - - Weight 62.6 kg (138 lb) 01/28/2024 10:28 AM EST Height 157.5 cm (5' 2 ) 01/28/2024 10:28 AM EST Body Mass Index 25.24 01/28/2024 10:28 AM EST Plan of Treatment Health Maintenance Due Date Last Done Comments Breast Cancer Screening 1975 Hepatitis B Vaccines (1 of 3 - 19+ 3-dose series) 1994 Cervical Cancer Screening: P ap Smear 1996 COVID-19 Vaccine (2023-2 5 season) 2023 Influenza Vaccine (#1) 2023 , 03/16/2020, 11/20/2018 Colorectal Cancer Screening: Colonoscopy 01/28/2024 Depression Screening 01/28/2024 HIV Screening 01/28/2024 Hepatitis C Screening 01/28/2024 Medicare Annual Wellness Visit 01/28/2024 Social Influencers of Health Screening 01/28/2024 DTaP,Tdap,and Td Vaccines (2 - Td or Tdap) 09/19/2032 09/19/2022 Pneumococcal Vaccine: Pediatrics (0 to 5 Years) and At-Risk Patients (6 to 64 Years) Aged Out 09/18/2018 No longer eligible b ased on patient's age to complete this topic HIB Vaccines Aged Out No longer eligi ble based on patient's age to complete this topic HPV Vaccines Aged Out No longer eligi ble based on patient's age to complete this topic Hepatitis A Vaccines Aged Out No long er eligible based on patient's age to complete this topic IPV Vaccines Aged Out No longer eligi ble based on patient's age to complete this topic MMR Vaccines Aged Out No longer eligi ble based on patient's age to complete this topic Meningococcal ACWY Vaccine Aged Out N o longer eligible based on patient's age to complete this topic RSV Immunization Patients Under 20 months Aged Out No longer eligible b ased on patient's age to complete this topic Varicella Vaccines Aged Out No longer eligible based on patient's age to complete this topic Procedures Procedure Name Priority Date/Time Associated Diagnosis Comments XR ANKLE 3+ VIEWS LEFT Routine 02/20/2024 7:[address] LOWER EXTREMITY WO CONTRAST LEFT STAT 01/28/2024 2:34 PM EST XR KNEE 4+ VIEWS LEFT STAT 01/28/2024 11:00 AM EST XR HIP 2-3 VIEWS LEFT STAT 01/28/2024 11:00 AM EST XR ANKLE 3+ VIEWS LEFT STAT 01/28/2024 11:00 AM EST XR FOOT 3+ VIEWS LEFT STAT 01/28/2024 11:00 AM EST from Last 3 Months Results * XR Ankle 3+ Views Left (02/20/2024 7:52 AM EST) Only the most recent of2 resultswithin the time period is included. Narrative RIS PACS/VR - 02/20/2024 8:00 AM EST This order has been auto-finalized and does not contain a result. Otf MARIE XR PROCEDURES RIS PACS/VR * CT Lower Extremity wo Contrast Left (01/28/2024 2:34 PM EST) Anatomical Region Laterality Modality Lower Extremities Left Computed Tomog mariah 01/28/2024 2:58 PM EST Impressions 01/28/2024 3:02 PM EST Obliquely oriented minimally distracted fracture of the distal fibula extending to the level of the tibiotalar articulation. Nondisplaced fracture of the posterior malleolus. -------- FINAL REPORT -------- Dictated By: Herbie Lo Dictated Date: 01/28/2024 14:58 ET Assigned Physician: Herbie Lo Reviewed and Electronically Signed By: Herbie Lo Signed Date: 01/28/2024 15:02 ET Workstation ID: [id number] Transcribed By: Self Edit Transcribed Date: 01/28/2024 14:58 ET Narrative 01/28/2024 3:[address] of the left ankle, 01/28/2024. HISTORY: Ankle fracture. COMPARISON: Same-day radiograph. Dose length product: 540 mastoiditis TECHNIQUE: Noncontrast CT of the left ankle with coronal and sagittal reformats. FINDINGS: Soft tissue swelling centered around the lateral malleolus. ??No soft tissue mass or focal fluid collection. ??Regional muscles and ligaments are grossly normal. Nondisplaced fracture of the posterior malleolus. ??Obliquely oriented nondisplaced minimally distracted fracture of the distal fibula which extends to the level of the tibiotalar articulation. ??No significant widening of the ankle mortise. ??Talar dome is intact. Procedure Note Herbie Lo MD - 01/28/2024 CT of the left ankle, 01/28/2024. HISTORY: Ankle fracture. COMPARISON: Same-day radiograph. Dose length product: 540 mastoiditis TECHNIQUE: Noncontrast CT of the left ankle with coronal and sagittalreformats. FINDINGS: Soft tissue swelling centered around the lateral malleolus. No softtissue mass or focal fluid collection. Regional muscles and ligaments aregrossly normal. Nondisplaced fracture of the posterior malleolus. Obliquely orientednondisplaced minimally distracted fracture of the distal fibula whichextends to the level of the tibiotalar articulation. No significantwidening of the ankle mortise. Talar dome is intact. IMPRESSION: Obliquely oriented minimally distracted fracture of the distal fibulaextending to the level of the tibiotalar articulation. Nondisplaced fracture of the posterior malleolus. -------- FINAL REPORT -------- Dictated By: Herbie Lo Dictated Date: 01/28/2024 14:58 ET Assigned Physician: Herbie Lo Reviewed and Electronically Signed By: Herbie Lo Signed Date: 01/28/2024 15:02 ET Workstation ID: [id number] Transcribed By: Self Edit Transcribed Date: 01/28/2024 14:[address] IM[address] PROCEDURE S * XR Foot 3+ Views Left (01/28/2024 11:00 AM EST) Anatomical Region Laterality Modality Lower Extremities, Foot Left Radiogra phic Imaging 01/28/2024 11:0 9 AM EST Narrative 01/28/2024 11:10 AM EST Please see combined report with radiographs of the left ankle. -------- FINAL REPORT -------- Dictated By: Jose David Argueta Dictated Date: 01/28/2024 11:09 ET Assigned Physician: Jose David Argueta Reviewed and Electronically Signed By: Jose David Argueta Signed Date: 01/28/2024 11:10 ET Workstation ID: [id number] Transcribed By: Self Edit Transcribed Date: 01/28/2024 11:09 ET Procedure Note Jose David Argueta MD - 01/28/2024 Please see combined report with radiographs of the left ankle. -------- FINAL REPORT -------- Dictated By: Jose David Argueta Dictated Date: 01/28/2024 11:09 ET Assigned Physician: Jose David Argueta Reviewed and Electronically Signed By: Jose David Argueta Signed Date: 01/28/2024 11:10 ET Workstation ID: [id number] Transcribed By: Self Edit Transcribed Date: 01/28/2024 11:09 ET Erika ANRDE IMG XR PROCEDURES * XR Knee 4+ Views Left (01/28/2024 11:00 AM EST) Anatomical Region Laterality Modality Lower Extremities, Knee Left Radiogra phic Imaging 01/28/2024 11:1 3 AM EST Impressions 01/28/2024 11:14 AM EST Normal examination. Code 05957 -------- FINAL REPORT -------- Dictated By: Jose David Argueta Dictated Date: 01/28/2024 11:13 ET Assigned Physician: Jose David Argueta Reviewed and Electronically Signed By: Jose David Argueta Signed Date: 01/28/2024 11:14 ET Workstation ID: [id number] Transcribed By: Self Edit Transcribed Date: 01/28/2024 11:13 ET Narrative 01/28/2024 11:14 AM EST HISTORY: The patient is a 48-year-old female with left knee pain following a fall. FINDINGS: AP, lateral, internal rotation, and external rotation views of the left knee are obtained. The study demonstrates no fracture, dislocation, arthritic change, or other bony abnormality. No joint effusion or other soft tissue abnormality is seen. Procedure Note Jose David Argueta MD - 01/28/2024 HISTORY: The patient is a 48-year-old female with left knee pain followinga fall. FINDINGS: AP, lateral, internal rotation, and external rotation views ofthe left knee are obtained. The study demonstrates no fracture,dislocation, arthritic change, or other bony abnormality. No jointeffusion or other soft tissue abnormality is seen. IMPRESSION: Normal examination. Code 79347 -------- FINAL REPORT -------- Dictated By: Jose David Argueta Dictated Date: 01/28/2024 11:13 ET Assigned Physician: Jose David Argueta Reviewed and Electronically Signed By: Jose David Argueta Signed Date: 01/28/2024 11:14 ET Workstation ID: [id number] Transcribed By: Self Edit Transcribed Date: 01/28/2024 11:13 ET Bre ANDRE IMG XR PROCEDURES * XR Hip 2-3 Views Left (01/28/2024 11:00 AM EST) Anatomical Region Laterality Modality Lower Extremities, Hip Left Radiograp hic Imaging 01/28/2024 11:1 4 AM EST Impressions 01/28/2024 11:14 AM EST Normal examination. Code 51178 -------- FINAL REPORT -------- Dictated By: Jose David Argueta Dictated Date: 01/28/2024 11:14 ET Assigned Physician: Jose David Argueta Reviewed and Electronically Signed By: Jose David Argueta Signed Date: 01/28/2024 11:14 ET Workstation ID: [id number] Transcribed By: Self Edit Transcribed Date: 01/28/2024 11:14 ET Narrative 01/28/2024 11:14 AM EST HISTORY: The patient is a 48-year-old female with left hip pain following a fall. FINDINGS: AP radiograph of the pelvis, along with coned-down AP and external rotation-abduction views of the left hip, are obtained. The study demonstrates no fracture, dislocation, arthritic change, osteolytic or osteoblastic lesion, or other bony abnormality. No soft tissue abnormality is seen. Procedure Note Jose David Argueta MD - 01/28/2024 HISTORY: The patient is a 48-year-old female with left hip pain followinga fall. FINDINGS: AP radiograph of the pelvis, along with coned-down AP andexternal rotation-abduction views of the left hip, are obtained. The studydemonstrates no fracture, dislocation, arthritic change, osteolytic orosteoblastic lesion, or other bony abnormality. No soft tissue abnormalityis seen. IMPRESSION: Normal examination. Code 97750 -------- FINAL REPORT -------- Dictated By: Jose David Argueta Dictated Date: 01/28/2024 11:14 ET Assigned Physician: Jose David Argueta Reviewed and Electronically Signed By: Jose David Argueta Signed Date: 01/28/2024 11:14 ET Workstation ID: [id number] Transcribed By: Self Edit Transcribed Date: 01/28/2024 11:14 ET Erika ANDRE IMG XR PROCEDURES from Last 3 Months Care Teams Cashier Supervisor Relationship Specialty Start Date End Date Physician, Pcp Unknown PCP - General 01/28/24
== END 2024-03-12 14:23 | disposition home or self-care (01) ==
LOC: HO.HWS 13:43
PROVIDERS: PCP Internal Medicine; Visit Provider Obstetrics & Gynecology
DX: D25.9 Leiomyoma of uterus, unspecified (principal)
CPT/HCPCS: 99213

== ENCOUNTER → 2024-03-12 13:43 | Outpatient (BNVA) | payer OTHER, SELFPAY | PROVIDERS: PCP Internal Medicine; Visit Provider Obstetrics & Gynecology | DX: D25.9 Leiomyoma of uterus, unspecified (principal) | CPT/HCPCS: 99212 ==

== ENCOUNTER 2024-03-23 16:11 | Outpatient (AMB) | payer OTHER, SELFPAY ==
--- NOTE | 2024-03-23 12:38 | MHC.OFFVIS ---
Intake Visit Reasons: CT Scan results Intake Note: Patient is present for CT SCAN RESULTS Urology Medication:SOLIFENACIN Antibiotic Allergy:NONE Blood Thinner:NONE Card Table Attendant Required: Yes Card Table Attendant Language: Marketing Director Assisted Living Name: Caroline [id number] Information Interpreted: non-clinical & clinical Allergies eggplant [EGGPLANT] Allergy (Severe, Verified 03/23/24 16:13) THROAT CLOSING sertraline Allergy (Severe, Verified 03/23/24 16:13) Nausea and Vomiting HPI Comments Details: 03/23/24--Telehealth follow up. Britta is a 49-year-old female who is here for follow-up due to recurrent UTIs and pelvic pain is using vesicare and states medication is helping. Discussed imaging. Resume Nitrofurantoin 50 mg as directed prn after sexual activity. CTAPw/wo IV contrast - no acute findings 11/21/23--Britta is a 48-year-old female who is here for follow-up due to recurrent UTIs and pelvic pain. LV - 04/18/23--She was seen last on 03/18/2023-office cystoscopy noted cystitis and urine was sent for culture which came back E coli. She was treated with a 10 day course of Levaquin. I discussed use of nitrofurantoin 50 mg post intercourse. The patient today also raises concerns that she is afraid of cancer as her sister had kidney cancer. I have reviewed with her today prior CT scan from October 2022--kidneys were normal. I have reviewed with her prior urine cytology from October 2022 which was negative for malignant cells. VESIcare 10 mg daily. Reevaluate with repeat CT abdomen. 03/18/23--Britta is a 47-year-old female who presents today office cystoscopy. She has had recurrent UTI's. The patient is a Citizen Of [place] speaking female. Certified spanish interpreter was present during the visit. She was initially referred to the urology office by her OB-OWNER SPA DIRECTOR for microscopic hematuria. 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 She is having frequent urination and has burning with urination. FH--father and sister had kidney cancer. Her sister had kidney cancer diagnosed when she was 6 yrs old and is sp nephrectomy, and her father is . I reviewed last urine c/s - 10/24/2022-- Ecoli - the patient was treated with Bactrim. 03/18/23--Office cystoscopy - Cystoscopy findings: bullous changes consistent wth cystitis, no suspicious bladder lesions visualized Test reports: I reviewed the abdomen/pelvis CT results from 09/26/2022 revealed?normal kidneys, no hydronephrosis of the right kidney. I reviewed the urine culture results from 08/08/2022 revealed Escherichia coli > 100,000 cfu/mL PFSH Medical History Encounter for physical examination Chronic fatigue Mild asthma Muscle spasm Cervical radiculopathy Insomnia Depression with anxiety Surgical History Hx of colonoscopy History of cholecystectomy History of tubal ligation History of section Family History Father Hypertension Diabetes Mother Hypertension Depression H/O: pituitary tumor Mental health disorder Son Hypoplastic anemia Sister History of kidney cancer Maternal Grandmother Cancer Social History Housing: Apartment Alcohol intake: current Alcohol intake frequency: holidays/special occasions only Alcohol type: beer and wine Patient Tobacco Use Status: Current someday Tobacco user Tobacco use type: Cigarette Cigarettes Per Day: 3 e-Cigarette/Vaping Use: Never Used Second Hand Smoke Exposure: Yes Substance Use Type: Marijuana service: No Current occupational status: disabled Cognitive needs: Yes (Cane) Hearing needs: No Vision needs: Yes (Glasses) Female Reproductive History Menstrual Age of Menarche: 11 Review of Systems Const All systems reviewed & are unremarkable except as noted in HPI and below Reports no additional complaints Eyes Reports no additional complaints ENT Reports no additional complaints Card Reports no additional complaints Resp Reports no additional complaints GI Reports no additional complaints Reports as per HPI Musc Reports no additional complaints Skin/Breast Reports system reviewed and no additional complaints, except as documented Neuro Reports no additional complaints Psych Reports no additional complaints Endo Reports no additional complaints Tu/Lymph Reports no additional complaints Aller/Immun Reports no additional complaints Telehealth Telehealth Telehealth Platform: Telephone Location of provider rendering services: practice address Location of patient: address on file Patient Identification confirmed using: Name, : Yes Telehealth method: voice only Patient verbally consented to treatment: Yes Patient verbally consented to billing insurance company: Yes Patient informed of any privacy concerns related to visit: Yes Minutes spent on Phone/Video with Pt.: 14 Results Reviewed Results Reviewed: Date of Service: 02/13/24 CT abdomen and pelvis with and without contrast Comparison: 09/26/2022 Findings: No consolidation or effusion. Unremarkable solid organs. There are no abnormal findings in the gallbladder fossa. No urolithiasis. No bowel obstruction, pneumoperitoneum, or pneumatosis. Pelvic contents unremarkable. Normal appendix. The bones are intact. IMPRESSION: No acute findings. Date of Service: 09/26/22 EXAMINATION: CT ABDOMEN AND PELVIS WITHOUT AND WITH CONTRAST CLINICAL INFORMATION: Microscopic hematuria COMPARISON: 08/10/2022 FINDINGS: LUNG BASES: The visualized lung bases are unremarkable. LIVER, GALLBLADDER, AND BILIARY TREE: The liver is normal in size, shape, and attenuation. No focal hepatic lesion or biliary ductal dilatation is present. Gallbladder is surgically absent. PANCREAS: Unremarkable SPLEEN: Unremarkable ADRENAL GLANDS: Unremarkable KIDNEYS AND URETERS: The kidneys are normal in size, shape, and attenuation. No hydronephrosis, hydroureter, or calculi seen. No perinephric stranding. BLADDER: Unremarkable GASTROINTESTINAL TRACT: The small and large bowel are unremarkable. The appendix is unremarkable. ABDOMINAL WALL: No significant hernia is appreciated. LYMPH NODES: Normal VASCULAR: Unremarkable PELVIC VISCERA: Unremarkable OSSEOUS STRUCTURES: Unremarkable IMPRESSION: No explanation for hematuria. Status post cholecystectomy. Assessment & Plan Assessment & Plan (1) Hematuria: Code(s): R31.9 - Hematuria, unspecified Category: Medical (2) Cystitis: Code(s): N30.90 - Cystitis, unspecified without hematuria Category: Medical Plan Resume Nitrofurantoin 50 mg as directed prn after sexual activity. Medications: New nitrofurantoin macrocrystal 50 mg orally use as directed by MD after sexual activity; must administer with a meal/food 30 caps 6RF Refilled solifenacin 10 mg PO DAILY 90 tabs 2RF Coding Level of Care Code Tele Est Pt Level 4 (70354) Diagnoses Hematuria R31.9 Cystitis N30.90
--- OUTSIDE RECORDS SUMMARY | 2024-03-23 16:37 | XMS_ITS | Encounter Summary ---
Author Organization [facility] [place] [address] Care Team Providers Care Diagnostic Tech Name Role Phone Physician, Pcp Unknown Primary Care Provider Tila vailable Encounter Details Date Type Department Care Team (Late st Contact Info) Description 03/23/2024 7:59 AM EST Hospital Encounter [facility] Ortho Xray [address] [place] [address] Pain Social History Tobacco Use Types Packs/Day Years Used Date Smoking Tobacco: Never Assessed Comments Unknown Sex and Gender Information Value Date Recorded Sex Assigned at Female 01/28/2024 12:36 PM EST Legal Sex Female 2:15 AM EST Gender Identity Female 01/28/2024 12:36 PM EST Sexual Orientation Not on file documented as of this encounter Plan of Treatment Not on file documented as of this encounter Procedures Procedure Name Priority Date/Time Associated Diagnosis Comments XR ANKLE 3+ VIEWS LEFT Routine 03/23/2024 8:12 AM EST Pain documented in this encounter Results * XR Ankle 3+ Views Left (03/23/2024 8:12 AM EST) Narrative RIS PACS/VR - 03/23/2024 8:12 AM EST This order has been auto-finalized and does not contain a result. us Otf Kenny MD IMG XR PROCEDURES Final Resul t RIS PACS/VR documented in this encounter Visit Diagnoses Diagnosis Pain Generalized pain documented in this encounter Care Teams Diagnostic Tech Relationship Specialty Start Date End Date Physician, Pcp Unknown PCP - General 01/28/24 documented as of this encounter
--- OUTSIDE RECORDS SUMMARY | 2024-03-23 16:37 | XMS_ITS | Clinical Summary ---
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 Name Role Phone Physician, Pcp Unknown Primary Care Provider Tila vailable Allergies No known active allergies Medications ibuprofen (ADVIL,MOTRIN) 600 mg tablet Take 1 [...] Encounters Date Type Department Care Team Description 03/23/2024 7:59 AM EST Hospital Encounter [facility] Ortho Xray [address] [place] [address] Pain 02/20/2024 7:38 AM EST - 02/20/2024 11:59 PM EST Hospital Encounter [facility] Ortho Xray [address] [place] [address] Pain Discharge Disposition: Home or Self Care 01/28/2024 11:56 AM EST - 01/28/2024 4:34 PM EST Emergency [facility] Emergency [address] [place] [address] Ankle fracture, bimalleolar, closed, left, [...] PM EST Sexual Orientation Not on file Obstetrics History Last Filed [...] of 3 - 19+ 3-dose series) 1994 10/31/2011, 10/24/2010, 09/22/2010 Cervical Cancer Screening: Pap Smear 1996 DTaP,Tdap,and Td Vaccines (2 - Td or Tdap) 10/17/2022 09/19/2022 COVID-19 Vaccine ( season) 2023 06/28/2020, 06/01/2020 Influenza Vaccine (#1) 2023 2, 03/16/2020, 11/20/2018, Additional history exists Colorectal Cancer Screening: Colonoscopy 01/28/2024 Depression Screening 01/28/2024 HIV Screening 01/28/2024 Hepatitis C Screening 01/28/2024 Medicare Annual Wellness Visit 01/28/2024 Social Influencers of Health Screening 01/28/2024 Pneumococcal Vaccine: Pediatrics (0 to 5 Years) and At-Risk Patients (6 to 64 Years) Aged Out 09/18/2018 No longer eligible based on patient's age to complete this topic HIB Vaccines Aged Out No longer eligi ble based on patient's age to complete this topic HPV Vaccines Aged Out No longer eligi ble based on patient's age to complete this topic Hepatitis A Vaccines Aged Out 10/24/2010 No long er eligible based on patient's age to complete this topic IPV Vaccines Aged Out No longer eligi ble based on patient's age to complete this topic MMR Vaccines Aged Out No longer eligi ble based on patient's age to complete this topic Meningococcal ACWY Vaccine Aged Out N o longer eligible based on patient's age to complete this topic Meningococcal B Vacine Aged Out No lo nger eligible based on patient's age to complete this topic RSV Immunization Patients Under 20 months Aged Out No longer eligible based on patient's age to complete this topic Varicella Vaccines Aged Out No longer eligible based on patient's age to complete this topic Procedures Procedure Name Priority Date/Time Associated Diagnosis Comments XR ANKLE 3+ VIEWS LEFT Routine 03/23/2024 8:12 AM EST Pain XR ANKLE 3+ VIEWS LEFT Routine 02/20/2024 [...] 3+ Views Left (03/23/2024 8:12 AM EST) Only the most recent of3 resultswithin the time period is included. Narrative RIS PACS/VR - 03/23/2024 8:12 AM EST This order has been auto-finalized and does not contain a result. us Otf Kenny MD IMG XR PROCEDURES Final Resul t RIS PACS/VR * CT Lower Extremity wo [...] Signed Date: 01/28/2024 15:02 ET Workstation ID: [id number] Transcribed By: Self Edit Transcribed Date: 01/28/2024 [...] Signed Date: 01/28/2024 15:02 ET Workstation ID: [id number] Transcribed By: Self Edit Transcribed Date: 01/28/2024 14:58 ET Deb ANDRE IMG CT PROCEDURES Final Result * XR Foot 3+ Views Left (01/28/2024 11:00 AM EST) Anatomical Region Laterality Modality Lower Extremities, Foot Left [facility] 01/28/2024 11:0 9 AM EST Narrative 01/28/2024 11:10 AM EST Please see combined report with radiographs of the left ankle. -------- FINAL REPORT -------- Dictated By: Jose David Argueta Dictated Date: 01/28/2024 11:09 ET Assigned Physician: Jose David Argueta Reviewed and Electronically Signed By: Jose David Argueta Signed Date: 01/28/2024 11:10 ET Workstation ID: [id number] Transcribed By: Self Edit Transcribed Date: 01/28/2024 11:09 ET Procedure Note Jose David Argueta MD - 01/28/2024 Please see combined report with radiographs of the left ankle. -------- FINAL REPORT -------- Dictated By: Jose David Argueta Dictated Date: 01/28/2024 11:09 ET Assigned Physician: Jose David Argueta Reviewed and Electronically Signed By: Jose David Argueta Signed Date: 01/28/2024 11:10 ET Workstation ID: [id number] Transcribed By: Self Edit Transcribed Date: 01/28/2024 11:09 ET Erika ANDRE IMG XR PROCEDURES Final Resul t * XR Knee 4+ Views Left (01/28/2024 11:00 AM EST) Anatomical Region Laterality Modality Lower Extremities, Knee Left Radiogra phic Imaging 01/28/2024 11:1 3 AM EST Impressions 01/28/2024 11:14 AM EST Normal examination. Code 86312 -------- FINAL REPORT -------- Dictated By: Jose David Argueta Dictated Date: 01/28/2024 11:13 ET Assigned Physician: Jose David Argueta Reviewed and Electronically Signed By: Jose David Argueta Signed Date: 01/28/2024 11:14 ET Workstation ID: [id number] Transcribed By: Self Edit Transcribed Date: 01/28/2024 [...] abnormality is seen. IMPRESSION: Normal examination. Code 78033 -------- FINAL REPORT -------- Dictated By: Jose David Argueta Dictated Date: 01/28/2024 11:13 ET Assigned Physician: Jose David Argueta Reviewed and Electronically Signed By: Jose David Argueta Signed Date: 01/28/2024 11:14 ET Workstation ID: [id number] Transcribed By: Self Edit Transcribed Date: 01/28/2024 11:13 ET us Bre ANDRE IMG XR PROCEDURES Final Result * XR Hip 2-3 Views Left (01/28/2024 11:00 AM EST) Anatomical Region Laterality Modality Lower Extremities, Hip Left Radiograp hic Imaging 01/28/2024 11:1 4 AM EST Impressions 01/28/2024 11:14 AM EST Normal examination. Code 81499 -------- FINAL REPORT -------- Dictated By: Jose David Argueta Dictated Date: 01/28/2024 11:14 ET Assigned Physician: Jose David Argueta Reviewed and Electronically Signed By: Jose David Argueta Signed Date: 01/28/2024 11:14 ET Workstation ID: [id number] Transcribed By: Self Edit Transcribed Date: 01/28/2024 [...] tissue abnormalityis seen. IMPRESSION: Normal examination. Code 62946 -------- FINAL REPORT -------- Dictated By: Jose David Argueta Dictated Date: 01/28/2024 11:14 ET Assigned Physician: Jose David Argueta Reviewed and Electronically Signed By: Jose David Argueta Signed Date: 01/28/2024 11:14 ET Workstation ID: [id number] Transcribed By: Self Edit Transcribed Date: 01/28/2024 11:14 ET Erika ANDRE IMG XR PROCEDURES Final Resul t from Last 3 Months Insurance [employer] MEDICARE Member Subscriber Plan / Payer (Ef fective 2013-Present) Name:Britta Jiménez Relation to Subscriber:Self Name:Britta Jiménez Payer ID:[id number] Group ID:[id number] Type:Not on file Address: [facility] [address] [address] Care Teams Combat Systems Operator Mine Warfare Relationship Specialty Start Date End Date Physician, Pcp Unknown PCP - General 01/28/24
== END 2024-03-23 16:50 | disposition home or self-care (01) ==
LOC: HO.HUSH 16:11
PROVIDERS: PCP Internal Medicine; Visit Provider Urology
DX: R31.9 Hematuria, unspecified (principal); N30.90 Cystitis, unspecified without hematuria
CPT/HCPCS: 98014

== ENCOUNTER → 2024-03-23 16:11 | Outpatient (BNVA) | payer OTHER, SELFPAY | PROVIDERS: PCP Internal Medicine; Visit Provider Urology ==

== ENCOUNTER 2024-09-23 15:24 | Outpatient (AMB) | payer OTHER, SELFPAY ==
--- OUTSIDE RECORDS SUMMARY | 2024-09-23 15:27 | XMS_ITS | Clinical Summary ---
Author Organization [facility] Address [address] [place] [address] Phone Care Team Providers Care Purchasing Engineer Name Role Phone Physician, Pcp Unknown Primary [...] Amount: 20 mg 15 tablet 01/28/2024 Active Medical History Medical History Date Comments Depression [...] 89 01/28/2024 4:08 PM EST Temperature 36.8 C (98.3 F) 01/28/2024 4:08 PM EST Respiratory Rate 20 01/28/2024 4:08 PM EST Oxygen Saturation 100% 01/28/2024 4:08 PM EST Inhaled Oxygen Concentration - - Weight 62.6 kg (138 lb) 01/28/2024 10:28 AM EST Height 157.5 cm (5' 2 ) 01/28/2024 10:28 AM EST Body Mass Index 25.24 01/28/2024 10:28 AM EST Plan of Treatment Health Maintenance Due Date Last Done Comments Breast Cancer Screening 1975 Cervical Cancer Screening: Pap Smear 1996 COVID-19 Vaccine ( season) 2023 06/28/2020, 06/01/2020 Colorectal Cancer Screening: Colonoscopy 01/28/2024 HIV Screening 01/28/2024 Hepatitis C Screening 01/28/2024 Medicare Annual Wellness Visit 01/28/2024 Social Influencers of Health Screening 01/28/2024 Depression Screening 02/12/2024 Influenza Vaccine (#1) 2024 , 03/16/2020, 11/20/2018, Additional history exists DTaP,Tdap,and Td Vaccines (2 - Td or Tdap) 09/19/2032 09/19/2022 Hepatitis A Vaccines Aged Out 10/24/2010 No long er eligible based on patient's age to complete this topic Hepatitis B Vaccines Completed 10/31/2011, 10/24/2010, 09/22/2010 Pneumococcal Vaccine: Pediatrics (0 to 5 Years) and At-Risk Patients (6 to 49 Years) Aged Out 09/18/2018 No longer eligible [...] age to complete this topic Meningococcal B Vaccine Aged Out No l onger eligible based on patient's age to complete this topic RSV Immunization Patients Under 20 months Aged Out No longer eligible based on patient's age to complete this topic Varicella Vaccines Aged Out No longer eligible based on patient's age to complete this topic Insurance [employer] MEDICARE Member Subscriber Plan / Payer (Ef fective 2013-Present) Name:BRITTA VALENTIN Relation to Subscriber:Self Name:Britta Valentin Payer ID:[id number] Group ID:[id number] Type:Not on file Address: [facility] [address] [address] Care Teams Purchasing Engineer Relationship Specialty Start Date End Date Physician, Pcp Unknown PCP - General 01/28/24
--- OUTSIDE RECORDS SUMMARY | 2024-09-23 15:27 | XMS_ITS | Clinical Summary ---
Author Organization [facility] Address [address] [place] [address] Phone Care Team Providers Care Weight Recorder Name Role Phone Yokasta Santiago SKATES OPERATOR Primary Care Provider [phone] Allergies No known active allergies Medications mirtazapine (REMERON) 15 MG tablet Take 15 mg by mouth nightly. Active gabapentin (NEURONTIN) 300 MG capsule Take 300 mg by mouth 3 (three) times a day. Active LORazepam (ATIVAN) 0.5 MG tablet Take 0.5 mg by mouth every 6 (six) hours as needed for anxiety. Active melatonin 1 mg Tab Take 10 mg by mouth nightly. Active raNITIdine (ZANTAC) 150 MG tablet Take 150 mg by mouth daily. Active ARIPiprazole (ABILIFY) 5 MG tablet Take 5 mg by mouth. Active montelukast (SINGULAIR) 10 mg tablet Take 10 mg by mouth daily as needed. Active Social History Tobacco Use Types Packs/Day Years Used Date Smoking Tobacco: Light Smoker Smokeless Tobacco: Never Comments:1 cigarette per day Alcohol Use Standard Drinks/Week Comments Yes 0 (1 standard drink = 0.6 oz pur e alcohol) on holidays Education Answer Date Recorded Are you interested in more education? Not on sidra e 06/08/2022 Are you concerned about learning? Not on file 06/08/2022 No 06/08/2022 No 06/08/2022 Digital Access Answer Date Recorded No 07/10/2022 No 07/10/2022 No 07/10/2022 Reliable internet access at home? Not on file 07/10/2022 Device with a working camera? Not on file Comments No Sex and Gender Information Value Date Recorded Sex Assigned at Female 11/07/2017 10:54 AM EDT Legal Sex Female 10:19 AM EDT Gender Identity Female 11/07/2017 10:54 AM EDT Sexual Orientation Not on file Last Filed Vital Signs Vital Sign Reading Time Taken Comments Blood Pressure 110/74 11/07/2017 1:56 PM EDT Pulse 78 11/07/2017 1:56 PM EDT Temperature 36.9 C (98.4 F) 11/07/2017 1:56 PM EDT Respiratory Rate 18 11/07/2017 1:56 PM EDT Oxygen Saturation 100% 11/07/2017 1:56 PM EDT Inhaled Oxygen Concentration - - Weight 59.9 kg (132 lb) 11/07/2017 10:51 AM EDT Height 157.5 cm (5' 2 ) 11/07/2017 10:51 AM EDT Body Mass Index 24.14 11/07/2017 10:51 AM EDT Plan of Treatment Not on file Medical Devices Not on file Insurance MEDICARE REPLACEMENT [address] [id number] MEDICARE REPLACEMENT MEDICARE REPLACEMENT MEDICARE REPLACEMENT MEDICARE REPLACEMENT MEDICARE REPLACEMENT MEDICARE REPLACEMENT MEDICARE [address] [address] [place] [address] [employer]ARE MEDICARE REPLACEMENT Care Teams Weight Recorder Relationship Specialty Start Date End Date Yokasta Santiago NP [address] [place] [address] [address] [place] [address] PCP - General Family Medicine 11/07/17 Additional Source Comments The information contained in this document represents components of the legal health record. It is not the complete legal health record.[facility]
--- NOTE | 2024-09-23 15:44 | MHC.PC.OV ---
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[employer] Required: No Accompanied by: Self / Same As Patient Allergies eggplant (EGGPLANT) Allergy (Severe, Verified 09/23/24 16:44) THROAT CLOSING sertraline Allergy (Severe, Verified 09/23/24 16:44) Nausea and Vomiting Medication List - Last Reconciled 09/23/24 by Tali Rivera MD albuterol sulfate 90 mcg/actuation (Ventolin HFA) 2 puffs inhalation Q4-6H PRN bisacodyl (Dulcolax (bisacodyl)) 20 mg (4 x 5 mg) PO ONCE 1 day cefuroxime axetil 250 mg PO BID cholecalciferol (vitamin D3) 25 mcg PO DAILY 90 days gabapentin 400 mg PO TID melatonin 500f10 mg PO BEDTIME PRN mirtazapine 15 mg PO BEDTIME [Nebulizer Machine As directed] nitrofurantoin macrocrystal 50 mg orally use as directed by MD after sexual activity; must administer with a meal/food nitrofurantoin monohyd/m-cryst 100 mg (Macrobid) 100 mg PO BID 5 days omeprazole 40 mg PO DAILY ondansetron 4 mg PO Q6H PRN risperidone 0.5 mg PO BEDTIME solifenacin 10 mg PO DAILY sucralfate 1 g PO BID Tobacco use date assessed: 09/19/22 Dental Screening Dental Screen Date: 09/19/22 Did you have a dental visit in the last 12 months?: No Did you have a dental problem in the last 6 months where you did not have access to dental care?: No Was dental information given to patient?: No HPI HPI Comments History of Present Illness Details The patient is a 49-year-old female presenting for a wellness visit and physical examination. 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 The patient has a history of gastritis, which was previously managed with Carafate. She reports experiencing anxiety and depression, for which she uses marijuana to manage her symptoms. She has an upcoming appointment with her psychologist and had a recent session last week. The patient has a history of hematuria, previously evaluated by a urologist, who prescribed medication. A CT scan of the abdomen and pelvis conducted in February was normal. Family history is significant for kidney cancer in her father and sister, as well as diabetes and a pituitary tumor in her mother. The patient is experiencing perimenopausal symptoms, including irregular menstrual cycles and hot flashes at night. [facility] Medical History (Updated 09/23/24 @ 16:59 by Tali Rivera MD) Encounter for physical examination Chronic fatigue Mild asthma Muscle spasm Cervical radiculopathy Insomnia Depression with anxiety Surgical History Hx of colonoscopy History of cholecystectomy History of tubal ligation History of section Family History (Updated 09/23/24 @ 16:51 by Tali Rivera MD) Father Hypertension Diabetes Renal cancer Mother Hypertension Depression H/O: pituitary tumor Mental health disorder Son Hypoplastic anemia Sister History of kidney cancer, Onset Age: 6 Diabetes Maternal Grandmother Cancer Social History (Updated 09/23/24 @ 16:52 by Tali Rivera MD) Housing: Apartment Alcohol intake: current Alcohol intake frequency: holidays/special occasions only Alcohol type: beer and wine Patient Tobacco Use Status: Former Tobacco user Tobacco use type: Cigarette Cigarettes Per Day: 3 e-Cigarette/Vaping Use: Never Used Second Hand Smoke Exposure: Yes Substance Use Type: Marijuana service: No Current occupational status: disabled Cognitive needs: Yes (Cane) Hearing needs: No Vision needs: Yes (Glasses) Female Reproductive History Menstrual Age of Menarche: 11 Questionnaire PHQ-9 Over the last 2 weeks, how often have you been bothered by any of the following problems? 1. Little interest or pleasure in doing things: more than half the days 2. Feeling down, depressed, or hopeless: several days 3. Trouble falling or staying asleep, or sleeping too much: several days 4. Feeling tired or having little energy: nearly every day 5. Poor appetite or overeating: not at all 6. Feeling bad about yourself - or that you are a failure or have let yourself or your family down: not at all 7. Trouble concentrating on things, such as reading the newspaper or watching television: more than half the days 8. Moving or speaking so slowly that other people could have noticed. Or the opposite - being so fidgety or restless that you have been moving around a lot more than usual: nearly every day 9. Thoughts that you would be better off or of hurting yourself in some way: not at all Total score: 12 Depression Screening Interpretation: Positive Depression Screening Follow-up: Existing condition and Follow-up Visit Requested Depression Screening Done: Yes 75801 - PHQ-9 Billing: Yes Source: Developed by Drs. Joseluis Espinoza, Mirtha Link, Jonathan Trejo and colleagues, with an educational maryan from [employer]. Thrive Questionnaire Date Thrive assessed: 09/23/24 I am a: Patient What is your living situation today?: I have a steady place to live Within the past 12 months, did the food you bought not last and you didn't have the money to get more?: I choose not to answer this question Within the past 12 months, did you worry whether your food would run out before you got money to buy more?: Often true Do you have trouble paying for medicines?: No Do you have trouble getting transportation to medical appointments?: No Do you have trouble paying your heating and electricity bill?: No Do you have trouble taking care of your child, family member or friend?: No Do you have trouble with day-to-day activities such as bathing, preparing meals, shopping, managing finances, etc.?: No Are you currently unemployed and looking for a job?: No Are you interested in more education?: No Please select the resources that you would like help with: None Currently or been in a relationship where the following occur: No concerns reported THRIVE Score: 1 AUDIT C Alcohol Use Questionnaire (AUDIT-C) 1. How often do you have a drink containing alcohol?: Monthly or less 2. How many drinks containing alcohol do you have on a typical day when you are drinking?: 1 or 2 3. How often do you have six or more drinks on one occasion?: Never Total Score: 1 Score Reviewed/Action Taken: No HELDER-7 AMB Questionnaire HELDER-7 Date HELDER - 7 assessed: 09/04/22 Feeling nervous, anxious, or on edge: 2 = More than half the days Not being able to stop or control worryin = More than half the days Worrying too much about different things: 2 = More than half the days Trouble relaxin = Nearly every day Being so restless that it is hard to sit still: 3 = Nearly every day Becoming easily annoyed or irritable: 2 = More than half the days Feeling afraid as if something awful might happen: 1 = Several days Total HELDER-7 score (0-4 normal; 5-9 mild; 10-14 moderate; 15-21 severe): 15 Source: Developed by Drs. Joseluis Espinoza, Mirtha Link, Jonathan Trejo and colleagues, with an educational maryan from [employer]. HELDER-7 Assessment Billing HELDER-7 Assessment Tool: HELDER-7 Assessment 19379 Review of Systems Const All systems reviewed & are unremarkable except as noted in HPI and below Card Denies chest pain at rest, Denies chest pain with activity, Denies edema, Denies irregular heart rhythm, Denies claudication, Denies dyspnea, Denies dyspnea on exertion, Denies orthopnea, Denies paroxysmal nocturnal dyspnea and Denies slow heart rate Resp Denies cough, Denies dyspnea and Denies dyspnea on exertion GI Denies abdominal pain, Denies change in bowel habits, Denies excessive flatus, Denies nausea and Denies vomiting Denies urinary incontinence, Denies urinary hesitancy and Denies urinary urgency Musc Denies abnormal gait, Denies atrophy, Denies deformity and Denies limited range of motion Skin/Breast Denies bleeding lesions, Denies changing lesions and Denies rash Neuro Denies abnormal gait, Denies behavioral changes and Denies lack of coordination Psych Denies behavioral changes Physical exam (Primary Care) Vital Signs: Last Vital Signs Pulse 61 09/23/24 15:47 BP 130/80 09/23/24 15:47 Pulse Ox 98 09/23/24 15:47 BMI result Body Mass Index 25.5 Tobacco/Smoking Status: Tobacco use Status Tobacco use date assessed 09/19/22 09/23/24 15:50 Patient Tobacco Use Status Former Tobacco user 09/23/24 16:52 Tobacco use type Cigarette 09/23/24 16:52 e-Cigarette/Vaping Use Never Used 09/23/24 16:52 PHQ-9: PHQ-9 Score PHQ-9: Total score 12 09/23/24 16:53 Depression Screening Interpretation: Positive Depression Screening Follow-up: Existing condition and Follow-up Visit Requested Thrive Assessment: Date of Thrive Assessment Date Thrive assessed 09/23/24 09/23/24 15:50 Currently or been in a relationship where the following occur: No concerns reported [facility] Head: Yes normal to inspection, Yes normocephalic and Yes atraumatic Ears: external ears normal Eyes General: appearance normal, both eyes and all related structures Eyelids: Yes eyelids normal Conjunctivae: conjunctivae normal Neck Neck: Yes normal visual inspection and Yes supple Resp Effort & Inspection: normal respiratory effort Auscultation: clear to auscultation bilaterally Cardio Jugular venous distension: no JVD Rate: regular rate Rhythm: regular rhythm Heart sounds: S1 normal heart sound present and S2 normal heart sound present GI Inspection: Yes normal to inspection Palpation (GI): Soft to palpation and nontender Auscultation: normal bowel sounds Skin General skin exam: no rashes or lesions noted Neuro General: no focal motor deficits Extrem General: Yes full ROM Psych Appearance: grossly normal Coding Level of Care Code Est Pt Prev Care 40-64y(03575) Diagnoses Physical exam Z00.00 Additional Codes HELDER-7 Assessment Billing - HELDER-7 Assessment Tool: HELDER-7 Assessment 08808 ([id number]) PHQ-9 - 95139 - PHQ-9 Billing: Yes ([id number]) Time Spent (min) 30 Assessment & Plan Assessment & Plan (1) Physical exam: Code(s): Z00.00 - Encounter for general adult medical examination without abnormal findings Category: Medical Plan The patient will continue to avoid eggplant due to her allergy and has discontinued sertraline due to adverse effects. For her gastritis, she will continue with dietary modifications and use of Carafate as needed. Her anxiety and depression are being managed with psychological support, and she has an upcoming appointment with her psychologist. The patient will follow up with her urologist regarding hematuria, and renal function tests will be conducted to monitor kidney health. Given her family history, she will continue regular screenings for kidney health and diabetes. Perimenopausal symptoms will be monitored, and lifestyle modifications will be discussed to manage symptoms. Patient was informed and verbally consented to the use of an ambient scribe for clinic note documentation during this visit. Orders: Orders Lipid Panel Today E78.5 - Hyperlipidemia, unspecified Vitamin D 25-OH Total Today E55.9 - Vitamin D deficiency, unspecified Comprehensive Stryker. Panel Fast Today Z00.00 - Encounter for general adult medical examination without abnormal findings Thyroid Stimulating Hormone Today Z83.49 - Family history of other endocrine, nutritional and metabolic diseases Medications: Refilled solifenacin 10 mg PO DAILY 90 tabs 2RF nitrofurantoin macrocrystal 50 mg orally use as directed by MD after sexual activity; must administer with a meal/food 30 caps 6RF Discontinued sucralfate Discontinued Reason: Patient Completed Course 1 g PO BID 60 tabs 0RF Epigastric pain cefuroxime axetil Discontinued Reason: Patient Completed Course 250 mg PO BID 14 tabs 0RF nitrofurantoin monohyd/m-cryst 100 mg (Macrobid) Discontinued Reason: Patient Completed Course 100 mg PO BID 5 days 10 caps 0RF
[2024-09-23 15:47] VITALS: BP 130/80; PULSE 61; O2SAT 98; BMI 25.5
== END 2024-09-23 17:01 | disposition home or self-care (01) ==
LOC: HO.HMCH 15:25
PROVIDERS: PCP Internal Medicine; Visit Provider Internal Medicine
DX: Z00.00 Encounter for general adult medical examination without abnormal findings (principal)

== ENCOUNTER → 2024-09-23 15:24 | Outpatient (BNVA) | payer OTHER, SELFPAY | PROVIDERS: PCP Internal Medicine; Visit Provider Internal Medicine | DX: Z00.00 Encounter for general adult medical examination without abnormal findings (principal); K29.70 Gastritis, unspecified, without bleeding; F41.9 Anxiety disorder, unspecified; F32.A Depression, unspecified; R31.9 Hematuria, unspecified; E11.9 Type 2 diabetes mellitus without complications; E78.5 Hyperlipidemia, unspecified; E55.9 Vitamin D deficiency, unspecified; Z83.49 Family history of other endocrine, nutritional and metabolic diseases; Z91.018 Allergy to other foods | CPT/HCPCS: 96127; 99396 ==

== ENCOUNTER 2024-10-06 13:15 | Outpatient (REF) | payer OTHER, SELFPAY ==
--- OUTSIDE RECORDS SUMMARY | 2024-10-06 14:06 | XMS_ITS | Clinical Summary ---
Author Organization [facility] Address [address] [place] [address] Phone Care Team Providers Care Syrup Maker Name Role Phone Yokasta Santiago MENTAL HEALTH ADVANCED PRACTICE NURSE Primary Care Provider [phone] Allergies No known active allergies Medications mirtazapine [...] on file Insurance MEDICARE REPLACEMENT [address] [id number] MEDICARE REPLACEMENT MEDICARE REPLACEMENT MEDICARE REPLACEMENT MEDICARE REPLACEMENT MEDICARE REPLACEMENT MEDICARE REPLACEMENT MEDICARE RE[place]AC[place] [address] [address] ONE [employer] MEDICARE REPLACEMENT Care Teams Syrup Maker Relationship Specialty Start Date End Date Yokasta Santiago NP [address] [place] [address] [address] [place] [address] PCP - General Family Medicine 11/07/17 Additional Source Comments The information contained in this document represents components of the legal health record. It is not the complete legal health record.[facility]
--- OUTSIDE RECORDS SUMMARY | 2024-10-06 14:06 | XMS_ITS | Clinical Summary ---
Author Organization [facility] Address [address] [place] [address] Phone Care Team Providers Care Environmental Health Technician Name Role Phone Physician, Pcp Unknown Primary [...] ID:[id number] Group ID:[id number] Type:Not on file Address: [facility] [address] [address] Care Teams Environmental Health Technician Relationship Specialty Start Date End Date Physician, Pcp Unknown PCP - General 01/28/24
[2024-10-06 15:18] LABS: Alanine Aminotransferase 18 U/L (0-31); Albumin Level 4.5 g/dL (3.5-5.0); Alkaline Phosphatase 57 U/L (39-117); Anion Gap 13 (12-20); Aspartate Amino Transferase 24 U/L (5-31); Blood Urea Nitrogen 9 mg/dL (9-16); Calcium 8.7 mg/dL (8.4-10.2); Carbon Dioxide 21 mmol/L (22-29); Chloride 108 mmol/L (96-108); Cholesterol 183 mg/dL (<200); Estimated Glomerular Filt Rate > 60; HDL Cholesterol 45 mg/dL (>40); Potassium 3.8 mmol/L (3.3-5.1); Sodium 138 mmol/L (135-145); Total Protein 7.4 g/dL (6.5-8.0); Triglycerides 143 mg/dL (<150)
[2024-10-06 15:21] LABS: Thyroid Stimulating Hormone 0.93 uIU/mL (0.32-4.0)
== END 2024-10-06 13:16 | disposition home or self-care (01) ==
LOC: HO.LAB 13:15
PROVIDERS: PCP Internal Medicine; Visit Provider Internal Medicine
DX: Z00.00 Encounter for general adult medical examination without abnormal findings (principal); E55.9 Vitamin D deficiency, unspecified; E78.5 Hyperlipidemia, unspecified; Z83.49 Family history of other endocrine, nutritional and metabolic diseases
CPT/HCPCS: 36415; 80053; 80061; 82306; 84443

== ENCOUNTER 2024-11-19 11:07 | Emergency (ER) | payer OTHER, SELFPAY ==
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
[2024-11-19 11:12] VITALS: BP 148/81; PULSE 77; O2SAT 100
[2024-11-19 11:14] VITALS: BP 146/64; PULSE 88; RESP 18; TEMP 36.9; O2SAT 98; BMI 26.7
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
[2024-11-19] MEDS: Lidocaine 4 % Patch ADH..PATCH 1 PATCH TRANSDERMA (12:09)
--- NOTE | 2024-11-19 12:14 | PC.NURSE ---
pt medicated for lt arm pain, pt also now complaining of rib pain and family wanting xrays of ribs, will notify provider
--- NOTE | 2024-11-19 12:25 | PC.NURSE ---
pt now complaining of lt rib pain, family at bedside requesting the provider do xrays, provider was notified of this request
[2024-11-19 13:54] VITALS: BP 139/75; PULSE 86; RESP 18; TEMP 36.8; O2SAT 98
== END 2024-11-19 13:55 | disposition home or self-care (01) ==
PROVIDERS: Emergency Provider Emergency Medicine; PCP Internal Medicine
DX: T14.90XA Injury, unspecified, initial encounter (principal); V43.52XA Car driver injured in collision with other type car in traffic accident, initial encounter; W22.11XA Striking against or struck by driver side automobile airbag, initial encounter; Y93.9 Activity, unspecified; Y92.9 Unspecified place or not applicable; Y99.9 Unspecified external cause status; R10.A2 Flank pain, left side; M62.838 Other muscle spasm; M54.2 Cervicalgia; R51.9 Headache, unspecified
CPT/HCPCS: 71101; 96372; 99284; J1885

== ENCOUNTER → 2024-11-19 12:27 | Outpatient (BNV) | payer OTHER, SELFPAY | PROVIDERS: Emergency Provider Emergency Medicine; PCP Internal Medicine; Visit Provider Radiology Diagnostic Radiology | DX: Z04.3 Encounter for examination and observation following other accident (principal) | CPT/HCPCS: 71101 ==

== ENCOUNTER 2024-11-27 15:04 | Outpatient (AMB) | payer OTHER, SELFPAY ==
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
[2024-11-27 15:18] VITALS: BP 122/82; PULSE 78; TEMP 36.4; O2SAT 98; BMI 24.4
--- OUTSIDE RECORDS SUMMARY | 2024-11-27 17:35 | XMS_ITS | Clinical Summary ---
Author Organization [facility] Address [address] [place] [address] Phone Care Team Providers Care National Insurance Officer Name Role Phone Physician, Pcp Unknown Primary [...] Last Done Comments Breast Cancer Screening 1975 Colorectal Cancer Screening: Colonoscopy 1975 Cervical Cancer Screening: Pap Smear 1996 HIV Screening 01/28/2024 Hepatitis C Screening 01/28/2024 Medicare Annual Wellness Visit 01/28/2024 Social Influencers of Health Screening 01/28/2024 Depression Screening 02/12/2024 COVID-19 Vaccine ( season) 2024 06/28/2020, 06/01/2020 Influenza Vaccine (#1) 2024 , 03/16/2020, 11/20/2018, Additional history exists DTaP,Tdap,and Td Vaccines (2 - Td or Tdap) 09/19/2032 09/19/2022 RSV Immunization Adult Patients (1 - 1-dose 75+ series) 2050 Hepatitis A Vaccines Aged Out 10/24/2010 No [...] ID:[id number] Group ID:[id number] Type:Not on file Address: [place] [address] [address] Care Teams National Insurance Officer Relationship Specialty Start Date End Date Physician, Pcp Unknown PCP - General 01/28/24
== END 2024-11-27 15:48 | disposition home or self-care (01) ==
LOC: HO.HMCH 15:05
PROVIDERS: PCP Internal Medicine; Visit Provider Nurse Practitioner Family
DX: M54.16 Radiculopathy, lumbar region (principal); S46.812A Strain of other muscles, fascia and tendons at shoulder and upper arm level, left arm, initial encounter